=== PATIENT | male | born 1980 | race Caucasian/White ===

== ENCOUNTER 2016-11-22 23:59 | Inpatient (IN) | payer MEDICARE, MEDICAID ==
--- NOTE | 2016-11-23 00:35 | ED ---
Willard Charlton Benjamin, scribed for Adolph Coombs MD on 11/23/16 at 0021 . Psychiatric Complaint - HPI Summary HPI Summary: 36yo male reporting SI. Pt moved up from [place] and has been off his meds for couple of weeks. Pt states drinking alcohol earlier today. - History Of Current Complaint Chief Complaint: EDMentalHealth Time Seen by Provider: 11/23/16 00:15 Hx Obtained From: Patient Onset/Duration: Sudden Onset, Lasting Hours, Still Present Timing: Constant Severity Initially: Moderate Severity Currently: Moderate Character: Depressed Aggravating Factor(s): Nothing Alleviating Factor(s): Nothing Associated Signs And Symptoms: Positive: Negative - Allergies/Home Medications Allergies/Adverse Reactions: Allergies Allergy/AdvReac Type Severity Reaction Status Date / Time Valproic Acid [From Depakote] Allergy Vomiting Verified 11/23/16 00:03 PMH/Surg Hx/FS Hx/Imm Hx Cardiovascular History: Reports: Hx Hypertension Infectious Disease History: No Infectious Disease History: Denies: Traveled Outside the US in Last 30 Days - Family History Known Family History: Positive: Cardiac Disease, Hypertension, Diabetes, Other - CA - Social History Occupation: Unemployed Alcohol Use: Daily Smoking Status (MU): Current Every Day Smoker Review of Systems Constitutional: Negative Eyes: Negative ENT: Negative Cardiovascular: Negative Respiratory: Negative Gastrointestinal: Negative Genitourinary: Negative Musculoskeletal: Negative Skin: Negative Neurological: Negative Positive: Depressed, Other - SI All Other Systems Reviewed And Are Negative: Yes Physical Exam Triage Information Reviewed: Yes Vital Signs On Initial Exam: Initial Vitals Temp Pulse Resp BP Pulse Ox 98.3 F 102 18 132/92 97 11/23/16 00:03 11/23/16 00:03 11/23/16 00:03 11/23/16 00:03 11/23/16 00:03 Vital Signs Reviewed: Yes Appearance: Positive: No Pain Distress Skin: Positive: Warm Head/Face: Positive: Normal Head/Face Inspection Eyes: Positive: FREDDY ENT: Positive: Hearing grossly normal Neck: Positive: Supple Respiratory/Lung Sounds: Positive: Breath Sounds Present Cardiovascular: Positive: RRR Abdomen Description: Positive: Nontender, Soft Musculoskeletal: Positive: Strength/ROM Intact Neurological: Positive: Alert, Oriented to Person Place, Time Psychiatric: Positive: Anxious Diagnostics - Vital Signs Vital Signs Temp Pulse Resp BP Pulse Ox 11/23/16 00:03 98.3 F 102 18 132/92 97 - Laboratory Result Diagrams: 11/23/16 00:36 11/23/16 00:36 Lab Statement: Any lab studies that have been ordered have been reviewed, and results considered in the medical decision making process. Course/Dx - Differential Dx/Clinical Impression Provider Diagnosis: Suicidal ideations - Physician Notifications Instructed by Provider To: Admit As Inpatient Discharge - Discharge Plan Condition: Fair Disposition: ADMITTED TO [facility] Referrals: No Primary Care Phys,NOPCP [Primary Care Provider] - The documentation as recorded by the Willard han Benjamin accurately reflects the service I personally performed and the decisions made by me, Adolph Coombs MD.
[2016-11-23 00:52] LABS: Hematocrit 50 % (42-52); Hemoglobin 17.2 g/dl (14.0-18.0); Mean Corpuscular HGB Conc 34 g/dl (31-36); Mean Corpuscular Hemoglobin 31 pg (27-31); Mean Corpuscular Volume 90 fL (80-94); Mean Platelet Volume 8 um3 (7.4-10.4); Red Blood Count 5.62 10^6/ul (4.0-5.4); Red Cell Distribution Width 13 % (10.5-15); Urine Bilirubin Negative (Negative); Urine Glucose Negative (Negative); Urine Nitrite Negative (Negative); White Blood Count 8.1 10^3/ul (3.5-10.8)
[2016-11-23] MEDS ORDERED: LORazepam TAB(*) 1 MG PO ONE ×2 (01:08→01:09)
[2016-11-23 01:09] LABS: ALT 25 U/L (7-52); AST 23 U/L (13-39); Acetaminophen < 15 mcg/mL; Albumin 5.1 g/dL (3.2-5.2); Alcohol 175 mg/dL (<10); Alkaline Phosphatase 109 U/L (34-104); Anion Gap 11 mmol/L (2-11); BUN/Creatinine Ratio 9.9 (8-20); Blood Urea Nitrogen 9 mg/dL (6-24); CO2 Carbon Dioxide 23 mmol/L (22-32); Calcium 9.4 mg/dL (8.6-10.3); Chloride 104 mmol/L (101-111); EGFR African American 120.6 (>60); EGFR Non-African American 93.7 (>60); Globulin 2.8 g/dL (2-4); Glucose 83 mg/dL (70-100); Salicylate < 2.50 mg/dL (<30); Sodium 138 mmol/L (133-145); Total Protein 7.9 g/dL (6.4-8.9)
[2016-11-23 01:13] LABS: Benzodiazepine Urine Screen None Detected (None Detect)
[2016-11-23 01:20] LABS: TSH (Thyroid Stimulating Horm) 0.78 mcIU/mL (0.34-5.60)
[2016-11-23 09:22] LABS: Creatine Kinase 241 U/L (10-223)
[2016-11-23] MEDS ORDERED: Al Hydrox/Mg Hydrox/Simet LIQ* 30 ML UDC PO PRN (12:31)
[2016-11-23] MEDS ORDERED: Acetaminophen TAB* 325 MG PO PRN (12:31)
[2016-11-23] MEDS ORDERED: Nicotine GUM* 2 MG PO PRN (12:31)
[2016-11-23] MEDS ORDERED: Haloperidol TAB* 5 MG PO PRN (12:34)
[2016-11-23] MEDS ORDERED: Mouth Piece, Nicotine* 1 EACH CARTRIDGE ONE (13:21)
[2016-11-23] MEDS: Nicotine Inhaler* 10 MG AMP INH PRN ×2 (13:22→20:54)
[2016-11-23] MEDS: Gabapentin CAP(*) 300 MG PO SCH ×2 (14:31→20:55)
[2016-11-23] MEDS: Cyclobenzaprine TAB* 10 MG PO PRN ×2 (14:32→20:56)
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
[2016-11-24 08:01] VITALS: BP 121/73
[2016-11-24] MEDS: Gabapentin CAP(*) 300 MG PO SCH (08:21)
[2016-11-24] MEDS: Cyclobenzaprine TAB* 10 MG PO PRN (08:23)
[2016-11-24] MEDS: Nicotine Inhaler* 10 MG AMP INH PRN ×2 (08:23→10:46)
[2016-11-24] MEDS ORDERED: BuPROPion XL* 150 MG TAB.XL PO SCH (09:00)
[2016-11-24] MEDS ORDERED: Vitamin THERAPEUTIC TAB PO SCH (09:00)
--- NOTE | 2016-11-24 11:57 | PN ---
[facility]HU: Group Therapy Note - Service Type Service Type: 72060 Group Psychotherapy - Cognitive Behavioral Therapy (CBT): Patient presents with high volume of speech that impresses as being coherent within the context of self-report, but is tangential and off topic in group context. Concerns regarding disorganization of thought are apparent.
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
== END 2016-11-24 13:20 | disposition home or self-care (01) | DRG 897 ==
LOC: ED 23:59 → BSU 11-23 09:37
PROVIDERS: ADMIT Psychiatry & Neurology Psychiatry; ATTEND Psychiatry & Neurology Psychiatry
DX: F10.159 Alcohol abuse with alcohol-induced psychotic disorder, unspecified (principal); R45.851 Suicidal ideations; F12.10 Cannabis abuse, uncomplicated; Y90.6 Blood alcohol level of 120-199 mg/100 ml; M54.9 Dorsalgia, unspecified; R45.850 Homicidal ideations; F22 Delusional disorders; Z81.1 Family history of alcohol abuse and dependence
CPT/HCPCS: 36415; 70450; 80053; 80307; 80320; 80329; 81003; 82550; 84443; 85025; A9270-GY; G0480

== ENCOUNTER 2016-12-08 09:21 | Inpatient (IN) | payer MEDICARE ==
[2016-12-08 10:32] LABS: Hematocrit 50 % (42-52); Hemoglobin 17.1 g/dl (14.0-18.0); Mean Corpuscular HGB Conc 34 g/dl (31-36); Mean Corpuscular Hemoglobin 31 pg (27-31); Mean Corpuscular Volume 92 fL (80-94); Mean Platelet Volume 8 um3 (7.4-10.4); Red Blood Count 5.49 10^6/ul (4.0-5.4); Red Cell Distribution Width 13 % (10.5-15); White Blood Count 7.9 10^3/ul (3.5-10.8)
[2016-12-08 10:51] LABS: ALT 15 U/L (7-52); AST 18 U/L (13-39); Albumin 4.6 g/dL (3.2-5.2); Alkaline Phosphatase 92 U/L (34-104); Anion Gap 6 mmol/L (2-11); BUN/Creatinine Ratio 15.3 (8-20); Blood Urea Nitrogen 13 mg/dL (6-24); CO2 Carbon Dioxide 26 mmol/L (22-32); Calcium 9.3 mg/dL (8.6-10.3); Chloride 104 mmol/L (101-111); EGFR African American 130.4 (>60); EGFR Non-African American 101.4 (>60); Globulin 2.8 g/dL (2-4); Glucose 91 mg/dL (70-100); Potassium 3.6 mmol/L (3.5-5.0); Sodium 136 mmol/L (133-145); Total Protein 7.4 g/dL (6.4-8.9)
[2016-12-08 10:59] LABS: Acetaminophen < 15 mcg/mL; Alcohol < 10 mg/dL (<10); Salicylate < 2.50 mg/dL (<30)
[2016-12-08 11:09] LABS: TSH (Thyroid Stimulating Horm) 0.95 mcIU/mL (0.34-5.60)
[2016-12-08 11:41] LABS: Urine Bacteria Absent (Absent); Urine Bilirubin Negative (Negative); Urine Glucose Negative (Negative); Urine Nitrite Negative (Negative); Urine Sperm Present (Absent)
[2016-12-08 11:53] LABS: Benzodiazepine Urine Screen None Detected (None Detect)
[2016-12-08] MEDS ORDERED: LORazepam TAB(*) 1 MG PO ONE (12:04)
[2016-12-08] MEDS ORDERED: Al Hydrox/Mg Hydrox/Simet LIQ* 30 ML UDC PO PRN (14:13)
[2016-12-08] MEDS ORDERED: Mouth Piece, Nicotine* 1 EACH CARTRIDGE ONE (17:27)
[2016-12-08] MEDS: Cyclobenzaprine TAB* 10 MG PO PRN (17:27)
[2016-12-08] MEDS: OLANzapine TAB*ODT* 10 MG TAB PO PRN (17:28)
[2016-12-08] MEDS: Thiamine TAB* 100 MG TAB PO SCH (17:28)
[2016-12-08] MEDS: Nicotine Inhaler* 10 MG AMP INH PRN (17:29)
[2016-12-08] MEDS ORDERED: LORazepam IM* PER WAM PARAMETERS IM SCH (18:00)
[2016-12-08] MEDS: OLANzapine TAB* 5 MG PO SCH (21:07)
[2016-12-08] MEDS: Gabapentin CAP(*) 300 MG PO SCH (21:09)
[2016-12-09] MEDS: Nicotine Inhaler* 10 MG AMP INH PRN ×3 (06:54→14:44)
[2016-12-09] MEDS: Cyclobenzaprine TAB* 10 MG PO PRN ×2 (08:40→20:08)
[2016-12-09] MEDS: BuPROPion XL* 150 MG TAB.XL PO SCH (08:40)
[2016-12-09] MEDS: Gabapentin CAP(*) 300 MG PO SCH ×3 (08:40→20:09)
[2016-12-09] MEDS: Vitamin THERAPEUTIC TAB PO SCH (08:40)
[2016-12-09] MEDS: Thiamine TAB* 100 MG TAB PO SCH (08:40)
[2016-12-09] MEDS: Folic Acid TAB* 1 MG DAILY PO SCH (08:41)
[2016-12-09] MEDS: LORazepam TAB(*) WAM SCALE 0-6 MG PO SCH ×3 (09:16→20:08)
--- NOTE | 2016-12-09 10:58 | ED ---
Héctor Charlton Matthew, scribed for Amos Head MD on 12/08/16 at 1009 . Altered Mental Status - HPI Summary HPI Summary: A 36 y/o male presents to the ED with altered mental status since 3 weeks ago. The patient has been drinking constantly since [address] [facility]. The patient last drank this morning and stated he took a "sip" of beer. He's also been c/o of hearing voices that is described as mumbling and seeing hallucinations. He feels like he's in danger, depressed, and that he's lost his mind. He's also having suicidal ideation without a plan. - History Of Current Complaint Chief Complaint: EDMentalHealth Stated Complaint: ETOH Hx Obtained From: Patient Onset/Duration: Still Present Timing: Constant Severity Initially: Moderate Severity Currently: Moderate Aggravating Factor(s): Other - ETOH Has Suicidal: Thoughts - Allergies/Home Medications Allergies/Adverse Reactions: Allergies Allergy/AdvReac Type Severity Reaction Status Date / Time Valproic Acid [From Depakote] Allergy Vomiting Verified 12/08/16 09:23 PMH/Surg Hx/FS Hx/Imm Hx Cardiovascular History: Reports: Hx Hypertension Musculoskeletal History: Reports: Hx Fibromyalgia Sensory History: Reports: Hx Contacts or Glasses Opthamlomology History: Reports: Hx Contacts or Glasses Psychiatric History: Reports: Hx Anxiety, Hx Inpatient Treatment, Hx Bipolar Disorder, Hx Suicide Attempt, Hx of Violent Episodes Against Others, Hx Substance Abuse - Surgical History Surgery Procedure, Year, and Place: tonsilectomy Infectious Disease History: No Infectious Disease History: Denies: Traveled Outside the [place] in Last 30 Days - Family History Known Family History: Positive: Cardiac Disease, Hypertension, Diabetes, Other - [place] - Social History Alcohol Use: Daily Substance Use Type: Reports: Cocaine, Marijuana, Prescribed, Other Substance Use Comment - Amount & Last Used: cannabinoid postive Smoking Status (MU): Current Every Day Smoker Type: Cigarettes Amount Used/How Often: less than six a day Have You Smoked in the Last Year: Yes Review of Systems Constitutional: Other - tremulous Eyes: Negative ENT: Negative Cardiovascular: Negative Respiratory: Negative Gastrointestinal: Negative Genitourinary: Negative Musculoskeletal: Negative Skin: Negative Neurological: Negative Psychological: Other - SI, hearing voices; Hallucinations All Other Systems Reviewed And Are Negative: Yes Physical Exam Triage Information Reviewed: Yes Vital Signs On Initial Exam: Initial Vitals Temp Pulse Resp BP Pulse Ox 97.8 F 108 18 141/97 100 12/08/16 09:23 12/08/16 09:23 12/08/16 09:23 12/08/16 09:23 12/08/16 09:23 Vital Signs Reviewed: Yes Appearance: Positive: Well-Appearing, No Pain Distress Skin: Positive: Warm, Dry Head/Face: Positive: Normal Head/Face Inspection Eyes: Positive: Normal ENT: Positive: Normal ENT inspection Neck: Positive: Supple, Nontender Respiratory/Lung Sounds: Positive: Clear to Auscultation, Breath Sounds Present Cardiovascular: Positive: Pulses are Symmetrical in both Upper and Lower Extremities, Tachycardia Abdomen Description: Positive: Nontender, Soft Bowel Sounds: Positive: Present Musculoskeletal: Positive: Normal Neurological: Positive: Other - mildly tremulous Diagnostics - Vital Signs Vital Signs Temp Pulse Resp BP Pulse Ox 12/08/16 09:23 97.8 F 108 18 141/97 100 - Laboratory Lab Results: Lab Results 12/08/16 12/08/16 12/08/16 Range/Units 09:55 09:55 11:15 WBC 7.9 (3.5-10.8) 10^3/ul RBC 5.49 H (4.0-5.4) 10^6/ul Hgb 17.1 (14.0-18.0) g/dl Hct 50 (42-52) % MCV 92 (80-94) fL MCH 31 (27-31) pg MCHC 34 (31-36) g/dl RDW 13 (10.5-15) % Plt Count 239 (150-450) 10^3/ul MPV 8 (7.4-10.4) um3 Neut % (Auto) 72.0 (38-83) % Lymph % (Auto) 21.8 L (25-47) % [place] % (Auto) 4.8 (1-9) % Eos % (Auto) 1.0 (0-6) % Baso % (Auto) 0.4 (0-2) % Absolute Neuts (auto) 5.7 (1.5-7.7) 10^3/ul Absolute Lymphs (auto) 1.7 (1.0-4.8) 10^3/ul Absolute Monos (auto) 0.4 (0-0.8) 10^3/ul Absolute Eos (auto) 0.1 (0-0.6) 10^3/ul Absolute Basos (auto) 0 (0-0.2) 10^3/ul Absolute Nucleated RBC 0.01 10^3/ul Nucleated RBC % 0.1 Sodium 136 (133-145) mmol/L Potassium 3.6 (3.5-5.0) mmol/L Chloride 104 (101-111) mmol/L Carbon Dioxide 26 (22-32) mmol/L Anion Gap 6 (2-11) mmol/L BUN 13 (6-24) mg/dL Creatinine 0.85 (0.67-1.17) mg/dL Est GFR ( Amer) 130.4 (>60) Est GFR (Non-Af Amer) 101.4 (>60) BUN/Creatinine Ratio 15.3 (8-20) Glucose 91 (70-100) mg/dL Calcium 9.3 (8.6-10.3) mg/dL Total Bilirubin 0.40 (0.2-1.0) mg/dL AST 18 (13-39) U/L ALT 15 (7-52) U/L Alkaline Phosphatase 92 (34-104) U/L Total Protein 7.4 (6.4-8.9) g/dL Albumin 4.6 (3.2-5.2) g/dL Globulin 2.8 (2-4) g/dL Albumin/Globulin Ratio 1.6 (1-3) TSH 0.95 (0.34-5.60) mcIU/mL Urine Color Yellow Urine Appearance Cloudy Urine pH 6.0 (5-9) Ur Specific [place] 1.021 (1.010-1.030) Urine Protein 1+(30 mg/dl) H (Negative) Urine Ketones Negative (Negative) Urine Blood Negative (Negative) Urine Nitrate Negative (Negative) Urine Bilirubin Negative (Negative) Urine Urobilinogen Negative (Negative) Ur Leukocyte Esterase Negative (Negative) Urine WBC (Auto) Absent (Absent) Urine RBC (Auto) Absent (Absent) Ur Squamous Epith Cells Present H (Absent) Urine Bacteria Absent (Absent) Urine Sperm Present H (Absent) Urine Glucose Negative (Negative) Salicylates < 2.50 (<30) mg/dL Urine Opiates Screen (None Detect) Acetaminophen < 15 mcg/mL Ur Barbiturates Screen (None Detect) Ur Phencyclidine Scrn (None Detect) Ur Amphetamines Screen (None Detect) U Benzodiazepines Scrn (None Detect) Urine Cocaine Screen (None Detect) U Cannabinoids Screen (None Detect) Serum Alcohol < 10 (<10) mg/dL 12/08/16 Range/Units 11:15 WBC (3.5-10.8) 10^3/ul RBC (4.0-5.4) 10^6/ul Hgb (14.0-18.0) g/dl Hct (42-52) % MCV (80-94) fL MCH (27-31) pg MCHC (31-36) g/dl RDW (10.5-15) % Plt Count (150-450) 10^3/ul MPV (7.4-10.4) um3 Neut % (Auto) (38-83) % Lymph % (Auto) (25-47) % [place] % (Auto) (1-9) % Eos % (Auto) (0-6) % Baso % (Auto) (0-2) % Absolute Neuts (auto) (1.5-7.7) 10^3/ul Absolute Lymphs (auto) (1.0-4.8) 10^3/ul Absolute Monos (auto) (0-0.8) 10^3/ul Absolute Eos (auto) (0-0.6) 10^3/ul Absolute Basos (auto) (0-0.2) 10^3/ul Absolute Nucleated RBC 10^3/ul Nucleated RBC % Sodium (133-145) mmol/L Potassium (3.5-5.0) mmol/L Chloride (101-111) mmol/L Carbon Dioxide (22-32) mmol/L Anion Gap (2-11) mmol/L BUN (6-24) mg/dL Creatinine (0.67-1.17) mg/dL Est GFR ( Amer) (>60) Est GFR (Non-Af Amer) (>60) BUN/Creatinine Ratio (8-20) Glucose (70-100) mg/dL Calcium (8.6-10.3) mg/dL Total Bilirubin (0.2-1.0) mg/dL AST (13-39) U/L ALT (7-52) U/L Alkaline Phosphatase (34-104) U/L Total Protein (6.4-8.9) g/dL Albumin (3.2-5.2) g/dL Globulin (2-4) g/dL Albumin/Globulin Ratio (1-3) TSH (0.34-5.60) mcIU/mL Urine Color Urine Appearance Urine pH (5-9) Ur Specific [place] (1.010-1.030) Urine Protein (Negative) Urine Ketones (Negative) Urine Blood (Negative) Urine Nitrate (Negative) Urine Bilirubin (Negative) Urine Urobilinogen (Negative) Ur Leukocyte Esterase (Negative) Urine WBC (Auto) (Absent) Urine RBC (Auto) (Absent) Ur Squamous Epith Cells (Absent) Urine Bacteria (Absent) Urine Sperm (Absent) Urine Glucose (Negative) Salicylates (<30) mg/dL Urine Opiates Screen None detected (None Detect) Acetaminophen mcg/mL Ur Barbiturates Screen None detected (None Detect) Ur Phencyclidine Scrn None detected (None Detect) Ur Amphetamines Screen None detected (None Detect) U Benzodiazepines Scrn None detected (None Detect) Urine Cocaine Screen None detected (None Detect) U Cannabinoids Screen None detected (None Detect) Serum Alcohol (<10) mg/dL Result Diagrams: 12/08/16 09:55 12/08/16 09:55 Lab Statement: Any lab studies that have been ordered have been reviewed, and results considered in the medical decision making process. Altered Mental Statu Course/Dx - Diagnoses Discharge Diagnoses: Depression Discharge - Discharge Plan Condition: Stable Disposition: ADMITTED TO [facility] documentation as recorded by the Héctor han Matthew accurately reflects the service I personally performed and the decisions made by , Amos Head MD.
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
[2016-12-09] MEDS ORDERED: Nicotine PATCH 21 MG/24 HR* PATCH TRANSDERM SCH (15:00)
--- NOTE | 2016-12-09 18:25 | PN ---
Progress Note - Progress Note Note: Ranjit prefers to continue olanzapine as initiated on admission, rather than to start Risperdal.
[2016-12-09] MEDS: OLANzapine TAB* 5 MG PO SCH (20:09)
[2016-12-09] MEDS: Nicotine Patch Removal NOTE FOLLOW UP SCH (21:06)
[2016-12-09] MEDS: Nicotine PATCH 21 MG/24 HR* PATCH TRANSDERM SCH (21:07)
[2016-12-10] MEDS: LORazepam TAB(*) WAM SCALE 0-6 MG PO SCH ×4 (05:54→20:21)
[2016-12-10] MEDS: Nicotine Inhaler* 10 MG AMP INH PRN ×5 (06:46→20:17)
[2016-12-10] MEDS: Nicotine PATCH 21 MG/24 HR* PATCH TRANSDERM SCH (09:44)
[2016-12-10] MEDS: Gabapentin CAP(*) 300 MG PO SCH ×3 (09:44→20:17)
[2016-12-10] MEDS: Thiamine TAB* 100 MG TAB PO SCH (09:44)
[2016-12-10] MEDS: BuPROPion XL* 150 MG TAB.XL PO SCH (09:44)
[2016-12-10] MEDS: Vitamin THERAPEUTIC TAB PO SCH (09:44)
[2016-12-10] MEDS: Folic Acid TAB* 1 MG DAILY PO SCH (09:44)
[2016-12-10] MEDS ORDERED: Mouth Piece, Nicotine* 1 EACH CARTRIDGE ONE (16:09)
[2016-12-10] MEDS: Cyclobenzaprine TAB* 10 MG PO PRN (20:17)
[2016-12-10] MEDS: OLANzapine TAB* 5 MG PO SCH (20:17)
[2016-12-11] MEDS: Nicotine Patch Removal NOTE FOLLOW UP SCH ×2 (00:12→20:55)
[2016-12-11] MEDS: Nicotine PATCH 21 MG/24 HR* PATCH TRANSDERM SCH ×2 (04:45→08:05)
[2016-12-11] MEDS: Nicotine Inhaler* 10 MG AMP INH PRN ×4 (04:45→18:05)
[2016-12-11] MEDS: LORazepam TAB(*) WAM SCALE 0-6 MG PO SCH ×4 (05:29→15:52)
[2016-12-11] MEDS: OLANzapine TAB*ODT* 10 MG TAB PO PRN (07:44)
[2016-12-11] MEDS: BuPROPion XL* 150 MG TAB.XL PO SCH (08:05)
[2016-12-11] MEDS: Vitamin THERAPEUTIC TAB PO SCH (08:06)
[2016-12-11] MEDS: Folic Acid TAB* 1 MG DAILY PO SCH (08:06)
[2016-12-11] MEDS: Thiamine TAB* 100 MG TAB PO SCH (08:06)
[2016-12-11] MEDS: Gabapentin CAP(*) 300 MG PO SCH ×2 (08:07→14:10)
--- NOTE | 2016-12-11 15:19 | PN ---
Subjective - Subjective Service Type: 01896 Hosp care 15 min low complexity Subjective: The patient continues to complain of severe anxiety and his BP scores have continued to be high despite multiple administrations of lorazepam per the [facility] protocol. He reports that he must sign up for some sort of alcohol monitoring program as well as a domestic violence class in the community as mandated by his probation. He complains about the housing that he has in [place], indicating that it is filled with substance abusers and is a trigger for him to drink alcohol. He is somewhat resistant to the suggestion of drug rehab placement. The patient states that he has a history of treatment with lisinopril for HTN. He requests clonazepam for anxiety. Objective - Appearance Appearance: Well Developed/Nourished Dysmorphic Features: No Hygiene: Normal Grooming: Fairly Well Kept - Behavior Psychomotor Activities: Normal Exhibits Abnormal Movement: No - Attitude and Relatedness Attitude and Relatedness: Appropriate Eye Contact: Poor - Speech Quality: Unpressured Latencies: Long Quantity: Terse - Mood Patient's Decription of Mood: "Anxious" - Affect Observed Affect: Depressed Affect Consistent with: Dysphoria - Thought Process Patient's Thought Process: Coherent Thought Content: Yes Passive Wish, Yes Paranoid Ideation, No Suicidal Planning, No Homicidal Ideation - Sensorium Experiencing Hallucinations: No, Sensorium is Clear Type of Hallucinations: Visual: No, Auditory: No, Command: No - Level of Consciousness Level of Consciousness: Alert Orientation: Yes Intact, Yes Orientated to Time, Yes Orientated to Place, Yes Orientated to Person - Impulse Control Impulse Control: Poor - Insight and Judgement Insight and Judgement: Impaired - Group Participation Particating in Group Activities: Yes - Medication Management Medication Management Adherence: Yes Assessment - Assessment Merits Inpatient Hospitalization: For Immediate Safety, For Stabilization Inpatient DSM-IV Dx: 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 single, white, male with a history of polysubstance abuse, alcoholism and psychosis, as well as affective problems, who was brought by ambulance secondary to suicidal thinking, alcohol abuse and delusional beliefs that he has a chip implanted in his head. Plan - Plan Treatment Plan: Name: YOVANA SHELTON Birthdate: 1980 [id number] We will increase olanzapine from 5 to 10mg PO qhs and increase gabapentin from 300 to 400mg PO TID. We will add lisinopril 20mg PO qday for HTN and continue the [facility] protocol for alcohol detox. Will encourage rehab following psychiatric stabilization. Continued Medication Management: Continue Outpt Medication Medications: Current Medications Acetaminophen (Tylenol Tab*) 650 mg PO Q4H PRN PRN Reason: for pain; or Temp >101 F Al Hydrox/Mg Hydrox/Simethicone (Maalox Plus*) 30 ml PO Q4H PRN PRN Reason: INDIGESTION Bupropion HCl (Wellbutrin Xl *) 150 mg PO QAM [facility] PRN Reason: Protocol Last Admin: 12/11/16 08:05 Dose: 150 mg Cyclobenzaprine HCl (Flexeril Tab*) 10 mg PO BID PRN PRN Reason: PAIN Last Admin: 12/10/16 20:17 Dose: 10 mg Folic Acid (Folvite Tab*) 1 mg PO DAILY [facility] Last Admin: 12/11/16 08:06 Dose: 1 mg Gabapentin (Neurontin Cap(*)) 400 mg PO TID [facility] Lisinopril (Prinivil Tab*) 20 mg PO DAILY [facility] Lorazepam (Ativan Inj*) 0 - 6 mg IM .PER [facility] [employer] WILLIAM PRN Reason: Protocol Lorazepam (Ativan Tab(*)) 0 - 6 mg PO .PER [facility] PRN Reason: Protocol Last Admin: 12/11/16 11:17 Dose: 2 mg Multivitamins (Theragran Tab*) 1 tab PO DAILY [facility] Last Admin: 12/11/16 08:06 Dose: 1 tab Nicotine (Nicotine Inhaler*) 10 mg INH Q2H PRN PRN Reason: CRAVING Last Admin: 12/11/16 11:09 Dose: 10 mg Nicotine (Nicotine Patch 21 Mg/24 Hr*) 1 patch TRANSDERM DAILY [facility] Last Admin: 12/11/16 08:05 Dose: Not Given Nicotine Polacrilex (Nicotine Gum*) 2 mg PO Q2H PRN PRN Reason: CRAVING Olanzapine (Zyprexa *Odt*) 10 mg PO Q8H PRN PRN Reason: AGITATION/ANXIETY/INSOMNIA Last Admin: 12/11/16 07:44 Dose: 10 mg Olanzapine (Zyprexa Tab*) 10 mg PO BEDTIME [facility] Pharmacy Profile Note (Nicotine Patch Removal Note*) 1 note FOLLOW UP 2100 [facility] Last Admin: 12/11/16 00:12 Dose: 1 note Thiamine HCl (Vitamin B-1 Tab*) 100 mg PO DAILY [facility] Last Admin: 12/11/16 08:06 Dose: 100 mg - Discharge Plan Discharge Plan: Inpatient Hospitalization
[2016-12-11] MEDS: Lisinopril TAB* 10 MG PO SCH (18:05)
[2016-12-11] MEDS: Gabapentin CAP(*) 400 MG PO SCH (20:55)
[2016-12-11] MEDS: OLANzapine TAB* 5 MG PO SCH (20:55)
[2016-12-12] MEDS ORDERED: Mouth Piece, Nicotine* 1 EACH CARTRIDGE ONE (06:17)
[2016-12-12] MEDS: Nicotine Inhaler* 10 MG AMP INH PRN ×2 (06:19→12:55)
[2016-12-12] MEDS: OLANzapine TAB*ODT* 10 MG TAB PO PRN ×2 (06:20→15:02)
[2016-12-12] MEDS: Cyclobenzaprine TAB* 10 MG PO PRN ×2 (06:20→15:00)
[2016-12-12] MEDS: Nicotine PATCH 21 MG/24 HR* PATCH TRANSDERM SCH (10:59)
[2016-12-12] MEDS: Lisinopril TAB* 10 MG PO SCH (11:00)
[2016-12-12] MEDS: Vitamin THERAPEUTIC TAB PO SCH (11:00)
[2016-12-12] MEDS: Gabapentin CAP(*) 400 MG PO SCH ×3 (11:00→21:36)
[2016-12-12] MEDS: Thiamine TAB* 100 MG TAB PO SCH (11:01)
[2016-12-12] MEDS: Folic Acid TAB* 1 MG DAILY PO SCH (11:02)
[2016-12-12] MEDS: BuPROPion XL* 150 MG TAB.XL PO SCH (11:02)
[2016-12-12] MEDS: LORazepam TAB(*) WAM SCALE 0-6 MG PO SCH (11:50)
--- NOTE | 2016-12-12 14:10 | PN ---
Subjective - Subjective Service Type: [id number] Hosp care 15 min low complexity Subjective: The patient continues to endorse [facility] of [facility] and colors on the [place]. "I know I'm not the only one. Even people with like PhD's have talked about seeing this stuff." He is broached on the subject of inpatient rehab and appears ambivalent about this, stating he would like to be placed back on clonazepam. "Just call Dr. Duncan at [facility] in [place], [place]. He had me on clonazepam and I was straight." He is odd at times but participating in milieu treatment per staff. He denies SI today but still has paranoid thoughts that someone implanted a chip in his brain. Objective - Appearance Appearance: Well Developed/Nourished Dysmorphic Features: No Hygiene: Normal Grooming: Well Kept - Behavior Psychomotor Activities: Normal Exhibits Abnormal Movement: No - Attitude and Relatedness Attitude and Relatedness: Guarded Eye Contact: Fair - Speech Quality: Unpressured Latencies: Normal Quantity: Terse - Mood Patient's Decription of Mood: "Anxious" - Affect Observed Affect: Tense Affect Consistent with: Dysphoria - Thought Process Patient's Thought Process: Circumstantial Thought Content: Yes Paranoid Ideation, No Passive Wish, No Suicidal Planning, No Homicidal Ideation - Sensorium Experiencing Hallucinations: Yes Type of Hallucinations: Visual: Yes, Auditory: No, Command: No - Level of Consciousness Level of Consciousness: Alert Orientation: Yes Intact, Yes Orientated to Time, Yes Orientated to Place, Yes Orientated to Person - Impulse Control Impulse Control: Poor - Insight and Judgement Insight and Judgement: Impaired - Group Participation Particating in Group Activities: Yes - Medication Management Medication Management Adherence: Yes Assessment - Assessment Merits Inpatient Hospitalization: For Immediate Safety, For Stabilization Inpatient DSM-IV Dx: 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 single, white, male with a history of polysubstance abuse, alcoholism and psychosis, as well as affective problems, who was brought by ambulance secondary to suicidal thinking, alcohol abuse and delusional beliefs that he has a chip implanted in his head. Plan - Plan Treatment Plan: Name: YOVANA SHELTON Birthdate: 1980 [id number] The patient is on olanzapine 10mg PO qhs and gabapentin 400mg PO TID. We added lisinopril 20mg PO qday for HTN and continue the [facility] protocol for alcohol detox. Will encourage rehab following psychiatric stabilization. Continued Medication Management: Start Medication Medications: Current Medications Acetaminophen (Tylenol Tab*) 650 mg PO Q4H PRN PRN Reason: for pain; or Temp >101 F Al Hydrox/Mg Hydrox/Simethicone (Maalox Plus*) 30 ml PO Q4H PRN PRN Reason: INDIGESTION Bupropion HCl (Wellbutrin Xl *) 150 mg PO QAM [facility] PRN Reason: Protocol Last Admin: 12/12/16 11:02 Dose: 150 mg Cyclobenzaprine HCl (Flexeril Tab*) 10 mg PO BID PRN PRN Reason: PAIN Last Admin: 12/12/16 06:20 Dose: 10 mg Folic Acid (Folvite Tab*) 1 mg PO DAILY [facility] Last Admin: 12/12/16 11:02 Dose: 1 mg Gabapentin (Neurontin Cap(*)) 400 mg PO TID [facility] Last Admin: 12/12/16 11:00 Dose: 400 mg Lisinopril (Prinivil Tab*) 20 mg PO DAILY [facility] Last Admin: 12/12/16 11:00 Dose: 20 mg Lorazepam (Ativan Inj*) 0 - 6 mg IM .PER [facility] PRN Reason: Protocol Lorazepam (Ativan Tab(*)) 0 - 6 mg PO .PER [facility] PRN Reason: Protocol Last Admin: 12/12/16 11:50 Dose: 2 mg Multivitamins (Theragran Tab*) 1 tab PO DAILY [facility] Last Admin: 12/12/16 11:00 Dose: 1 tab Nicotine (Nicotine Inhaler*) 10 mg INH Q2H PRN PRN Reason: CRAVING Last Admin: 12/12/16 12:55 Dose: 10 mg Nicotine (Nicotine Patch 21 Mg/24 Hr*) 1 patch TRANSDERM DAILY [facility] Last Admin: 12/12/16 10:59 Dose: 1 patch Nicotine Polacrilex (Nicotine Gum*) 2 mg PO Q2H PRN PRN Reason: CRAVING Olanzapine (Zyprexa *Odt*) 10 mg PO Q8H PRN PRN Reason: AGITATION/ANXIETY/INSOMNIA Last Admin: 12/12/16 06:20 Dose: 10 mg Olanzapine (Zyprexa Tab*) 10 mg PO BEDTIME [facility] Last Admin: 12/11/16 20:55 Dose: 10 mg Pharmacy Profile Note (Nicotine Patch Removal Note*) 1 note FOLLOW UP 2100 [facility] Last Admin: 12/11/16 20:55 Dose: Not Given Thiamine HCl (Vitamin B-1 Tab*) 100 mg PO DAILY [facility] Last Admin: 12/12/16 11:01 Dose: 100 mg - Discharge Plan Discharge Plan: Inpatient Hospitalization
[2016-12-12] MEDS: Acetaminophen TAB* 325 MG PO PRN (16:13)
[2016-12-12] MEDS: OLANzapine TAB* 5 MG PO SCH (21:36)
[2016-12-12] MEDS: Nicotine Patch Removal NOTE FOLLOW UP SCH (23:51)
[2016-12-13] MEDS: Nicotine Inhaler* 10 MG AMP INH PRN ×3 (06:09→16:07)
[2016-12-13] MEDS: Nicotine PATCH 21 MG/24 HR* PATCH TRANSDERM SCH ×2 (06:09→14:19)
[2016-12-13] MEDS: Cyclobenzaprine TAB* 10 MG PO PRN ×2 (06:11→12:29)
[2016-12-13] MEDS: OLANzapine TAB*ODT* 10 MG TAB PO PRN ×2 (06:11→13:18)
[2016-12-13] MEDS: Nicotine GUM* 2 MG PO PRN ×2 (08:45→12:30)
[2016-12-13] MEDS: Thiamine TAB* 100 MG TAB PO SCH (08:46)
[2016-12-13] MEDS: BuPROPion XL* 150 MG TAB.XL PO SCH (08:46)
[2016-12-13] MEDS: Gabapentin CAP(*) 400 MG PO SCH ×2 (08:46→13:17)
[2016-12-13] MEDS: Lisinopril TAB* 10 MG PO SCH (08:47)
[2016-12-13] MEDS: Vitamin THERAPEUTIC TAB PO SCH (08:50)
[2016-12-13] MEDS: Folic Acid TAB* 1 MG DAILY PO SCH (08:50)
[2016-12-13] MEDS ORDERED: Mouth Piece, Nicotine* 1 EACH CARTRIDGE ONE (12:29)
--- NOTE | 2016-12-13 14:33 | PN ---
Subjective - Subjective Service Type: [id number] Hosp care 15 min low complexity Subjective: The patient states that he is having severe depression today but denies SI. "I' ve reached out for help before and look where I'm back to now?" He has had limited participation in groups and has an explanation for this. "When I go into those places I can feel everybody's emotions. I've always had that ability." He continues to request clonazepam for anxiety and is educated of the risks of mixing benzo's with alcohol. He continues to waffle on the topic of drug/ETOH rehab. Objective - Appearance Appearance: Well Developed/Nourished Dysmorphic Features: No Hygiene: Normal Grooming: Fairly Well Kept - Behavior Psychomotor Activities: Normal Exhibits Abnormal Movement: No - Attitude and Relatedness Attitude and Relatedness: Cooperative Eye Contact: Good - Speech Quality: Unpressured Latencies: Long Quantity: Appropriate - Mood Patient's Decription of Mood: "Sad" - Affect Observed Affect: Depressed Affect Consistent with: Dysphoria - Thought Process Patient's Thought Process: Coherent Thought Content: Yes Paranoid Ideation, No Passive Wish, No Suicidal Planning, No Homicidal Ideation - Sensorium Experiencing Hallucinations: Yes Type of Hallucinations: Visual: Yes, Auditory: No, Command: No - Level of Consciousness Level of Consciousness: Alert Orientation: Yes Intact, Yes Orientated to Time, Yes Orientated to Place, Yes Orientated to Person - Impulse Control Impulse Control: Poor - Insight and Judgement Insight and Judgement: Impaired - Group Participation Particating in Group Activities: No - Medication Management Medication Management Adherence: Yes Assessment - Assessment Merits Inpatient Hospitalization: For Immediate Safety, For Stabilization Inpatient DSM-IV Dx: 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 single, white, male with a history of polysubstance abuse, alcoholism and psychosis, as well as affective problems, who was brought by ambulance secondary to suicidal thinking, alcohol abuse and delusional beliefs that he has a chip implanted in his head. Plan - Plan Treatment Plan: Name: YOVANA SHELTON Birthdate: 1980 [id number] The patient is on olanzapine 10mg PO qhs, bupropion XL 150mg PO QAM and gabapentin 400mg PO TID. We added lisinopril 20mg PO qday for HTN. We will increase bupropion XL to 300mg PO QAM and increase gabapentin to 600mg PO TID. Will encourage rehab following psychiatric stabilization. Continued Medication Management: Continue Outpt Medication Medications: Current Medications Acetaminophen (Tylenol Tab*) 650 mg PO Q4H PRN PRN Reason: for pain; or Temp >101 F Last Admin: 12/12/16 16:13 Dose: 650 mg Al Hydrox/Mg Hydrox/Simethicone (Maalox Plus*) 30 ml PO Q4H PRN PRN Reason: INDIGESTION Bupropion HCl (Wellbutrin Xl *) 300 mg PO QAM [facility] PRN Reason: Protocol Cyclobenzaprine HCl (Flexeril Tab*) 10 mg PO BID PRN PRN Reason: PAIN Last Admin: 12/13/16 12:29 Dose: 10 mg Folic Acid (Folvite Tab*) 1 mg PO DAILY [facility] Last Admin: 12/13/16 08:50 Dose: 1 mg Gabapentin (Neurontin Cap(*)) 600 mg PO TID [facility] Lisinopril (Prinivil Tab*) 20 mg PO DAILY [facility] Last Admin: 12/13/16 08:47 Dose: 20 mg Multivitamins (Theragran Tab*) 1 tab PO DAILY [facility] Last Admin: 12/13/16 08:50 Dose: 1 tab Nicotine (Nicotine Inhaler*) 10 mg INH Q2H PRN PRN Reason: CRAVING Last Admin: 12/13/16 12:30 Dose: 10 mg Nicotine (Nicotine Patch 21 Mg/24 Hr*) 1 patch TRANSDERM DAILY [facility] Last Admin: 12/13/16 14:19 Dose: Not Given Nicotine Polacrilex (Nicotine Gum*) 2 mg PO Q2H PRN PRN Reason: CRAVING Last Admin: 12/13/16 12:30 Dose: 2 mg Olanzapine (Zyprexa *Odt*) 10 mg PO Q8H PRN PRN Reason: AGITATION/ANXIETY/INSOMNIA Last Admin: 12/13/16 13:18 Dose: 10 mg Olanzapine (Zyprexa Tab*) 10 mg PO BEDTIME [facility] Last Admin: 12/12/16 21:36 Dose: 10 mg Pharmacy Profile Note (Nicotine Patch Removal Note*) 1 note FOLLOW UP 2100 [facility] Last Admin: 12/12/16 23:51 Dose: Not Given Thiamine HCl (Vitamin B-1 Tab*) 100 mg PO DAILY [facility] Last Admin: 12/13/16 08:46 Dose: 100 mg - Discharge Plan Discharge Plan: Inpatient Hospitalization
[2016-12-13] MEDS: Acetaminophen TAB* 325 MG PO PRN (16:51)
[2016-12-13] MEDS: OLANzapine TAB* 5 MG PO SCH (21:18)
[2016-12-13] MEDS: Gabapentin CAP(*) 300 MG PO SCH (21:19)
[2016-12-13] MEDS: Nicotine Patch Removal NOTE FOLLOW UP SCH (21:22)
[2016-12-14] MEDS: Nicotine PATCH 21 MG/24 HR* PATCH TRANSDERM SCH (08:24)
[2016-12-14] MEDS: Nicotine Inhaler* 10 MG AMP INH PRN ×4 (08:24→21:37)
[2016-12-14] MEDS: Gabapentin CAP(*) 300 MG PO SCH ×3 (08:25→20:45)
[2016-12-14] MEDS: Thiamine TAB* 100 MG TAB PO SCH (08:25)
[2016-12-14] MEDS: Lisinopril TAB* 10 MG PO SCH (08:26)
[2016-12-14] MEDS: BuPROPion XL* 150 MG TAB.XL PO SCH (08:27)
[2016-12-14] MEDS: Vitamin THERAPEUTIC TAB PO SCH (08:27)
[2016-12-14] MEDS: Folic Acid TAB* 1 MG DAILY PO SCH (08:28)
[2016-12-14] MEDS: OLANzapine TAB*ODT* 10 MG TAB PO PRN (12:37)
[2016-12-14] MEDS: Cyclobenzaprine TAB* 10 MG PO PRN (13:49)
--- NOTE | 2016-12-14 14:09 | PN ---
Subjective - Subjective Service Type: [id number] Hosp care 15 min low complexity Subjective: The patient is in distress at this time, and has just received prn olanzapine for acute anxiety related to psychosis. He complains of auditory hallucinations of a threatening and derogatory nature, telling him they will hurt him and providing an unwelcome commentary on his actions and thoughts. He identified multiple voices, mostly male, which he hears both inside and outside his head, and sometimes attributes to others on the unit before realizing they are hallucinatory. He requests an increase in his olanzapine and appears uncomfortable talking about this subject. He denies SI but admits to a powerful compulsion to go drink alcohol to make the voices go away. Objective - Appearance Appearance: Well Developed/Nourished Dysmorphic Features: No Hygiene: Normal Grooming: Fairly Well Kept - Behavior Psychomotor Activities: Normal Exhibits Abnormal Movement: No - Attitude and Relatedness Attitude and Relatedness: Cooperative Eye Contact: Fair - Speech Quality: Unpressured Latencies: Normal Quantity: Appropriate - Mood Patient's Decription of Mood: "Anxious" - Affect Observed Affect: Tense Affect Consistent with: Dysphoria - Thought Process Patient's Thought Process: Coherent Thought Content: Yes Paranoid Ideation, No Passive Wish, No Suicidal Planning, No Homicidal Ideation - Sensorium Experiencing Hallucinations: Yes Type of Hallucinations: Visual: Yes, Auditory: Yes, Command: No - Level of Consciousness Level of Consciousness: Alert Orientation: Yes Intact, Yes Orientated to Time, Yes Orientated to Place, Yes Orientated to Person - Impulse Control Impulse Control: Tenuous - Insight and Judgement Insight and Judgement: Fair - Group Participation Particating in Group Activities: No - Medication Management Medication Management Adherence: Yes Assessment - Assessment Merits Inpatient Hospitalization: For Immediate Safety, For Stabilization Inpatient DSM-IV Dx: 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 single, white, male with a history of polysubstance abuse, alcoholism and psychosis, as well as affective problems, who was brought by ambulance secondary to suicidal thinking, alcohol abuse and delusional beliefs that he has a chip implanted in his head. Plan - Plan Treatment Plan: Name: YOVANA SHELTON Birthdate: 1980 [id number] The patient is on olanzapine 10mg PO qhs, bupropion XL 300mg PO QAM and gabapentin 600mg PO TID. We added lisinopril 20mg PO qday for HTN. We will increase olanzapine to 15mg PO qhs and delay rehab placement for after the time of sustained psychiatric stabilization. Continued Medication Management: Different Medication Medications: Current Medications Acetaminophen (Tylenol Tab*) 650 mg PO Q4H PRN PRN Reason: for pain; or Temp >101 F Last Admin: 12/13/16 16:51 Dose: 650 mg Al Hydrox/Mg Hydrox/Simethicone (Maalox Plus*) 30 ml PO Q4H PRN PRN Reason: INDIGESTION Bupropion HCl (Wellbutrin Xl *) 300 mg PO QAM [facility] PRN Reason: Protocol Last Admin: 12/14/16 08:27 Dose: 300 mg Cyclobenzaprine HCl (Flexeril Tab*) 10 mg PO BID PRN PRN Reason: PAIN Last Admin: 12/14/16 13:49 Dose: 10 mg Folic Acid (Folvite Tab*) 1 mg PO DAILY [facility] Last Admin: 12/14/16 08:28 Dose: 1 mg Gabapentin (Neurontin Cap(*)) 600 mg PO TID [facility] Last Admin: 12/14/16 13:48 Dose: 600 mg Lisinopril (Prinivil Tab*) 20 mg PO DAILY [facility] Last Admin: 12/14/16 08:26 Dose: 20 mg Multivitamins (Theragran Tab*) 1 tab PO DAILY [facility] Last Admin: 12/14/16 08:27 Dose: 1 tab Nicotine (Nicotine Inhaler*) 10 mg INH Q2H PRN PRN Reason: CRAVING Last Admin: 12/14/16 12:36 Dose: 10 mg Nicotine (Nicotine Patch 21 Mg/24 Hr*) 1 patch TRANSDERM DAILY [facility] Last Admin: 12/14/16 08:24 Dose: 1 patch Nicotine Polacrilex (Nicotine Gum*) 2 mg PO Q2H PRN PRN Reason: CRAVING Last Admin: 12/13/16 12:30 Dose: 2 mg Olanzapine (Zyprexa *Odt*) 10 mg PO Q8H PRN PRN Reason: AGITATION/ANXIETY/INSOMNIA Last Admin: 12/14/16 12:37 Dose: 10 mg Olanzapine (Zyprexa Tab*) 15 mg PO BEDTIME [facility] Pharmacy Profile Note (Nicotine Patch Removal Note*) 1 note FOLLOW UP 2100 [facility] Last Admin: 12/13/16 21:22 Dose: 1 note Thiamine HCl (Vitamin B-1 Tab*) 100 mg PO DAILY [facility] Last Admin: 12/14/16 08:25 Dose: 100 mg - Discharge Plan Discharge Plan: Inpatient Hospitalization
[2016-12-14] MEDS: Nicotine GUM* 2 MG PO PRN ×2 (15:22→21:37)
[2016-12-14] MEDS: OLANzapine TAB* 5 MG PO SCH (20:47)
[2016-12-14] MEDS: Nicotine Patch Removal NOTE FOLLOW UP SCH (21:38)
[2016-12-15] MEDS: Nicotine Inhaler* 10 MG AMP INH PRN ×2 (08:16→15:53)
[2016-12-15] MEDS: Nicotine GUM* 2 MG PO PRN ×2 (08:16→15:53)
[2016-12-15] MEDS: Nicotine PATCH 21 MG/24 HR* PATCH TRANSDERM SCH (08:16)
[2016-12-15] MEDS: Vitamin THERAPEUTIC TAB PO SCH (08:17)
[2016-12-15] MEDS: Folic Acid TAB* 1 MG DAILY PO SCH (08:17)
[2016-12-15] MEDS: Lisinopril TAB* 10 MG PO SCH (08:17)
[2016-12-15] MEDS: Gabapentin CAP(*) 300 MG PO SCH ×3 (08:17→21:08)
[2016-12-15] MEDS: Thiamine TAB* 100 MG TAB PO SCH (08:18)
[2016-12-15] MEDS: BuPROPion XL* 150 MG TAB.XL PO SCH (08:18)
[2016-12-15] MEDS: Cyclobenzaprine TAB* 10 MG PO PRN ×2 (09:59→21:07)
[2016-12-15] MEDS: OLANzapine TAB*ODT* 10 MG TAB PO PRN (09:59)
[2016-12-15] MEDS ORDERED: Diazepam TAB(*) 10 MG PO ONE (10:48)
--- NOTE | 2016-12-15 11:02 | PN ---
Subjective - Subjective Service Type: [id number] Hosp care 15 min low complexity Subjective: The patient is found in his room, clutching his knees while sitting up in bed and appearing in marked psychological distress. He states that he just received a prn of olanzapine for "a panic attack." The patient feels that ever since his increase in bupropion he has been extremely anxious and seriously craving alcohol. He asks, yet again, if I would consider adding clonazepam to his regimen. "I've been prescribed that in the past and done well." I reiterate the risks of benzo usage in those with significant substance abuse histories and we negotiate a plan in which he will receive a one-time dose of diazepam, while also discontinuing bupropion in favor of a trial of citalopram, which he reports having favorable results from in the past. He denies SI but is still endorsing AH. Objective - Appearance Appearance: Well Developed/Nourished Dysmorphic Features: No Hygiene: Normal Grooming: Well Kept - Behavior Psychomotor Activities: Normal Exhibits Abnormal Movement: No - Attitude and Relatedness Attitude and Relatedness: Needy Eye Contact: Poor - Speech Quality: Unpressured Latencies: Normal Quantity: Terse - Mood Patient's Decription of Mood: "Anxious" - Affect Observed Affect: Constricted Affect Consistent with: Dysphoria - Thought Process Patient's Thought Process: Coherent Thought Content: Yes Paranoid Ideation, No Passive Wish, No Suicidal Planning, No Homicidal Ideation - Sensorium Experiencing Hallucinations: Yes Type of Hallucinations: Visual: Yes, Auditory: Yes, Command: No - Level of Consciousness Level of Consciousness: Alert Orientation: Yes Intact, Yes Orientated to Time, Yes Orientated to Place, Yes Orientated to Person - Impulse Control Impulse Control: Tenuous - Insight and Judgement Insight and Judgement: Fair - Group Participation Particating in Group Activities: No - Medication Management Medication Management Adherence: Yes Assessment - Assessment Merits Inpatient Hospitalization: For Immediate Safety, For Stabilization Inpatient DSM-IV Dx: 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 single, white, male with a history of polysubstance abuse, alcoholism and psychosis, as well as affective problems, who was brought by ambulance secondary to suicidal thinking, alcohol abuse and delusional beliefs that he has a chip implanted in his head. Plan - Plan Treatment Plan: Name: YOVANA SHELTON Birthdate: 1980 [id number] The patient is on olanzapine 15mg PO qhs, bupropion XL 300mg PO QAM and gabapentin 600mg PO TID. We added lisinopril 20mg PO qday for HTN. We will discontinue bupropion, as it appears this is over-activating him, and replace it with a trial of citalopram 20mg PO qday. We will delay alcohol rehab placement for after the time of sustained psychiatric stabilization. Continued Medication Management: Different Medication Medications: Current Medications Acetaminophen (Tylenol Tab*) 650 mg PO Q4H PRN PRN Reason: for pain; or Temp >101 F Last Admin: 12/13/16 16:51 Dose: 650 mg Al Hydrox/Mg Hydrox/Simethicone (Maalox Plus*) 30 ml PO Q4H PRN PRN Reason: INDIGESTION Citalopram Hydrobromide (Celexa Tab*) 20 mg PO DAILY [facility] Cyclobenzaprine HCl (Flexeril Tab*) 10 mg PO BID PRN PRN Reason: PAIN Last Admin: 12/15/16 09:59 Dose: 10 mg Folic Acid (Folvite Tab*) 1 mg PO DAILY [facility] Last Admin: 12/15/16 08:17 Dose: 1 mg Gabapentin (Neurontin Cap(*)) 600 mg PO TID [facility] Last Admin: 12/15/16 08:17 Dose: 600 mg Lisinopril (Prinivil Tab*) 20 mg PO DAILY [facility] Last Admin: 12/15/16 08:17 Dose: 20 mg Multivitamins (Theragran Tab*) 1 tab PO DAILY [facility] Last Admin: 12/15/16 08:17 Dose: 1 tab Nicotine (Nicotine Inhaler*) 10 mg INH Q2H PRN PRN Reason: CRAVING Last Admin: 12/15/16 08:16 Dose: 10 mg Nicotine (Nicotine Patch 21 Mg/24 Hr*) 1 patch TRANSDERM DAILY [facility] Last Admin: 12/15/16 08:16 Dose: 1 patch Nicotine Polacrilex (Nicotine Gum*) 2 mg PO Q2H PRN PRN Reason: CRAVING Last Admin: 12/15/16 08:16 Dose: 2 mg Olanzapine (Zyprexa *Odt*) 10 mg PO Q8H PRN PRN Reason: AGITATION/ANXIETY/INSOMNIA Last Admin: 12/15/16 09:59 Dose: 10 mg Olanzapine (Zyprexa Tab*) 15 mg PO BEDTIME [facility] Last Admin: 12/14/16 20:47 Dose: 15 mg Pharmacy Profile Note (Nicotine Patch Removal Note*) 1 note FOLLOW UP 2100 [facility] Last Admin: 12/14/16 21:38 Dose: 1 note Thiamine HCl (Vitamin B-1 Tab*) 100 mg PO DAILY [facility] Last Admin: 12/15/16 08:18 Dose: 100 mg - Discharge Plan Discharge Plan: Inpatient Hospitalization
[2016-12-15] MEDS: Citalopram TAB* 20 MG PO SCH (11:27)
[2016-12-15] MEDS: Acetaminophen TAB* 325 MG PO PRN (21:07)
[2016-12-15] MEDS: OLANzapine TAB* 5 MG PO SCH (21:08)
[2016-12-15] MEDS: Nicotine Patch Removal NOTE FOLLOW UP SCH (21:09)
[2016-12-16] MEDS: Nicotine Inhaler* 10 MG AMP INH PRN ×4 (08:43→19:56)
[2016-12-16] MEDS: Nicotine PATCH 21 MG/24 HR* PATCH TRANSDERM SCH (08:43)
[2016-12-16] MEDS: Citalopram TAB* 20 MG PO SCH (08:44)
[2016-12-16] MEDS: Gabapentin CAP(*) 300 MG PO SCH ×3 (08:45→19:55)
[2016-12-16] MEDS: Vitamin THERAPEUTIC TAB PO SCH (08:45)
[2016-12-16] MEDS: Thiamine TAB* 100 MG TAB PO SCH (08:45)
[2016-12-16] MEDS: Folic Acid TAB* 1 MG DAILY PO SCH (08:46)
[2016-12-16] MEDS: Lisinopril TAB* 10 MG PO SCH (09:28)
[2016-12-16] MEDS: Nicotine GUM* 2 MG PO PRN ×2 (11:39→17:51)
[2016-12-16] MEDS: Cyclobenzaprine TAB* 10 MG PO PRN ×2 (13:44→19:56)
[2016-12-16] MEDS: OLANzapine TAB*ODT* 10 MG TAB PO PRN (13:44)
[2016-12-16] MEDS: Acetaminophen TAB* 325 MG PO PRN (17:51)
[2016-12-16] MEDS: OLANzapine TAB* 5 MG PO SCH (19:54)
[2016-12-16] MEDS: Nicotine Patch Removal NOTE FOLLOW UP SCH (21:03)
[2016-12-17] MEDS: Nicotine PATCH 21 MG/24 HR* PATCH TRANSDERM SCH (08:29)
[2016-12-17] MEDS: Thiamine TAB* 100 MG TAB PO SCH (08:30)
[2016-12-17] MEDS: Citalopram TAB* 20 MG PO SCH (08:30)
[2016-12-17] MEDS: Gabapentin CAP(*) 300 MG PO SCH ×3 (08:31→20:31)
[2016-12-17] MEDS: Lisinopril TAB* 10 MG PO SCH (08:31)
[2016-12-17] MEDS: Vitamin THERAPEUTIC TAB PO SCH (08:32)
[2016-12-17] MEDS: Folic Acid TAB* 1 MG DAILY PO SCH (08:33)
[2016-12-17] MEDS: Nicotine Inhaler* 10 MG AMP INH PRN ×2 (08:34→11:16)
[2016-12-17] MEDS: OLANzapine TAB* 5 MG PO SCH (20:31)
[2016-12-17] MEDS: Cyclobenzaprine TAB* 10 MG PO PRN (20:32)
[2016-12-17] MEDS: Nicotine Patch Removal NOTE FOLLOW UP SCH (20:32)
[2016-12-18] MEDS: Nicotine PATCH 21 MG/24 HR* PATCH TRANSDERM SCH (09:47)
[2016-12-18] MEDS: Thiamine TAB* 100 MG TAB PO SCH (09:48)
[2016-12-18] MEDS: Gabapentin CAP(*) 300 MG PO SCH ×3 (09:48→20:30)
[2016-12-18] MEDS: Citalopram TAB* 20 MG PO SCH (09:48)
[2016-12-18] MEDS: Lisinopril TAB* 10 MG PO SCH (09:49)
[2016-12-18] MEDS: Vitamin THERAPEUTIC TAB PO SCH (09:50)
[2016-12-18] MEDS: Folic Acid TAB* 1 MG DAILY PO SCH (09:51)
[2016-12-18] MEDS: Cyclobenzaprine TAB* 10 MG PO PRN ×2 (09:51→20:33)
--- NOTE | 2016-12-18 13:33 | PN ---
Subjective - Subjective Service Type: [id number] Hosp care 15 min low complexity Subjective: Ranjit is reporting that he feels more regulated but continues to have anxiety. He shows me that his hands are tremulous and inquires about being started on scheduled diazepam. "Man, that dose of valium you gave me Sunday made me feel relaxed. I went to groups. 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 The patient is willing to consider drug rehab. He appears less psychotic than last week and denies SI, AH or VH. Objective - Appearance Appearance: Well Developed/Nourished Dysmorphic Features: No Hygiene: Normal Grooming: Fairly Well Kept - Behavior Psychomotor Activities: Abnormal-Increased Exhibits Abnormal Movement: No - Attitude and Relatedness Attitude and Relatedness: Cooperative Eye Contact: Fair - Speech Quality: Unpressured Latencies: Normal Quantity: Appropriate - Mood Patient's Decription of Mood: "Anxious" - Affect Observed Affect: Tense Affect Consistent with: Dysphoria - Thought Process Patient's Thought Process: Coherent Thought Content: No Passive Wish, No Suicidal Planning, No Homicidal Ideation, No Paranoid Ideation - Sensorium Experiencing Hallucinations: No, Sensorium is Clear Type of Hallucinations: Visual: No, Auditory: No, Command: No - Level of Consciousness Level of Consciousness: Alert Orientation: Yes Intact, Yes Orientated to Time, Yes Orientated to Place, Yes Orientated to Person - Impulse Control Impulse Control: Tenuous - Insight and Judgement Insight and Judgement: Fair - Group Participation Particating in Group Activities: No - Medication Management Medication Management Adherence: Yes Assessment - Assessment Merits Inpatient Hospitalization: Consolidate Improvements, Pending Safe DC Plan Inpatient DSM-IV Dx: 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 single, white, male with a history of polysubstance abuse, alcoholism and psychosis, as well as affective problems, who was brought by ambulance secondary to suicidal thinking, alcohol abuse and delusional beliefs that he has a chip implanted in his head. Plan - Plan Treatment Plan: Name: RANJIT SHELTON Birthdate: 1980 [id number] The patient is on olanzapine 15mg PO qhs, citalopram 20mg PO qday and gabapentin 600mg PO TID. We added lisinopril 20mg PO qday for HTN. We will add a trial of clonidine 0.1mg PO BID for his anxiety and tremulousness. He would be appropriate for alcohol rehab placement at this time. Continued Medication Management: Different Medication Medications: Current Medications Acetaminophen (Tylenol Tab*) 650 mg PO Q4H PRN PRN Reason: for pain; or Temp >101 F Last Admin: 12/16/16 17:51 Dose: 650 mg Al Hydrox/Mg Hydrox/Simethicone (Maalox Plus*) 30 ml PO Q4H PRN PRN Reason: INDIGESTION Citalopram Hydrobromide (Celexa Tab*) 20 mg PO DAILY [facility] Last Admin: 12/18/16 09:48 Dose: 20 mg Clonidine HCl (Catapres Tab*) 0.1 mg PO BID [facility] Cyclobenzaprine HCl (Flexeril Tab*) 10 mg PO BID PRN PRN Reason: PAIN Last Admin: 12/18/16 09:51 Dose: 10 mg Folic Acid (Folvite Tab*) 1 mg PO DAILY [facility] Last Admin: 12/18/16 09:51 Dose: 1 mg Gabapentin (Neurontin Cap(*)) 600 mg PO TID [facility] Last Admin: 12/18/16 09:48 Dose: 600 mg Lisinopril (Prinivil Tab*) 20 mg PO DAILY [facility] Last Admin: 12/18/16 09:49 Dose: 20 mg Multivitamins (Theragran Tab*) 1 tab PO DAILY [facility] Last Admin: 12/18/16 09:50 Dose: 1 tab Nicotine (Nicotine Inhaler*) 10 mg INH Q2H PRN PRN Reason: CRAVING Last Admin: 12/17/16 11:16 Dose: 10 mg Nicotine (Nicotine Patch 21 Mg/24 Hr*) 1 patch TRANSDERM DAILY [facility] Last Admin: 12/18/16 09:47 Dose: 1 patch Nicotine Polacrilex (Nicotine Gum*) 2 mg PO Q2H PRN PRN Reason: CRAVING Last Admin: 12/16/16 17:51 Dose: 2 mg Olanzapine (Zyprexa *Odt*) 10 mg PO Q8H PRN PRN Reason: AGITATION/ANXIETY/INSOMNIA Last Admin: 12/16/16 13:44 Dose: 10 mg Olanzapine (Zyprexa Tab*) 15 mg PO BEDTIME [facility] Last Admin: 12/17/16 20:31 Dose: 15 mg Pharmacy Profile Note (Nicotine Patch Removal Note*) 1 note FOLLOW UP 2100 [facility] Last Admin: 12/17/16 20:32 Dose: 1 note Thiamine HCl (Vitamin B-1 Tab*) 100 mg PO DAILY [facility] Last Admin: 12/18/16 09:48 Dose: 100 mg - Discharge Plan Discharge Plan: Drug/Alcohol Rehab
[2016-12-18] MEDS: Nicotine Inhaler* 10 MG AMP INH PRN (14:02)
[2016-12-18] MEDS: cloNIDine TAB* 0.1 MG PO SCH ×2 (14:03→22:18)
--- NOTE | 2016-12-18 14:07 | PN ---
MHU: Group Therapy Note - Service Type Service Type: [id number] Group Psychotherapy - Cognitive Behavioral Group Therapy ( CBT):Patient was attentive and participatory in CBT programming this morning, and remained in good behavioral control. Patient expressed positive insights regarding relevant treatment interventions and goals.
[2016-12-18] MEDS: OLANzapine TAB* 5 MG PO SCH (22:17)
[2016-12-18] MEDS: Nicotine Patch Removal NOTE FOLLOW UP SCH (22:18)
[2016-12-19] MEDS: Thiamine TAB* 100 MG TAB PO SCH (09:59)
[2016-12-19] MEDS: cloNIDine TAB* 0.1 MG PO SCH ×2 (10:00→21:28)
[2016-12-19] MEDS: Lisinopril TAB* 10 MG PO SCH (10:00)
[2016-12-19] MEDS: Gabapentin CAP(*) 300 MG PO SCH ×3 (10:00→21:28)
[2016-12-19] MEDS: Folic Acid TAB* 1 MG DAILY PO SCH (10:00)
[2016-12-19] MEDS: Vitamin THERAPEUTIC TAB PO SCH (10:00)
[2016-12-19] MEDS: Citalopram TAB* 20 MG PO SCH (10:00)
[2016-12-19] MEDS: Nicotine PATCH 21 MG/24 HR* PATCH TRANSDERM SCH (10:02)
[2016-12-19] MEDS: Nicotine Inhaler* 10 MG AMP INH PRN ×3 (10:02→22:17)
[2016-12-19] MEDS: Cyclobenzaprine TAB* 10 MG PO PRN ×2 (10:02→22:04)
--- NOTE | 2016-12-19 11:19 | PN ---
MHU: Group Therapy Note - Service Type Service Type: [id number] Group Psychotherapy - Cognitive Behavioral Group Therapy ( CBT):Patient was attentive and participatory in CBT programming this morning, and remained in good behavioral control. Patient expressed positive insights regarding relevant treatment interventions and goals.
--- NOTE | 2016-12-19 16:18 | PN ---
Subjective - Subjective Service Type: 65147 Hosp care 15 min low complexity Subjective: The patient reports that his anxiety is now much better since starting clonidine therapy. He denies SI, HI, AH or VH and is no longer endorsing bizarre delusions. He is future-oriented, stating that he has to get enrolled in an alcohol-monitoring program in the community as a stipulation of his probation, and also must attend a domestic violence class at [facility]. He is resistant to multiple suggestions that he consider inpatient drug rehab. His plan is to stay temporarily with a sober friend in [place] and then return to his [facility] apartment in [place], [place]. We discuss the risks of relapse in such an environment but he remains steadfast in his refusal of rehab placement, stating that he wants to join a gym in the community and get a job. He is tolerating his medications well and denies side effects. Objective - Appearance Appearance: Well Developed/Nourished Dysmorphic Features: No Hygiene: Normal Grooming: Fairly Well Kept - Behavior Psychomotor Activities: Normal Exhibits Abnormal Movement: No - Attitude and Relatedness Attitude and Relatedness: Cooperative Eye Contact: Good - Speech Quality: Unpressured Latencies: Normal Quantity: Appropriate - Mood Patient's Decription of Mood: "Good" - Affect Observed Affect: Good Affect Consistent with: Euthymia - Thought Process Patient's Thought Process: Coherent Thought Content: No Passive Wish, No Suicidal Planning, No Homicidal Ideation, No Paranoid Ideation - Sensorium Experiencing Hallucinations: No, Sensorium is Clear Type of Hallucinations: Visual: No, Auditory: No, Command: No - Level of Consciousness Level of Consciousness: Alert Orientation: Yes Intact, Yes Orientated to Time, Yes Orientated to Place, Yes Orientated to Person - Impulse Control Impulse Control: Tenuous - Insight and Judgement Insight and Judgement: Fair - Group Participation Particating in Group Activities: Yes - Medication Management Medication Management Adherence: Yes Assessment - Assessment Merits Inpatient Hospitalization: Consolidate Improvements, Pending Safe DC Plan Inpatient DSM-IV Dx: 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 single, white, male with a history of polysubstance abuse, alcoholism and psychosis, as well as affective problems, who was brought by ambulance secondary to suicidal thinking, alcohol abuse and delusional beliefs that he has a chip implanted in his head. Plan - Plan Treatment Plan: Name: YOVANA SHELTON Birthdate: 1980 [id number] The patient is on olanzapine 15mg PO qhs, citalopram 20mg PO qday, clonidine 0.1mg PO BID and gabapentin 600mg PO TID. We will d/c lisinopril, as his BP readings are trending low. He would be appropriate for alcohol rehab placement at this time but is refusing it. Will likely d/c tomorrow to outpatient f/u. Continued Medication Management: Different Medication Medications: Current Medications Acetaminophen (Tylenol Tab*) 650 mg PO Q4H PRN PRN Reason: for pain; or Temp >101 F Last Admin: 12/16/16 17:51 Dose: 650 mg Al Hydrox/Mg Hydrox/Simethicone (Maalox Plus*) 30 ml PO Q4H PRN PRN Reason: INDIGESTION Citalopram Hydrobromide (Celexa Tab*) 20 mg PO DAILY PENDING SALE TO [facility] Last Admin: 12/19/16 10:00 Dose: 20 mg Clonidine HCl (Catapres Tab*) 0.1 mg PO BID PENDING SALE TO [facility] Last Admin: 12/19/16 10:00 Dose: 0.1 mg Cyclobenzaprine HCl (Flexeril Tab*) 10 mg PO BID PRN PRN Reason: PAIN Last Admin: 12/19/16 10:02 Dose: 10 mg Folic Acid (Folvite Tab*) 1 mg PO DAILY PENDING SALE TO [facility] Last Admin: 12/19/16 10:00 Dose: 1 mg Gabapentin (Neurontin Cap(*)) 600 mg PO TID PENDING SALE TO [facility] Last Admin: 12/19/16 13:30 Dose: 600 mg Lisinopril (Prinivil Tab*) 20 mg PO DAILY PENDING SALE TO [facility] Last Admin: 12/19/16 10:00 Dose: 20 mg Multivitamins (Theragran Tab*) 1 tab PO DAILY PENDING SALE TO [facility] Last Admin: 12/19/16 10:00 Dose: 1 tab Nicotine (Nicotine Inhaler*) 10 mg INH Q2H PRN PRN Reason: CRAVING Last Admin: 12/19/16 10:02 Dose: 10 mg Nicotine (Nicotine Patch 21 Mg/24 Hr*) 1 patch TRANSDERM DAILY PENDING SALE TO [facility] Last Admin: 12/19/16 10:02 Dose: 1 patch Nicotine Polacrilex (Nicotine Gum*) 2 mg PO Q2H PRN PRN Reason: CRAVING Last Admin: 12/16/16 17:51 Dose: 2 mg Olanzapine (Zyprexa *Odt*) 10 mg PO Q8H PRN PRN Reason: AGITATION/ANXIETY/INSOMNIA Last Admin: 12/16/16 13:44 Dose: 10 mg Olanzapine (Zyprexa Tab*) 15 mg PO BEDTIME PENDING SALE TO [facility] Last Admin: 12/18/16 22:17 Dose: 15 mg Pharmacy Profile Note (Nicotine Patch Removal Note*) 1 note FOLLOW UP 2100 PENDING SALE TO [facility] Last Admin: 12/18/16 22:18 Dose: Not Given Thiamine HCl (Vitamin B-1 Tab*) 100 mg PO DAILY PENDING SALE TO [facility] Last Admin: 12/19/16 09:59 Dose: 100 mg - Discharge Plan Discharge Plan: Outpatient Follow Up Outpatient Program: [facility]
[2016-12-19] MEDS: Nicotine GUM* 2 MG PO PRN ×2 (18:33→22:17)
[2016-12-19] MEDS: Acetaminophen TAB* 325 MG PO PRN (18:33)
[2016-12-19] MEDS: Nicotine Patch Removal NOTE FOLLOW UP SCH (21:30)
[2016-12-19] MEDS: OLANzapine TAB* 5 MG PO SCH (21:31)
[2016-12-20] MEDS: Cyclobenzaprine TAB* 10 MG PO PRN (08:47)
[2016-12-20] MEDS: Nicotine GUM* 2 MG PO PRN (08:48)
[2016-12-20] MEDS: Nicotine PATCH 21 MG/24 HR* PATCH TRANSDERM SCH (08:48)
[2016-12-20] MEDS: Nicotine Inhaler* 10 MG AMP INH PRN (08:48)
[2016-12-20] MEDS: Gabapentin CAP(*) 300 MG PO SCH (08:49)
[2016-12-20] MEDS: Folic Acid TAB* 1 MG DAILY PO SCH (08:49)
[2016-12-20] MEDS: cloNIDine TAB* 0.1 MG PO SCH (08:49)
[2016-12-20] MEDS: Vitamin THERAPEUTIC TAB PO SCH (08:49)
[2016-12-20] MEDS: Thiamine TAB* 100 MG TAB PO SCH (08:49)
[2016-12-20] MEDS: Citalopram TAB* 20 MG PO SCH (08:49)
[2016-12-20 08:55] VITALS: BP 116/79
--- NOTE | 2016-12-20 11:58 | PN ---
MHU: Group Therapy Note - Service Type Service Type: [id number] Group Psychotherapy - Cognitive Behavioral Group Therapy ( CBT):Patient was attentive and participatory in CBT programming this morning, and remained in good behavioral control. Patient expressed positive insights regarding relevant treatment interventions and goals.
--- NOTE | 2016-12-20 12:33 | DS ---
DISCHARGE SUMMARY: DATE OF ADMISSION: 12/08/16 DATE OF DISCHARGE: 12/20/16 DISCHARGE DIAGNOSES: As follows: [place] I: Alcohol-induced mood disorder, rule out schizoaffective disorder, alcohol use disorder. Axi s II: Deferred. [place] III: Chronic back pain, hypertension, history of tonsillectomy. [place] IV: Sev ere primary support and legal stressors. [place] V: At the time of admission was 30 and at the time of discharge is 60. CONDITION AT THE TIME OF DISCHARGE: Improved. The patient is no longer endorsing psychotic delusio ns. He is neither hearing voices nor seeing things of a hallucinatory nature. His mood is euthymic . His affect is bright. He denies suicidal or homicidal ideations. The patient is agreeable with following up with outpatient treatment at [facility]. It is notable; however, th at he is declining the offer and the encouragement to attend inpatient substance abuse rehab. In fa ct, he is also declining outpatient drug rehab at this time. This is concerning given the central ro le of alcohol in his admitting pathology. Despite this, however, the patient is future oriented jermaine cating that he would like to volunteer at the local [facility]-in center through the mental health associa tion. He also states that he wants to get a gym membership and will stay temporarily with a sober f riend of his in [place], [place]. MENTAL STATUS EXAM: At the time of discharge, the patient is a young white male with thinning elana sh hair and freckles. He is clean, well groomed, wearing a black T-shirt. He smiles and makes good eye contact and it is fairly easy to establish a rapport with him. Speech has a normal rate, tone, and volume. Mood is euthymic with a bright affect. Thought process is linear and goal directed. T hought content is significant for his desire to leave the hospital. He denies suicidal or homicidal ideations. He denies auditory or visual hallucinations. Insight and judgment is somewhat limited d ue to the fact that he is declining the offer of either inpatient or outpatient substance abuse moshe very services. Cognitively, he is awake and alert with what would appear to be an average intellect. DISCHARGE INSTRUCTIONS: To the patient are as follows: A. Medications. He is on: 1. Flexeril 10 mg b.i.d. as a p.r.n. for back pain. 2. He takes olanzapine 10 mg p.o. q.h.s. 3. Celexa 20 mg p.o. daily. 4. Gabapentin 600 mg p.o. t.i.d. 5. Clonidine 0.1 mg p.o. b.i.d. B. Diet is regular. C. Activities: As tolerated. The patient is strongly encouraged to abstain from tobacco products; however, he is declining the continuation of nicotine replacement therapy in the community indicati ng his preference at this time to continue smoking. D. Followup care: The patient will be seen at [facility] within 1 week of disch arge. HOSPITAL COURSE: Part A: Reason for admission: The patient is a 36-year-old single white male with a history of polysubstance abuse, psychotic and affective problems, who was recently discharged fro m our unit on 11/24/16, who now returns to the ER complaining of psychotic symptoms and inability to care for himself. My understanding is that following his most recent discharge early in November, he resumed drinking alcohol fairly quickly, did not attend AA meetings. He reported drinking about a h cong a case of beer per day. He also continued to endorse a delusional belief that he had a chip imp lanted in his head that allowed other people to control his thoughts. He had several delusional bel iefs about being able to read other people's minds. Stressors at the time of admission include a re cent breakup with his girlfriend in [place], being on probation due to domestic violence charges in [place] and a chaotic housing situation in [place] with multiple housemaids who are actively abusing substances. He did deny suicidal or homicidal ideations at the time of admission. Part B: Psychiatric treatment rendered: The patient was admitted to the [facility] where he was placed on q.30-minute checks for his own safety. We resumed his past medications in cluding gabapentin, Wellbutrin, and Flexeril. Due to his psychotic symptoms, we started him on a tr ial of low dose olanzapine at the dose of 5 mg p.o. q.h.s. Because he continued to endorse psychoti c thinking, the olanzapine was gradually titrated to 15 mg nightly, although he did complain of some mild oversedation, so this is being reduced to 10 mg at the time of discharge. The patient did wel l on this, but continued to experience anxiety and depression. For his depression, we increased his Wellbutrin XL from 150 mg to 300 mg daily. This increase corresponded with a marked increased in a nxiety and so, Wellbutrin was discontinued in favor of a trial of Celexa at the dose of 20 mg daily, which he tolerated quite well. His mood did improve and he did not endorse suicidal thoughts throu ghout his hospitalization. For his anxiety and back pain, we gradually titrated his gabapentin from 300 mg 3 times daily to 600 mg 3 times daily. We noted that his blood pressure was elevated and th erefore, a trial of clonidine was started at the dose of 0.1 mg twice daily. This had an additional benefit in terms of helping with his anxiety. Throughout the hospitalization, he showed steady imp rovement. He began attending groups and being more social with peers. One issue that came up was h is heavy use of alcohol in the community. We tried on several occasions to get him to commit to roxy ng transferred to an inpatient drug rehab; however, he not only declined this but also declined subs tance abuse treatment in the community, stating that he has been to rehab multiple times and that st aying sober was more a matter of using the skills that he already had rather than going to further r ehab. I have to say that given the pervasiveness of his alcohol abuse that his refusal of substance abuse treatment does affect his prognosis negatively. I would be more encouraged about his future prospects were he to agree to at least some form of drug rehabilitation, either inpatient or outpati ent. Despite this, he is future oriented. He is talking about getting a gym membership, spending t erlinda with sober friends. His apartment in [place] remains a problem and he states that he will work t owards getting a job, so that he can afford to get an apartment here in [place]. At this time, we se e no further justification for continued inpatient treatment. The patient is agreeable with [facility] followup and that appointment has been established by our social work depart ent. [id number]/[facility] #: [id number]
== END 2016-12-20 12:45 | disposition home or self-care (01) | DRG 897 ==
LOC: ED 09:21 → BSU 14:24
PROVIDERS: ADMIT Psychiatry & Neurology Psychiatry; ATTEND Psychiatry & Neurology Psychiatry
PROC: HZ2ZZZZ Detoxification Services for Substance Abuse Treatment (ICD-10-PCS; principal; 2016-12-08)
DX: F10.14 Alcohol abuse with alcohol-induced mood disorder (principal); I10 Essential (primary) hypertension; Y90.0 Blood alcohol level of less than 20 mg/100 ml; M54.9 Dorsalgia, unspecified; F17.210 Nicotine dependence, cigarettes, uncomplicated; Z81.8 Family history of other mental and behavioral disorders; R44.1 Visual hallucinations
CPT/HCPCS: 36415; 80053; 80061; 80307; 80320; 80329; 81003; 81015; 83036; 84443; 85025; 90853; 99222; 99231; 99238; A9270-GY; G0480

== ENCOUNTER 2016-12-20 18:55 | Inpatient (IN) | payer MEDICARE ==
[2016-12-20] MEDS ORDERED: LORazepam TAB(*) 1 MG PO ONE (19:06)
[2016-12-20 19:31] LABS: Hematocrit 47 % (42-52); Mean Corpuscular HGB Conc 34 g/dl (31-36); Mean Corpuscular Hemoglobin 31 pg (27-31); Mean Corpuscular Volume 92 fL (80-94); Mean Platelet Volume 8 um3 (7.4-10.4); Red Blood Count 5.09 10^6/ul (4.0-5.4); Red Cell Distribution Width 13 % (10.5-15); White Blood Count 10.2 10^3/ul (3.5-10.8)
[2016-12-20 19:34] LABS: Urine Bilirubin Negative (Negative); Urine Glucose Negative (Negative); Urine Nitrite Negative (Negative)
[2016-12-20 19:45] LABS: ALT 33 U/L (7-52); AST 21 U/L (13-39); Albumin 4.5 g/dL (3.2-5.2); Alkaline Phosphatase 75 U/L (34-104); Anion Gap 9 mmol/L (2-11); BUN/Creatinine Ratio 14.4 (8-20); Blood Urea Nitrogen 15 mg/dL (6-24); CO2 Carbon Dioxide 23 mmol/L (22-32); Calcium 9.1 mg/dL (8.6-10.3); Chloride 106 mmol/L (101-111); EGFR African American 103.3 (>60); EGFR Non-African American 80.4 (>60); Globulin 2.5 g/dL (2-4); Glucose 117 mg/dL (70-100); Sodium 138 mmol/L (133-145)
[2016-12-20 19:54] LABS: Benzodiazepine Urine Screen None Detected (None Detect)
[2016-12-20] MEDS ORDERED: OLANzapine TAB* 5 MG PO ONE (20:18)
[2016-12-20] MEDS ORDERED: OLANzapine TAB*ODT* 5 MG PO ONE (20:23)
[2016-12-20] MEDS: Nicotine Inhaler* 10 MG AMP INH PRN (21:00)
[2016-12-20 21:01] LABS: Acetaminophen < 15 mcg/mL; Alcohol 157 mg/dL (<10); Salicylate < 2.50 mg/dL (<30)
[2016-12-20 21:05] LABS: TSH (Thyroid Stimulating Horm) 0.82 mcIU/mL (0.34-5.60)
--- NOTE | 2016-12-21 02:33 | ED ---
Yinka Charlton Alok, scribed for Robert Desai MD on 12/20/16 at 1912 . Psychiatric Complaint - HPI Summary HPI Summary: 36 y/o male MARLYN presents to the ED with c/o anxiety. He states self-harm ideation and explains that he has taken Ativan in the past to relieve these symptoms. Pt states he has been drinking EtOH today. No other PMHx at this time. - History Of Current Complaint Chief Complaint: EDMentalHealth Hx Obtained From: Patient Onset/Duration: Gradual Onset, Lasting Days, Still Present Timing: Constant Severity Initially: Moderate Severity Currently: Moderate Character: Anxious Aggravating Factor(s): Nothing Alleviating Factor(s): Medication - Ativan Associated Signs And Symptoms: Positive: Negative Has Suicidal: Reports: Thoughts - "Self-harm" - Allergies/Home Medications Allergies/Adverse Reactions: Allergies Allergy/AdvReac Type Severity Reaction Status Date / Time Valproic Acid [From Depakote] Allergy Vomiting Verified 12/08/16 09:23 PMH/Surg Hx/FS Hx/Imm Hx Cardiovascular History: Reports: Hx Hypertension Musculoskeletal History: Reports: Hx Back Problems - Lower back, Hx Fibromyalgia Sensory History: Reports: Hx Contacts or Glasses Opthamlomology History: Reports: Hx Contacts or Glasses Psychiatric History: Reports: Hx Anxiety, Hx Depression, Hx Panic Disorder, Hx Post Traumatic Stress Disorder, Hx Inpatient Treatment, Hx Community Mental Health Tx - Rehab, Hx Schizophrenia, Hx Bipolar Disorder, Hx Suicide Attempt, Hx of Violent Episodes Against Others, Hx Substance Abuse Denies: Hx Eating Disorder - Surgical History Surgery Procedure, Year, and Place: tonsilectomy - Family History Known Family History: Positive: Cardiac Disease, Hypertension, Diabetes, Other - [place] - Social History Occupation: Unemployed Alcohol Use: Daily Substance Use Type: Reports: Cocaine, Marijuana, Prescribed, Other Substance Use Comment - Amount & Last Used: cannabinoid postive Smoking Status (MU): Current Every Day Smoker Type: Cigarettes Amount Used/How Often: less than six a day Length of Time of Smoking/Using Tobacco: 20 Years Have You Smoked in the Last Year: Yes Review of Systems Negative: Fever Positive: Anxious All Other Systems Reviewed And Are Negative: Yes Physical Exam Triage Information Reviewed: Yes Vital Signs On Initial Exam: Initial Vital Signs Temp 98.9 F 12/20/16 19:22 Pulse 117 12/20/16 19:22 Resp 18 12/20/16 19:22 BP 146/85 12/20/16 19:22 Pulse Ox 95 12/20/16 19:22 Vital Signs Reviewed: Yes Appearance: Positive: Well-Appearing, No Pain Distress Skin: Positive: Warm, Skin Color Reflects Adequate Perfusion, Dry Head/Face: Positive: Normal Head/Face Inspection Eyes: Positive: EOMI, FREDDY ENT: Positive: Normal ENT inspection Neck: Positive: Supple, Nontender Respiratory/Lung Sounds: Positive: Clear to Auscultation, Breath Sounds Present Cardiovascular: Positive: RRR Abdomen Description: Positive: Nontender, Soft Bowel Sounds: Positive: Present Musculoskeletal: Positive: Normal, Strength/ROM Intact Neurological: Positive: Normal, Sensory/Motor Intact, Alert, Oriented to Person Place, Time Psychiatric: Positive: Affect/Mood Appropriate Diagnostics - Vital Signs Vital Signs Temp Pulse Resp BP Pulse Ox 12/20/16 19:38 22 12/20/16 19:24 98.9 F 117 18 146/85 95 12/20/16 19:22 98.9 F 117 18 146/85 95 - Laboratory Lab Results: Lab Results 12/20/16 12/20/16 12/20/16 Range/Units 19:15 19:15 19:15 WBC 10.2 (3.5-10.8) 10^3/ul RBC 5.09 (4.0-5.4) 10^6/ul Hgb 16.0 (14.0-18.0) g/dl Hct 47 (42-52) % MCV 92 (80-94) fL MCH 31 (27-31) pg MCHC 34 (31-36) g/dl RDW 13 (10.5-15) % Plt Count 233 (150-450) 10^3/ul MPV 8 (7.4-10.4) um3 Neut % (Auto) 69.6 (38-83) % Lymph % (Auto) 25.7 (25-47) % [place] % (Auto) 3.4 (1-9) % Eos % (Auto) 0.8 (0-6) % Baso % (Auto) 0.5 (0-2) % Absolute Neuts (auto) 7.1 (1.5-7.7) 10^3/ul Absolute Lymphs (auto) 2.6 (1.0-4.8) 10^3/ul Absolute Monos (auto) 0.3 (0-0.8) 10^3/ul Absolute Eos (auto) 0.1 (0-0.6) 10^3/ul Absolute Basos (auto) 0 (0-0.2) 10^3/ul Absolute Nucleated RBC 0.01 10^3/ul Nucleated RBC % 0.1 Sodium 138 (133-145) mmol/L Potassium 4.0 (3.5-5.0) mmol/L Chloride 106 (101-111) mmol/L Carbon Dioxide 23 (22-32) mmol/L Anion Gap 9 (2-11) mmol/L BUN 15 (6-24) mg/dL Creatinine 1.04 (0.67-1.17) mg/dL Est GFR ( Amer) 103.3 (>60) Est GFR (Non-Af Amer) 80.4 (>60) BUN/Creatinine Ratio 14.4 (8-20) Glucose 117 H (70-100) mg/dL Calcium 9.1 (8.6-10.3) mg/dL Total Bilirubin 0.20 (0.2-1.0) mg/dL AST 21 (13-39) U/L ALT 33 (7-52) U/L Alkaline Phosphatase 75 (34-104) U/L Total Protein 7.0 (6.4-8.9) g/dL Albumin 4.5 (3.2-5.2) g/dL Globulin 2.5 (2-4) g/dL Albumin/Globulin Ratio 1.8 (1-3) TSH 0.82 (0.34-5.60) mcIU/mL Urine Color Straw Urine Appearance Clear Urine pH 5.0 (5-9) Ur Specific [place] 1.006 L (1.010-1.030) Urine Protein Negative (Negative) Urine Ketones Negative (Negative) Urine Blood Negative (Negative) Urine Nitrate Negative (Negative) Urine Bilirubin Negative (Negative) Urine Urobilinogen Negative (Negative) Ur Leukocyte Esterase Negative (Negative) Urine Glucose Negative (Negative) Salicylates < 2.50 (<30) mg/dL Urine Opiates Screen (None Detect) Acetaminophen < 15 mcg/mL Ur Barbiturates Screen (None Detect) Ur Phencyclidine Scrn (None Detect) Ur Amphetamines Screen (None Detect) U Benzodiazepines Scrn (None Detect) Urine Cocaine Screen (None Detect) U Cannabinoids Screen (None Detect) Serum Alcohol 157 H (<10) mg/dL 12/20/16 Range/Units 19:15 WBC (3.5-10.8) 10^3/ul RBC (4.0-5.4) 10^6/ul Hgb (14.0-18.0) g/dl Hct (42-52) % MCV (80-94) fL MCH (27-31) pg MCHC (31-36) g/dl RDW (10.5-15) % Plt Count (150-450) 10^3/ul MPV (7.4-10.4) um3 Neut % (Auto) (38-83) % Lymph % (Auto) (25-47) % [place] % (Auto) (1-9) % Eos % (Auto) (0-6) % Baso % (Auto) (0-2) % Absolute Neuts (auto) (1.5-7.7) 10^3/ul Absolute Lymphs (auto) (1.0-4.8) 10^3/ul Absolute Monos (auto) (0-0.8) 10^3/ul Absolute Eos (auto) (0-0.6) 10^3/ul Absolute Basos (auto) (0-0.2) 10^3/ul Absolute Nucleated RBC 10^3/ul Nucleated RBC % Sodium (133-145) mmol/L Potassium (3.5-5.0) mmol/L Chloride (101-111) mmol/L Carbon Dioxide (22-32) mmol/L Anion Gap (2-11) mmol/L BUN (6-24) mg/dL Creatinine (0.67-1.17) mg/dL Est GFR ( Amer) (>60) Est GFR (Non-Af Amer) (>60) BUN/Creatinine Ratio (8-20) Glucose (70-100) mg/dL Calcium (8.6-10.3) mg/dL Total Bilirubin (0.2-1.0) mg/dL AST (13-39) U/L ALT (7-52) U/L Alkaline Phosphatase (34-104) U/L Total Protein (6.4-8.9) g/dL Albumin (3.2-5.2) g/dL Globulin (2-4) g/dL Albumin/Globulin Ratio (1-3) TSH (0.34-5.60) mcIU/mL Urine Color Urine Appearance Urine pH (5-9) Ur Specific [place] (1.010-1.030) Urine Protein (Negative) Urine Ketones (Negative) Urine Blood (Negative) Urine Nitrate (Negative) Urine Bilirubin (Negative) Urine Urobilinogen (Negative) Ur Leukocyte Esterase (Negative) Urine Glucose (Negative) Salicylates (<30) mg/dL Urine Opiates Screen None detected (None Detect) Acetaminophen mcg/mL Ur Barbiturates Screen None detected (None Detect) Ur Phencyclidine Scrn None detected (None Detect) Ur Amphetamines Screen None detected (None Detect) U Benzodiazepines Scrn None detected (None Detect) Urine Cocaine Screen None detected (None Detect) U Cannabinoids Screen None detected (None Detect) Serum Alcohol (<10) mg/dL Result Diagrams: 12/20/16 19:15 12/20/16 19:15 Lab Statement: Any lab studies that have been ordered have been reviewed, and results considered in the medical decision making process. Course/Dx - Course Assessment/Plan: ADMIT TO U STABLE - Differential Dx/Clinical Impression Provider Diagnosis: Mental health problem Discharge - Discharge Plan Condition: Stable Disposition: ADMITTED TO [facility] Referrals: No Primary Care Phys,NOPCP [Primary Care Provider] - The documentation as recorded by the Yinka han Alok accurately reflects the service I personally performed and the decisions made by , Robert Desai MD.
[2016-12-21] MEDS ORDERED: Mouth Piece, Nicotine* 1 EACH CARTRIDGE INH SCH (02:40)
[2016-12-21] MEDS ORDERED: Acetaminophen TAB* 325 MG PO PRN (02:40)
[2016-12-21] MEDS ORDERED: Al Hydrox/Mg Hydrox/Simet LIQ* 30 ML UDC PO PRN (02:40)
[2016-12-21] MEDS ORDERED: Gabapentin CAP(*) 300 MG PO SCH (09:00)
[2016-12-21] MEDS: Citalopram TAB* 20 MG PO SCH (10:26)
[2016-12-21] MEDS: cloNIDine TAB* 0.1 MG PO SCH ×2 (10:26→21:35)
[2016-12-21] MEDS: Vitamin THERAPEUTIC TAB PO SCH (10:26)
[2016-12-21] MEDS: Nicotine GUM* 2 MG PO PRN ×2 (10:28→13:08)
[2016-12-21] MEDS: Nicotine Inhaler* 10 MG AMP INH PRN ×2 (10:28→13:08)
[2016-12-21] MEDS: Cyclobenzaprine TAB* 10 MG PO PRN (12:10)
--- NOTE | 2016-12-21 12:21 | HP ---
PSYCHIATRIC HISTORY AND PHYSICAL: DATE OF ADMISSION: 12/21/16 JUSTIFICATION FOR ADMISSION: The patient is in need of 24-hour supervision and treatment secondary to suicidal ideations. CHIEF COMPLAINT: "I now know that I really need to go to rehab." HISTORY OF PRESENT ILLNESS: The patient is a 36-year-old single white male with a history of alcoho l abuse as well as psychotic and affective problems who was just discharged from my service yesterda y to outpatient treatment who returned approximately 6 hours after his discharge with a blood alcoho l level of 157, stating that he was suicidal and needed to come back into the hospital. The patient had had a 10-day hospital course in which we had stabilized him on antidepressant and antipsychotic medications and we had strongly encouraged him to consider inpatient drug rehab; however, he had be en steadily resistant towards this. He now reports that when he left the hospital, he went straight home to his apartment in [place], [place], and got approximately four 24-ounce cans of beer and con sumed them one right after the other. He started feeling bad about himself, suicidal, stating that his life is a "sh-- show" and that he cannot be trusted to do the right thing. At that point, he re alized that we were right in recommending rehab, that his substance abuse issues are not under contr ol and he decided at that time to return to the hospital. For a complete history on this patient, p ilia refer to the psychiatric H and P dictated by Dr. Kervin Magdaleno on 12/09/16. MENTAL STATUS EXAM: The patient is a young white male with thinning reddish hair. He has got pale s kin freckles. He is wearing spectacles. He is clean and casually groomed in a black T-shirt and sw eat pants. He is calm, cooperative, easy to establish a rapport with. Mood is anxious with an anxi ous affect. Thought process is linear and goal directed. Thought content is significant for his de sire to get into rehab. At this time, he is denying suicidal or homicidal ideations. He denies aud itory or visual hallucinations. He has no evidence of paranoid or delusional thinking. Insight and judgment appears to be fair given his willingness at this point to go to rehab. Cognitively, he is awake and alert with what would appear to be an average intellect. DIAGNOSES: [place] I: Alcohol-induced mood disorder, rule out schizoaffective disorder; polysubstance abuse by history; alcohol use disorder. [place] II: Deferred. [place] III: Chronic back pain, hypertensi on. [place] IV: Severe primary support and housing stressors. [place] V: At this time is 44. IMPRESSION: The patient is a 36-year-old single white male with a history of alcohol-induced mood d isorder as well as psychotic issues and chronic alcoholism, who returns to the hospital on the very same day of his discharge, complaining of new onset of suicidal thinking in the context of quick rel apse on alcohol. It is clear at this point that he needs inpatient rehab. We have already referred him to the [facility] in [place], [place], and they have accepted him for transfer tomorrow, which the patient is agreeable with. PLAN: The patient is admitted to the adult behavioral health unit and placed on the [facility] protocol as well as q.30 minute checks for his own safety. We have resumed all of his medications including cl onidine 0.1 mg b.i.d., gabapentin 600 mg p.o. t.i.d., citalopram 20 mg p.o. daily, Flexeril 10 mg p. o. b.i.d. as a p.r.n. for pain and Zyprexa 10 mg p.o. q.h.s. He is already accepted for transfer to the [facility] on the grounds of [facility] in [place], [place], and he is pendin g transfer to that facility at 10 o'clock in the morning tomorrow. [id number]/[facility] #: [id number]
[2016-12-21] MEDS: Gabapentin CAP(*) 300 MG PO SCH ×2 (15:48→21:35)
[2016-12-21] MEDS ORDERED: OLANzapine TAB* 5 MG PO SCH (21:00)
[2016-12-21] MEDS: OLANzapine TAB* 5 MG PO SCH (21:36)
[2016-12-22] MEDS: Vitamin THERAPEUTIC TAB PO SCH (08:38)
[2016-12-22] MEDS: cloNIDine TAB* 0.1 MG PO SCH ×2 (08:38→21:14)
[2016-12-22] MEDS: Citalopram TAB* 20 MG PO SCH (08:39)
[2016-12-22] MEDS: Gabapentin CAP(*) 300 MG PO SCH (08:39)
[2016-12-22] MEDS: Cyclobenzaprine TAB* 10 MG PO PRN ×2 (08:39→21:13)
[2016-12-22] MEDS: Nicotine Inhaler* 10 MG AMP INH PRN ×5 (08:40→21:12)
[2016-12-22] MEDS: Nicotine GUM* 2 MG PO PRN ×5 (08:40→21:15)
--- NOTE | 2016-12-22 12:28 | PN ---
Subjective - Subjective Service Type: [id number] Hosp care 25 min moderate complexity Subjective: Ranjit was set to be transferred this morning to the [facility] inpatient rehab, yet changed his mind. When met this AM in the consult room he is fidgety and will not make eye contact with me. "Yeah, I've got some friends. They're sober. They're coming to pick me up. It was a mistake coming back here. You' re not going to see me again. I promise. Truth be told I"m probably going back to [place]." Ranjit is informed that I don't believe this represents a safe discharge plan and that my intention is to convert him to involuntary status. I invite his friends to come in for a family meeting early next week and perhaps we can discuss d/c planning then. He is disappointed and states "Then I want to be medicated properly. I didn't drink on the Klonopin!" He is informed that his substance abuse issues make benzo's out of the question, although I agree to increase his gabapentin to 800mg PO TID. The patient is upset but does not act out. Objective - Appearance Appearance: Well Developed/Nourished Dysmorphic Features: No Hygiene: Normal Grooming: Fairly Well Kept - Behavior Psychomotor Activities: Abnormal-Increased Exhibits Abnormal Movement: No - Attitude and Relatedness Attitude and Relatedness: Superficially Cooperative Eye Contact: Poor - Speech Quality: Unpressured Latencies: Normal Quantity: Appropriate - Mood Patient's Decription of Mood: "Fine" - Affect Observed Affect: Tense Affect Consistent with: Dysphoria - Thought Process Patient's Thought Process: Goal Directed Thought Content: No Passive Wish, No Suicidal Planning, No Homicidal Ideation, No Paranoid Ideation - Sensorium Experiencing Hallucinations: No, Sensorium is Clear Type of Hallucinations: Visual: No, Auditory: No, Command: No - Level of Consciousness Level of Consciousness: Alert Orientation: Yes Intact, Yes Orientated to Time, Yes Orientated to Place, Yes Orientated to Person - Impulse Control Impulse Control: Poor - Insight and Judgement Insight and Judgement: Impaired - Group Participation Particating in Group Activities: Yes - Medication Management Medication Management Adherence: Yes Assessment - Assessment Merits Inpatient Hospitalization: For Immediate Safety, For Stabilization 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 single, white male with a history of alcohol and other substance misuse disorders, psychotic and affective problems, readmitted to the hospital on the same day as his discharge due to immediate relapse on alcohol and return of suicidal thoughts to cut his throat. The patient initially agreed to inpatient rehab transfer but has changed his mind and is insisting on discharge. He is pending legal conversion to [facility] status. Plan - Plan Treatment Plan: Name: RANJIT SHELTON Birthdate: 1980 [id number] The patient is seeking discharge and is at significant risk to relapse on alcohol and become a danger to himself. We will convert his legal status to involuntary via a 2PC. The patient is on a regimen of olanzapine, clonidine, citalopram and gabapentin. As per patient's wishes, we will increase gabapentin to 800mg PO TID. Will reassess after the weekend to see if he would reconsider rehab placement. If he is going to leave with sober friends we would have to meet them in person prior to discharge. The patient's prognosis is not looking good secondary to poor insight into substance abuse issues. Continued Medication Management: Continue Outpt Medication Medications: Current Medications Acetaminophen (Tylenol Tab*) 650 mg PO Q4H PRN PRN Reason: PAIN or TEMP > 101 F Al Hydrox/Mg Hydrox/Simethicone (Maalox Plus*) 30 ml PO Q4H PRN PRN Reason: INDIGESTION Citalopram Hydrobromide (Celexa Tab*) 20 mg PO DAILY [facility] Last Admin: 12/22/16 08:39 Dose: 20 mg Clonidine HCl (Catapres Tab*) 0.1 mg PO BID [facility] Last Admin: 12/22/16 08:38 Dose: 0.1 mg Cyclobenzaprine HCl (Flexeril Tab*) 10 mg PO BID PRN PRN Reason: PAIN Last Admin: 12/22/16 08:39 Dose: 10 mg Device (Nicotine Mouth Piece*) 1 each INH .CARTRIDGE [facility] Multivitamins (Theragran Tab*) 1 tab PO DAILY [facility] Last Admin: 12/22/16 08:38 Dose: 1 tab Nicotine (Nicotine Inhaler*) 10 mg INH Q2H PRN PRN Reason: CRAVING Last Admin: 12/22/16 08:40 Dose: 10 mg Nicotine (Nicotine Inhaler*) 10 mg INH Q2H PRN PRN Reason: CRAVING Nicotine Polacrilex (Nicotine Gum*) 2 mg PO Q2H PRN PRN Reason: CRAVING Last Admin: 12/22/16 08:40 Dose: 2 mg Olanzapine (Zyprexa Tab*) 10 mg PO BEDTIME [facility] Last Admin: 12/21/16 21:36 Dose: 10 mg - Discharge Plan Discharge Plan: Inpatient Hospitalization
[2016-12-22] MEDS: Gabapentin CAP(*) 400 MG PO SCH ×2 (14:09→21:14)
[2016-12-22] MEDS: OLANzapine TAB* 5 MG PO SCH (21:15)
[2016-12-23] MEDS: Gabapentin CAP(*) 400 MG PO SCH ×3 (08:35→21:14)
[2016-12-23] MEDS: Citalopram TAB* 20 MG PO SCH (08:37)
[2016-12-23] MEDS: cloNIDine TAB* 0.1 MG PO SCH ×2 (08:37→21:14)
[2016-12-23] MEDS: Cyclobenzaprine TAB* 10 MG PO PRN ×2 (08:37→21:14)
[2016-12-23] MEDS: Vitamin THERAPEUTIC TAB PO SCH (08:37)
[2016-12-23] MEDS: Nicotine Inhaler* 10 MG AMP INH PRN ×4 (08:37→21:13)
[2016-12-23] MEDS: Nicotine GUM* 2 MG PO PRN ×4 (08:38→21:17)
[2016-12-23] MEDS: OLANzapine TAB* 5 MG PO SCH (21:14)
[2016-12-24] MEDS: cloNIDine TAB* 0.1 MG PO SCH ×2 (09:01→21:57)
[2016-12-24] MEDS: Citalopram TAB* 20 MG PO SCH (09:01)
[2016-12-24] MEDS: Nicotine Inhaler* 10 MG AMP INH PRN ×4 (09:01→19:54)
[2016-12-24] MEDS: Gabapentin CAP(*) 400 MG PO SCH ×3 (09:01→21:56)
[2016-12-24] MEDS: Nicotine GUM* 2 MG PO PRN ×3 (09:01→19:54)
[2016-12-24] MEDS: Vitamin THERAPEUTIC TAB PO SCH (09:01)
--- NOTE | 2016-12-24 12:12 | PN ---
Subjective - Subjective Service Type: [id number] Hosp care 15 min low complexity Subjective: I had the opportunity to meet with Ranjit today for follow-up visit. Ranjit is reporting difficulty with anxiety which he reports as a 7 out of 10 in which 10 represents the most anxious he has ever felt. He is reporting good sleep, and appetite, and further reports that his energy is increasing. He is requesting 30minute checks which would enable him to use the comfort room, as he stated that he wanted to play guitar. Nursing staff reports that he is doing well, no concerns noted. Objective - Appearance Dysmorphic Features: No Hygiene: Normal Grooming: Well Kept - Behavior Psychomotor Activities: Normal Exhibits Abnormal Movement: No - Attitude and Relatedness Attitude and Relatedness: Cooperative Eye Contact: Fair - Speech Quality: Unpressured Latencies: Normal Quantity: Appropriate - Mood Patient's Decription of Mood: "Okay" - Affect Observed Affect: Constricted - Thought Process Patient's Thought Process: Coherent Thought Content: No Passive Wish, No Suicidal Planning, No Homicidal Ideation, No Paranoid Ideation - Sensorium Experiencing Hallucinations: No, Sensorium is Clear Type of Hallucinations: Visual: No, Auditory: No, Command: No - Level of Consciousness Orientation: No Intact, No Orientated to Time, No Orientated to Place, No Orientated to Person - Impulse Control Impulse Control: Intact - Insight and Judgement Insight and Judgement: Fair Assessment - Assessment 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 Plan - Plan Treatment Plan: Name: RANJIT SHELTON Birthdate: 1980 [id number] Medications: Current Medications Acetaminophen (Tylenol Tab*) 650 mg PO Q4H PRN PRN Reason: PAIN or TEMP > 101 F Al Hydrox/Mg Hydrox/Simethicone (Maalox Plus*) 30 ml PO Q4H PRN PRN Reason: INDIGESTION Citalopram Hydrobromide (Celexa Tab*) 20 mg PO DAILY [facility] Last Admin: 12/24/16 09:01 Dose: 20 mg Clonidine HCl (Catapres Tab*) 0.1 mg PO BID [facility] Last Admin: 12/24/16 09:01 Dose: 0.1 mg Cyclobenzaprine HCl (Flexeril Tab*) 10 mg PO BID PRN PRN Reason: PAIN Last Admin: 12/23/16 21:14 Dose: 10 mg Device (Nicotine Mouth Piece*) 1 each INH .CARTRIDGE [facility] Gabapentin (Neurontin Cap(*)) 800 mg PO TID [facility] Last Admin: 12/24/16 09:01 Dose: 800 mg Multivitamins (Theragran Tab*) 1 tab PO DAILY [facility] Last Admin: 12/24/16 09:01 Dose: 1 tab Nicotine (Nicotine Inhaler*) 10 mg INH Q2H PRN PRN Reason: CRAVING Last Admin: 12/24/16 11:06 Dose: 10 mg Nicotine (Nicotine Inhaler*) 10 mg INH Q2H PRN PRN Reason: CRAVING Nicotine Polacrilex (Nicotine Gum*) 2 mg PO Q2H PRN PRN Reason: CRAVING Last Admin: 12/24/16 09:01 Dose: 2 mg Olanzapine (Zyprexa Tab*) 10 mg PO BEDTIME [facility] Last Admin: 12/23/16 21:14 Dose: 10 mg
[2016-12-24] MEDS: OLANzapine TAB* 5 MG PO SCH (21:57)
[2016-12-24] MEDS: Cyclobenzaprine TAB* 10 MG PO PRN (21:59)
[2016-12-25] MEDS: Nicotine Inhaler* 10 MG AMP INH PRN ×4 (08:51→20:06)
[2016-12-25] MEDS: Vitamin THERAPEUTIC TAB PO SCH (08:52)
[2016-12-25] MEDS: Citalopram TAB* 20 MG PO SCH (08:52)
[2016-12-25] MEDS: cloNIDine TAB* 0.1 MG PO SCH ×2 (08:52→20:03)
[2016-12-25] MEDS: Gabapentin CAP(*) 400 MG PO SCH ×3 (08:52→20:03)
[2016-12-25] MEDS: Nicotine GUM* 2 MG PO PRN ×4 (08:54→20:06)
[2016-12-25] MEDS: Cyclobenzaprine TAB* 10 MG PO PRN ×2 (08:54→20:06)
--- NOTE | 2016-12-25 11:48 | PN ---
Subjective - Subjective Service Type: [id number] Hosp care 15 min low complexity Subjective: Ranjit insisted we are causing him to lose his housing by retaining him here. He maid a threat to break the doors due to his anxiety, and asked for Valium, dismissing limits set around controlled medicines, and citing prior benzo. administration here. He was clearly bargaining in an aggressive med. seeking pattern, suggesting he would cooperate and not be disruptive if medicated as he desires. I explored options including antihistamines and thorazine and he was broadly dismissive. Objective - Appearance Appearance: Healthy Appearing Hygiene: Normal Grooming: Well Kept - Behavior Psychomotor Activities: Normal - Attitude and Relatedness Attitude and Relatedness: Manipulative Eye Contact: Good - Speech Quality: Unpressured Latencies: Normal Quantity: Appropriate - Mood Patient's Decription of Mood: "Angry" - Affect Observed Affect: Labile Affect Consistent with: Dysphoria - Thought Process Patient's Thought Process: Coherent Thought Content: No Passive Wish, No Suicidal Planning, No Homicidal Ideation, No Paranoid Ideation - Sensorium Experiencing Hallucinations: No, Sensorium is Clear - Level of Consciousness Level of Consciousness: Alert - Impulse Control Impulse Control: Tenuous - Insight and Judgement Insight and Judgement: Poor Assessment - Assessment Merits Inpatient Hospitalization: For Immediate Safety, For Stabilization, To Initiate Treatment, For Ongoing Evaluation, For Discharge Planning, Pending Safe DC Plan 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 He was readmitted within a day of his last psychiatric discharge, having relapses on alcohol and expressed resumed suicidal ideation. Is poorly engaged clinically, dismissing concerns. Is in basic behavioral control, safe on checks, denying ongoing suicidal thoughts. Appears to be in a maladaptive medication seeking stance. Will allow a dose of Valium but this should not become a standing routine. Medmgt. involves citalopram, clonidine, Zyprexa. Plan - Plan Treatment Plan: Name: RANJIT SHELTON Birthdate: 1980 [id number] Continued Medication Management: Continue Outpt Medication Medications: Current Medications Acetaminophen (Tylenol Tab*) 650 mg PO Q4H PRN PRN Reason: PAIN or TEMP > 101 F Al Hydrox/Mg Hydrox/Simethicone (Maalox Plus*) 30 ml PO Q4H PRN PRN Reason: INDIGESTION Citalopram Hydrobromide (Celexa Tab*) 20 mg PO DAILY [facility] Last Admin: 12/25/16 08:52 Dose: 20 mg Clonidine HCl (Catapres Tab*) 0.1 mg PO BID [facility] Last Admin: 12/25/16 08:52 Dose: 0.1 mg Cyclobenzaprine HCl (Flexeril Tab*) 10 mg PO BID PRN PRN Reason: PAIN Last Admin: 12/25/16 08:54 Dose: 10 mg Device (Nicotine Mouth Piece*) 1 each INH .CARTRIDGE [facility] Gabapentin (Neurontin Cap(*)) 800 mg PO TID [facility] Last Admin: 12/25/16 08:52 Dose: 800 mg Multivitamins (Theragran Tab*) 1 tab PO DAILY [facility] Last Admin: 12/25/16 08:52 Dose: 1 tab Nicotine (Nicotine Inhaler*) 10 mg INH Q2H PRN PRN Reason: CRAVING Last Admin: 12/25/16 08:51 Dose: 10 mg Nicotine (Nicotine Inhaler*) 10 mg INH Q2H PRN PRN Reason: CRAVING Nicotine Polacrilex (Nicotine Gum*) 2 mg PO Q2H PRN PRN Reason: CRAVING Last Admin: 12/25/16 08:54 Dose: 2 mg Olanzapine (Zyprexa Tab*) 10 mg PO BEDTIME [facility] Last Admin: 12/24/16 21:57 Dose: 10 mg - Discharge Plan Discharge Plan: Drug/Alcohol Rehab
[2016-12-25] MEDS ORDERED: Diazepam TAB(*) 5 MG PO ONE (11:53)
[2016-12-25] MEDS ORDERED: Diazepam TAB(*) 5 MG ONE (11:58)
--- NOTE | 2016-12-25 13:24 | PN ---
MHU: Group Therapy Note - Service Type Service Type: [id number] Group Psychotherapy - Cognitive Behavioral Group Therapy ( CBT):Patient was attentive and participatory in CBT programming this morning, and remained in good behavioral control. Patient expressed positive insights regarding relevant treatment interventions and goals.
[2016-12-25] MEDS: OLANzapine TAB* 5 MG PO SCH (20:04)
[2016-12-26 07:51] VITALS: BP 104/69
[2016-12-26] MEDS: cloNIDine TAB* 0.1 MG PO SCH (08:11)
[2016-12-26] MEDS: Vitamin THERAPEUTIC TAB PO SCH (08:11)
[2016-12-26] MEDS: Gabapentin CAP(*) 400 MG PO SCH ×2 (08:12→13:48)
[2016-12-26] MEDS: Citalopram TAB* 20 MG PO SCH (08:12)
[2016-12-26] MEDS: Nicotine Inhaler* 10 MG AMP INH PRN ×3 (08:12→13:49)
[2016-12-26] MEDS: Nicotine GUM* 2 MG PO PRN ×3 (08:13→13:49)
--- NOTE | 2016-12-26 11:48 | PN ---
MHU: Group Therapy Note - Service Type Service Type: [id number] Group Psychotherapy - Cognitive Behavioral Group Therapy ( CBT):Patient was attentive and participatory in CBT programming this morning, and remained in good behavioral control. Patient expressed positive insights regarding relevant treatment interventions and goals.
--- NOTE | 2016-12-27 11:51 | DS ---
DISCHARGE SUMMARY: DATE OF ADMISSION: 12/21/16 DATE OF DISCHARGE: 12/26/16 DISCHARGE DIAGNOSES: [place] I: Alcohol-induced mood disorder; rule out schizoaffective disorder; ave ysubstance abuse by history; alcohol use disorder. [place] II: Deferred. [place] III: Chronic back pain, hypertension. [place] IV: Severe primary support and housing stressors. [place] V: At the time of admis sammi was 44 and at the time of discharge is 59. CONDITION AT THE TIME OF DISCHARGE: Stable. The patient is calm, cooperative. He displays no evid ence of psychosis. He has an euthymic mood with a full affect. He has been cooperative with milieu treatment. The patient strongly denies suicidal or homicidal ideations. One cause for concern, esdras francois, is that he continues to refuse transfer to an inpatient substance abuse rehab. He is future oriented, however, stating that he just got his monthly check from Disability and his plan is to get a gym membership at a local health club and to spend time with sober friends. He is willing to fol low up with both primary care as well as outpatient substance abuse services in the community. MENTAL STATUS EXAM AT THE TIME OF DISCHARGE: The patient is a young white male with thinning reddis h hair. He has pale skin and freckles. He is wearing spectacles. He is clean and well groomed wit h a checkered flannel shirt and jeans. He is calm, cooperative, easy to establish a rapport with. M ood is euthymic with a full affect. Thought process is linear and goal directed. Thought content i s significant for his desire to get out of the hospital and to follow through with rehab on an outpa tient basis. He denies suicidal or homicidal ideations. He denies auditory or visual hallucination s. Insight and judgment are somewhat limited given his refusal for inpatient rehab. He has no evid ence of psychotic thought process. Cognitively, he is awake and alert with what would appear to be an average intellect. DISCHARGE INSTRUCTIONS: A. Medications: The patient is on: 1. Citalopram 20 mg p.o. daily. 2. Gabapentin 800 mg p.o. t.i.d. 3. Clonidine 0.1 mg p.o. b.i.d. 4. He is taking olanzapine 10 mg p.o. q.h.s. 5. Flexeril 10 mg p.o. b.i.d. as a p.r.n. for pain. 6. He is also being discharged on a nicotine patch 21 mg transdermally daily. B. Diet is regular. C. Activities: As tolerated. The patient is strongly encouraged to abstain from tobacco products and he is in agreement with this. He has been offered and has accepted nicotine replacement therapy on an ongoing basis in the community. D. Followup care: The patient will be following up tomorrow with Dr. Hernandez, that appointment i s for tomorrow, December 27, at 12:30 p.m. In addition, he has an intake at [facility], ich will be tomorrow at 2:30 p.m. that is also December 27. HOSPITAL COURSE: Part-A. Reason for admission: The patient is a 36-year-old single white male wit h a history of alcohol abuse as well as psychotic and affective problems, who is just discharged fro [facility] service on 12/20/16, who returned approximately 6 hours after discharge with blood alcohol leve l of 157 stating that he was suicidal and needed to come back into the hospital. Prior to that, the patient had just finished a 10-day inpatient psychiatric treatment course in which we had stabilize d him on antidepressant and antipsychotic medications and we had strongly encouraged him to consider inpatient drug rehab. However, he had been steadfastly resistant towards this. He now reports josie t when he left the hospital, he went straight home to his apartment in [place], [place], and bought four 24-ounce cans of beer and consumed them one right after the other. He started feeling bad abou t himself, suicidal, stating that his life is a "shitshow" and that he cannot be trusted to do the r ight thing. At that point, he states that he realized that we are right in recommending rehab and t hat his substance abuse issues were not under control and he decided to self-refer himself back to [facility]. Part-B. Psychiatric treatment rendered: The patient was admitted back to the hospital on the 20 of December and he was slated to go to rehab the following day at [facility], which is a program in [place], [place]. Unfortunately, he after initially agreeing to this, changed his mind and decided not t o go to rehab. From there, we switched his status from voluntary to involuntary in order to keep hi m over the weekends to allow him a chance to rethink this. We did make one significant med change a nd that his gabapentin was increased from 600 to 800 mg 3 times daily. Unfortunately, the patient t ook a long weekend to think about his options but continued to deny his need for inpatient substance abuse treatment indicating that he would be willing to go to outpatient substance abuse followup at the [facility] here in [place]. We could not dissuade him from this course of action and ultimate ly we felt obligated to discharge him. It should be noted that he showed no evidence of either thou ghts or behaviors of harm towards himself during his hospitalization. He was calm and cooperative t hroughout and at this time feels that he is in a better position to be successful following this dis charge. He is denying any thoughts of hurting himself or others and states that he has several frie nds in the area that he wants to get a gym membership with and spend time and be away from drugs and alcohol. His prescriptions have all been called into the [facility] here in [place] and we are calling a taxi to come pick him up from the hospital. [id number]/[facility] #: [id number]
== END 2016-12-26 18:15 | disposition home or self-care (01) | DRG 897 ==
LOC: ED 18:55 → BSU 12-21 04:45
PROVIDERS: ADMIT Psychiatry & Neurology Psychiatry; ATTEND Psychiatry & Neurology Psychiatry
DX: F10.14 Alcohol abuse with alcohol-induced mood disorder (principal); I10 Essential (primary) hypertension; Y90.6 Blood alcohol level of 120-199 mg/100 ml; M54.89 Other dorsalgia; Z87.898 Personal history of other specified conditions
CPT/HCPCS: 36415; 80053; 80307; 80320; 80329; 81003; 84443; 85025; 90853; 99222; 99231; 99232; 99238; A9270-GY; G0480

== ENCOUNTER 2017-01-19 23:29 | Inpatient (IN) | payer MEDICARE ==
--- NOTE | 2017-01-20 02:27 | ED ---
Psychiatric Complaint - HPI Summary HPI Summary: Patient is brought in by the police after stating he is suicidal. He has severe ETOH on board and is uncooperative with my inquiry. I will wait for him to become more sober. He appears stable in no acute distress. - History Of Current Complaint Chief Complaint: EDMentalHealth Time Seen by Provider: 01/20/17 00:42 Hx Obtained From: Medical Records Hx From Patient Unobtainable Due To: Altered Mental Status - ETOH Onset/Duration: Gradual Onset Timing: Constant Severity Initially: Severe Severity Currently: Severe Aggravating Factor(s): Nothing Alleviating Factor(s): Nothing Associated Signs And Symptoms: Positive: Negative Related History: Positive For: Prior Psychiatric Issues Has Suicidal: Reports: Thoughts - Allergies/Home Medications Allergies/Adverse Reactions: Allergies Allergy/AdvReac Type Severity Reaction Status Date / Time Valproic Acid [From Depakote] Allergy Vomiting Verified 01/20/17 00:22 PMH/Surg Hx/FS Hx/Imm Hx Cardiovascular History: Reports: Hx Hypertension Musculoskeletal History: Reports: Hx Back Problems - Lower back, Hx Fibromyalgia Sensory History: Reports: Hx Contacts or Glasses - Glasses Denies: Hx Hearing Aid Opthamlomology History: Reports: Hx Contacts or Glasses - Glasses Psychiatric History: Reports: Hx Anxiety, Hx Depression, Hx Panic Disorder, Hx Post Traumatic Stress Disorder, Hx Inpatient Treatment, Hx Community Mental Health Tx - Rehab, Hx Schizophrenia, Hx Bipolar Disorder, Hx Suicide Attempt, Hx of Violent Episodes Against Others, Hx Substance Abuse Denies: Hx Eating Disorder - Surgical History Surgery Procedure, Year, and Place: tonsilectomy. tubes in ears Infectious Disease History: Unable to Obtain/Confirm Infectious Disease History: Denies: Traveled Outside the [place] in Last 30 Days - Family History Known Family History: Positive: Cardiac Disease, Hypertension, Diabetes, Other - [place] - Social History Occupation: Unemployed Lives: Alone Alcohol Use: Daily Alcohol Amount: 4 tallboy beers/day Substance Use Type: Reports: None Substance Use Comment - Amount & Last Used: Pt denies recreational drug use Smoking Status (MU): Current Every Day Smoker Type: Cigarettes Amount Used/How Often: less than six a day Length of Time of Smoking/Using Tobacco: 20 Years Have You Smoked in the Last Year: Yes Review of Systems Positive: Depressed All Other Systems Reviewed And Are Negative: Yes Physical Exam - Summary Physical Exam Summary: Patient was severely intoxicated when I entered the room therefore physical exam was limited due to lack of cooperation. Triage Information Reviewed: Yes Vital Signs On Initial Exam: Initial Vitals Temp Pulse Resp BP Pulse Ox 98.9 F 116 18 129/89 97 01/19/17 23:57 01/19/17 23:57 01/19/17 23:57 01/19/17 23:57 01/19/17 23:57 Vital Signs Reviewed: Yes Appearance: Positive: Well-Appearing, No Pain Distress Skin: Positive: Warm, Skin Color Reflects Adequate Perfusion, Dry, Soft Head/Face: Positive: Normal Head/Face Inspection Eyes: Positive: EOMI, FREDDY ENT: Positive: Hearing grossly normal Respiratory/Lung Sounds: Positive: Breath Sounds Present Cardiovascular: Positive: RRR Musculoskeletal: Negative: Edema Left, Edema Right Neurological: Positive: Sensory/Motor Intact Psychiatric: Positive: Patient Uncooperative for Exam AVPU Assessment: Verbal (Reponds To) - ETOH Diagnostics - Vital Signs Vital Signs Temp Pulse Resp BP Pulse Ox 01/20/17 00:15 98.9 F 116 18 129/89 97 01/19/17 23:57 98.9 F 116 18 129/89 97 - Laboratory Result Diagrams: 01/20/17 02:22 01/20/17 11:03 Lab Statement: Any lab studies that have been ordered have been reviewed, and results considered in the medical decision making process. Course/Dx - Differential Dx/Clinical Impression Differential Diagnosis/HQI/PQRI: Positive: Acute Psychosis, Alcohol Intoxication , Bipolar Disorder, Depression, Drug Overdose/Intentional, Schizophrenia, Suicidal Ideation Provider Diagnosis: Persistent mood [affective] disorder, unspecified, Alcohol abuse Discharge - Discharge Plan Condition: Good Disposition: ADMITTED TO [facility]
[2017-01-20 02:48] LABS: ALT 29 U/L (7-52); Albumin 4.3 g/dL (3.2-5.2); Alkaline Phosphatase 82 U/L (34-104); BUN/Creatinine Ratio 14.4 (8-20); Blood Urea Nitrogen 13 mg/dL (6-24); CO2 Carbon Dioxide 24 mmol/L (22-32); Calcium 8.6 mg/dL (8.6-10.3); Chloride 105 mmol/L (101-111); EGFR African American 122.1 (>60); Globulin 2.5 g/dL (2-4); Glucose 101 mg/dL (70-100); Hematocrit 47 % (42-52); Hemoglobin 15.8 g/dl (14.0-18.0); Mean Corpuscular HGB Conc 34 g/dl (31-36); Mean Corpuscular Hemoglobin 31 pg (27-31); Mean Corpuscular Volume 91 fL (80-94); Mean Platelet Volume 8 um3 (7.4-10.4); Red Blood Count 5.14 10^6/ul (4.0-5.4); Red Cell Distribution Width 13 % (10.5-15); Sodium 139 mmol/L (133-145); Total Protein 6.8 g/dL (6.4-8.9); White Blood Count 8.7 10^3/ul (3.5-10.8)
[2017-01-20 03:12] LABS: Acetaminophen < 15 mcg/mL; Alcohol 183 mg/dL (<10); Salicylate < 2.50 mg/dL (<30)
[2017-01-20 03:22] LABS: TSH (Thyroid Stimulating Horm) 0.78 mcIU/mL (0.34-5.60)
[2017-01-20] MEDS ORDERED: Mouth Piece, Nicotine* 1 EACH CARTRIDGE ONE (07:37)
[2017-01-20] MEDS: Nicotine Inhaler* 10 MG AMP INH PRN ×2 (07:37→16:48)
[2017-01-20] MEDS: cloNIDine TAB* 0.1 MG PO SCH ×2 (07:37→21:38)
[2017-01-20] MEDS: Gabapentin CAP(*) 400 MG PO SCH ×3 (07:37→21:37)
[2017-01-20] MEDS ORDERED: Diazepam TAB(*) 10 MG PO ONE (09:04)
[2017-01-20] MEDS ORDERED: Acetaminophen TAB* 325 MG PO PRN (13:48)
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
[2017-01-20] MEDS: OLANzapine TAB* 10 MG PO SCH (21:37)
[2017-01-21] MEDS: cloNIDine TAB* 0.1 MG PO SCH ×2 (08:43→21:15)
[2017-01-21] MEDS: Thiamine TAB* 100 MG TAB PO SCH (08:43)
[2017-01-21] MEDS: Folic Acid TAB* 1 MG PO SCH (08:43)
[2017-01-21] MEDS: Nicotine Inhaler* 10 MG AMP INH PRN ×3 (08:43→16:17)
[2017-01-21] MEDS: Multivitamins/Minerals TAB PO SCH (08:44)
[2017-01-21] MEDS: Gabapentin CAP(*) 400 MG PO SCH ×3 (08:44→21:15)
[2017-01-21] MEDS: LORazepam TAB(*) 1 MG PO SCH ×2 (10:12→17:27)
[2017-01-21] MEDS: Nicotine PATCH 21 MG/24 HR* PATCH TRANSDERM SCH (11:07)
[2017-01-21] MEDS: Citalopram TAB* 20 MG PO SCH (11:07)
[2017-01-21] MEDS ORDERED: Nicotine Patch Removal NOTE PATCH OFF SCH (21:00)
[2017-01-21] MEDS: OLANzapine TAB* 10 MG PO SCH (21:15)
[2017-01-22 07:44] VITALS: BP 104/69
[2017-01-22] MEDS: Nicotine PATCH 21 MG/24 HR* PATCH TRANSDERM SCH (08:28)
[2017-01-22] MEDS: Gabapentin CAP(*) 400 MG PO SCH ×2 (08:30→13:55)
[2017-01-22] MEDS: Nicotine Inhaler* 10 MG AMP INH PRN ×3 (08:30→13:55)
[2017-01-22] MEDS: cloNIDine TAB* 0.1 MG PO SCH (08:30)
[2017-01-22] MEDS: Citalopram TAB* 20 MG PO SCH (08:30)
[2017-01-22] MEDS: Folic Acid TAB* 1 MG PO SCH (08:30)
[2017-01-22] MEDS: Multivitamins/Minerals TAB PO SCH (08:31)
[2017-01-22] MEDS: Thiamine TAB* 100 MG TAB PO SCH (08:31)
--- NOTE | 2017-01-22 11:41 | PN ---
MHU: Group Therapy Note - Service Type Service Type: [id number] Group Psychotherapy - Cognitive Behavioral Group Therapy ( CBT):Patient was attentive and participatory in CBT programming this morning, and remained in good behavioral control. Patient expressed positive insights regarding relevant treatment interventions and goals.
[2017-01-22] MEDS: LORazepam TAB(*) 1 MG PO SCH ×2 (11:45→15:30)
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
== END 2017-01-22 17:22 | disposition home or self-care (01) | DRG 897 ==
LOC: ED 23:29 → BSU 01-20 05:03
PROVIDERS: ADMIT Psychiatry & Neurology Psychiatry; ATTEND Psychiatry & Neurology Psychiatry
DX: F10.14 Alcohol abuse with alcohol-induced mood disorder (principal); F10.239 Alcohol dependence with withdrawal, unspecified; R45.851 Suicidal ideations; Y90.6 Blood alcohol level of 120-199 mg/100 ml; M54.9 Dorsalgia, unspecified; F10.229 Alcohol dependence with intoxication, unspecified
CPT/HCPCS: 36415; 80053; 80320; 80329; 84443; 85025; 90853; 99222; 99238; A9270-GY; G0480

== ENCOUNTER 2017-01-29 12:45 | Inpatient (IN) | payer MEDICARE, MEDICAID ==
[2017-01-29 13:11] LABS: Urine Bilirubin Negative (Negative); Urine Glucose Negative (Negative); Urine Nitrite Negative (Negative)
[2017-01-29 13:24] LABS: Benzodiazepine Urine Screen None Detected (None Detect)
[2017-01-29 13:27] LABS: Hematocrit 48 % (42-52); Hemoglobin 16.2 g/dl (14.0-18.0); Mean Corpuscular HGB Conc 34 g/dl (31-36); Mean Corpuscular Hemoglobin 30 pg (27-31); Mean Corpuscular Volume 91 fL (80-94); Mean Platelet Volume 8 um3 (7.4-10.4); Red Blood Count 5.33 10^6/ul (4.0-5.4); Red Cell Distribution Width 13 % (10.5-15); White Blood Count 8.5 10^3/ul (3.5-10.8)
[2017-01-29 13:49] LABS: ALT 21 U/L (7-52); AST 20 U/L (13-39); Albumin 4.5 g/dL (3.2-5.2); Alkaline Phosphatase 84 U/L (34-104); Anion Gap 7 mmol/L (2-11); BUN/Creatinine Ratio 9.1 (8-20); Blood Urea Nitrogen 9 mg/dL (6-24); CO2 Carbon Dioxide 27 mmol/L (22-32); Calcium 9.3 mg/dL (8.6-10.3); Chloride 103 mmol/L (101-111); EGFR African American 109.4 (>60); EGFR Non-African American 85.1 (>60); Globulin 2.9 g/dL (2-4); Glucose 99 mg/dL (70-100); Potassium 3.5 mmol/L (3.5-5.0); Sodium 137 mmol/L (133-145); Total Protein 7.4 g/dL (6.4-8.9)
[2017-01-29 14:00] LABS: Acetaminophen < 15 mcg/mL; Alcohol 45 mg/dL (<10); Salicylate < 2.50 mg/dL (<30)
--- NOTE | 2017-01-29 14:00 | ED ---
Psychiatric Complaint - HPI Summary HPI Summary: Patient presents after recent discharge from this facility with complaints of SI and HI towards his father. He has been drinking alcohol and using cocaine, with last use today. He feels that he has been hallucinating and that the medications he was discharge with are not working, even though he has been compliant. - History Of Current Complaint Chief Complaint: EDMentalHealth Time Seen by Provider: 01/29/17 12:52 Hx Obtained From: Patient Onset/Duration: Gradual Onset Timing: Constant Severity Initially: Severe Severity Currently: Severe Character: Depressed, Anxious Aggravating Factor(s): Alcohol Use, Drug Use Alleviating Factor(s): Nothing Associated Signs And Symptoms: Positive: Hostile, Hallucinating Related History: Positive For: Prior Psychiatric Issues Has Suicidal: Reports: Thoughts Has Homicidal: Reports: Thoughts - Allergies/Home Medications Allergies/Adverse Reactions: Allergies Allergy/AdvReac Type Severity Reaction Status Date / Time Valproic Acid [From Depakote] Allergy Vomiting Verified 01/20/17 00:22 PMH/Surg Hx/FS Hx/Imm Hx Cardiovascular History: Reports: Hx Hypertension Musculoskeletal History: Reports: Hx Back Problems - Lower back, Hx Fibromyalgia Sensory History: Reports: Hx Contacts or Glasses - Glasses Denies: Hx Hearing Aid Opthamlomology History: Reports: Hx Contacts or Glasses - Glasses Psychiatric History: Reports: Hx Anxiety, Hx Depression, Hx Panic Disorder, Hx Post Traumatic Stress Disorder, Hx Inpatient Treatment, Hx Community Mental Health Tx - Rehab, Hx Schizophrenia, Hx Bipolar Disorder, Hx Suicide Attempt, Hx of Violent Episodes Against Others, Hx Substance Abuse Denies: Hx Eating Disorder - Surgical History Surgery Procedure, Year, and Place: tonsilectomy. tubes in ears Infectious Disease History: No Infectious Disease History: Denies: Traveled Outside the [place] in Last 30 Days - Family History Known Family History: Positive: Cardiac Disease, Hypertension, Diabetes, Other - [place] - Social History Occupation: Unemployed Lives: With Family Alcohol Use: Daily Alcohol Amount: 4 tallboy beers/day Substance Use Type: Reports: Cocaine Substance Use Comment - Amount & Last Used: Pt denies recreational drug use Smoking Status (MU): Current Every Day Smoker Type: Cigarettes Amount Used/How Often: less than six a day Length of Time of Smoking/Using Tobacco: 20 Years Have You Smoked in the Last Year: Yes Cessation Counseling: Patient Advised to Stop Review of Systems Positive: Anxious, Depressed All Other Systems Reviewed And Are Negative: Yes Physical Exam Triage Information Reviewed: Yes Vital Signs On Initial Exam: Initial Vitals Temp Pulse Resp BP Pulse Ox 98.0 F 112 20 153/89 100 01/29/17 12:48 01/29/17 12:48 01/29/17 12:48 01/29/17 12:48 01/29/17 12:48 Vital Signs Reviewed: Yes Appearance: Positive: Well-Appearing, No Pain Distress, Well-Nourished Skin: Positive: Warm, Skin Color Reflects Adequate Perfusion, Dry, Soft Head/Face: Positive: Normal Head/Face Inspection Eyes: Positive: EOMI, FREDDY, Conjunctiva Clear ENT: Positive: Hearing grossly normal Respiratory/Lung Sounds: Positive: Clear to Auscultation, Breath Sounds Present Cardiovascular: Positive: Tachycardia Abdomen Description: Positive: Nontender, Soft Bowel Sounds: Positive: Present Musculoskeletal: Negative: Edema Left, Edema Right Neurological: Positive: Sensory/Motor Intact, Alert, Oriented to Person Place, Time, NV Bundle Intact Distally, Normal Gait Psychiatric: Positive: Anxious AVPU Assessment: Alert Diagnostics - Vital Signs Vital Signs Temp Pulse Resp BP Pulse Ox 01/29/17 12:49 97.9 F 116 20 153/89 99 01/29/17 12:48 98.0 F 112 20 153/89 100 - Laboratory Lab Results: Lab Results 01/29/17 01/29/17 01/29/17 Range/Units 13:00 13:00 13:16 WBC 8.5 (3.5-10.8) 10^3/ul RBC 5.33 (4.0-5.4) 10^6/ul Hgb 16.2 (14.0-18.0) g/dl Hct 48 (42-52) % MCV 91 (80-94) fL MCH 30 (27-31) pg MCHC 34 (31-36) g/dl RDW 13 (10.5-15) % Plt Count 274 (150-450) 10^3/ul MPV 8 (7.4-10.4) um3 Neut % (Auto) 76.2 (38-83) % Lymph % (Auto) 18.4 L (25-47) % [place] % (Auto) 3.7 (1-9) % Eos % (Auto) 1.1 (0-6) % Baso % (Auto) 0.6 (0-2) % Absolute Neuts (auto) 6.5 (1.5-7.7) 10^3/ul Absolute Lymphs (auto) 1.6 (1.0-4.8) 10^3/ul Absolute Monos (auto) 0.3 (0-0.8) 10^3/ul Absolute Eos (auto) 0.1 (0-0.6) 10^3/ul Absolute Basos (auto) 0 (0-0.2) 10^3/ul Absolute Nucleated RBC 0.02 10^3/ul Nucleated RBC % 0.3 Sodium (133-145) mmol/L Potassium (3.5-5.0) mmol/L Chloride (101-111) mmol/L Carbon Dioxide (22-32) mmol/L Anion Gap (2-11) mmol/L BUN (6-24) mg/dL Creatinine (0.67-1.17) mg/dL Est GFR ( Amer) (>60) Est GFR (Non-Af Amer) (>60) BUN/Creatinine Ratio (8-20) Glucose (70-100) mg/dL Calcium (8.6-10.3) mg/dL Total Bilirubin (0.2-1.0) mg/dL AST (13-39) U/L ALT (7-52) U/L Alkaline Phosphatase (34-104) U/L Total Protein (6.4-8.9) g/dL Albumin (3.2-5.2) g/dL Globulin (2-4) g/dL Albumin/Globulin Ratio (1-3) TSH Urine Color Yellow Urine Appearance Cloudy Urine pH 7.0 (5-9) Ur Specific [place] 1.011 (1.010-1.030) Urine Protein Negative (Negative) Urine Ketones Negative (Negative) Urine Blood Negative (Negative) Urine Nitrate Negative (Negative) Urine Bilirubin Negative (Negative) Urine Urobilinogen Negative (Negative) Ur Leukocyte Esterase Negative (Negative) Urine Glucose Negative (Negative) Salicylates Urine Opiates Screen None detected (None Detect) Acetaminophen Ur Barbiturates Screen None detected (None Detect) Ur Phencyclidine Scrn None detected (None Detect) Ur Amphetamines Screen None detected (None Detect) U Benzodiazepines Scrn None detected (None Detect) Urine Cocaine Screen Presumptive positive H (None Detect) U Cannabinoids Screen None detected (None Detect) Serum Alcohol 01/29/17 Range/Units 13:16 WBC (3.5-10.8) 10^3/ul RBC (4.0-5.4) 10^6/ul Hgb (14.0-18.0) g/dl Hct (42-52) % MCV (80-94) fL MCH (27-31) pg MCHC (31-36) g/dl RDW (10.5-15) % Plt Count (150-450) 10^3/ul MPV (7.4-10.4) um3 Neut % (Auto) (38-83) % Lymph % (Auto) (25-47) % [place] % (Auto) (1-9) % Eos % (Auto) (0-6) % Baso % (Auto) (0-2) % Absolute Neuts (auto) (1.5-7.7) 10^3/ul Absolute Lymphs (auto) (1.0-4.8) 10^3/ul Absolute Monos (auto) (0-0.8) 10^3/ul Absolute Eos (auto) (0-0.6) 10^3/ul Absolute Basos (auto) (0-0.2) 10^3/ul Absolute Nucleated RBC 10^3/ul Nucleated RBC % Sodium 137 (133-145) mmol/L Potassium 3.5 (3.5-5.0) mmol/L Chloride 103 (101-111) mmol/L Carbon Dioxide 27 (22-32) mmol/L Anion Gap 7 (2-11) mmol/L BUN 9 (6-24) mg/dL Creatinine 0.99 (0.67-1.17) mg/dL Est GFR ( Amer) 109.4 (>60) Est GFR (Non-Af Amer) 85.1 (>60) BUN/Creatinine Ratio 9.1 (8-20) Glucose 99 (70-100) mg/dL Calcium 9.3 (8.6-10.3) mg/dL Total Bilirubin 0.30 (0.2-1.0) mg/dL AST 20 (13-39) U/L ALT 21 (7-52) U/L Alkaline Phosphatase 84 (34-104) U/L Total Protein 7.4 (6.4-8.9) g/dL Albumin 4.5 (3.2-5.2) g/dL Globulin 2.9 (2-4) g/dL Albumin/Globulin Ratio 1.6 (1-3) TSH Pending Urine Color Urine Appearance Urine pH (5-9) Ur Specific [place] (1.010-1.030) Urine Protein (Negative) Urine Ketones (Negative) Urine Blood (Negative) Urine Nitrate (Negative) Urine Bilirubin (Negative) Urine Urobilinogen (Negative) Ur Leukocyte Esterase (Negative) Urine Glucose (Negative) Salicylates Pending Urine Opiates Screen (None Detect) Acetaminophen Pending Ur Barbiturates Screen (None Detect) Ur Phencyclidine Scrn (None Detect) Ur Amphetamines Screen (None Detect) U Benzodiazepines Scrn (None Detect) Urine Cocaine Screen (None Detect) U Cannabinoids Screen (None Detect) Serum Alcohol Pending Result Diagrams: 01/29/17 13:16 01/29/17 13:16 Lab Statement: Any lab studies that have been ordered have been reviewed, and results considered in the medical decision making process. Course/Dx - Differential Dx/Clinical Impression Differential Diagnosis/HQI/PQRI: Positive: Acute Psychosis, Alcohol Intoxication , Anxiety, Bipolar Disorder, Depression, Homicidal Ideation, Schizophrenia, Suicidal Ideation Provider Diagnosis: Suicidal ideation, Depression, Substance abuse - Physician Notifications Patient Is Medically Stable For: Psych Evaluation Discharge - Discharge Plan Condition: Stable Disposition: ADMITTED TO [facility]
[2017-01-29] MEDS ORDERED: LORazepam TAB(*) 1 MG PO ONE (14:04)
[2017-01-29 14:16] LABS: TSH (Thyroid Stimulating Horm) 0.99 mcIU/mL (0.34-5.60)
--- NOTE | 2017-01-29 17:13 | ED ---
charlene Charlton Timothy, scribed for Adán Jeffery MD on 01/29/17 at 1609 . Progress - Progress Note Progress Note: Ranjit Mitchell is a 36 yo male presenting to [facility] with SI, substance abuse, and depression - Consult/PCP Time Called: 14:15 Course/Dx - Course Course Of Treatment: Ranjit Mitchell is a 36 yo male presenting to [facility] with depression, SI, and substance abuse. He is currently stable. After conversation with his U tree planter, he will be admitted to the behavioral unit as a 939 against his will. - Diagnoses Provider Diagnoses: Suicidal ideation, Depression, Substance abuse - Provider Notifications Discussed Care Of Patient With: 1605 - U - recommends 939 admission. Instructed by Provider To: Admit As Inpatient The documentation as recorded by the kieraibecharlene Timothy accurately reflects the service I personally performed and the decisions made by me, Adán Jeffery MD.
[2017-01-29] MEDS ORDERED: Acetaminophen TAB* 325 MG PO PRN (17:24)
[2017-01-29] MEDS ORDERED: Al Hydrox/Mg Hydrox/Simet LIQ* 30 ML UDC PO PRN (17:24)
[2017-01-29] MEDS ORDERED: Thiamine IV* 100 MG IM X 1 ON ADMISSION IM ONE (19:00)
[2017-01-29] MEDS ORDERED: LORazepam IM* PER WAM PARAMETERS IM SCH (19:00)
[2017-01-29] MEDS ORDERED: Mouth Piece, Nicotine* 1 EACH CARTRIDGE ONE (19:11)
[2017-01-29] MEDS ORDERED: Nicotine Inhaler* 10 MG AMP ONE (19:11)
[2017-01-29] MEDS ORDERED: Nicotine GUM* 2 MG ONE (19:11)
[2017-01-29] MEDS ORDERED: Mouth Piece, Nicotine* 1 EACH CARTRIDGE INH ONE (21:00)
[2017-01-29] MEDS: cloNIDine TAB* 0.1 MG PO SCH (21:06)
[2017-01-29] MEDS: Gabapentin CAP(*) 400 MG PO SCH (21:06)
[2017-01-29] MEDS: Nicotine Patch Removal NOTE PATCH OFF SCH (21:06)
[2017-01-29] MEDS: OLANzapine TAB* 10 MG PO SCH (21:06)
[2017-01-30] MEDS: Gabapentin CAP(*) 400 MG PO SCH ×3 (10:18→20:44)
[2017-01-30] MEDS: Vitamin THERAPEUTIC TAB PO SCH (10:18)
[2017-01-30] MEDS: Thiamine TAB* 100 MG TAB DAILY (@ T+1) PO SCH (10:18)
[2017-01-30] MEDS: cloNIDine TAB* 0.1 MG PO SCH ×2 (10:18→20:44)
[2017-01-30] MEDS: Citalopram TAB* 20 MG PO SCH (10:18)
[2017-01-30] MEDS: Folic Acid TAB* 1 MG DAILY PO SCH (10:18)
[2017-01-30] MEDS: Nicotine PATCH 21 MG/24 HR* PATCH TRANSDERM PRN (12:23)
[2017-01-30] MEDS: Nicotine Inhaler* 10 MG AMP INH PRN ×3 (12:24→20:43)
[2017-01-30] MEDS: LORazepam TAB(*) WAM SCALE 0-6 MG PO SCH ×3 (14:10→21:44)
[2017-01-30] MEDS: Nicotine GUM* 2 MG PRN ×2 (14:13→20:43)
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
[2017-01-30] MEDS: OLANzapine TAB* 10 MG PO SCH (20:44)
[2017-01-30] MEDS: Nicotine Patch Removal NOTE PATCH OFF SCH (21:59)
[2017-01-31] MEDS: Nicotine Inhaler* 10 MG AMP INH PRN ×7 (05:39→22:40)
[2017-01-31] MEDS: Nicotine GUM* 2 MG PRN ×6 (05:39→22:40)
[2017-01-31] MEDS: cloNIDine TAB* 0.1 MG PO SCH ×2 (08:27→20:39)
[2017-01-31] MEDS: Vitamin THERAPEUTIC TAB PO SCH (08:27)
[2017-01-31] MEDS: Thiamine TAB* 100 MG TAB DAILY (@ T+1) PO SCH (08:27)
[2017-01-31] MEDS: Citalopram TAB* 20 MG PO SCH (08:28)
[2017-01-31] MEDS: Nicotine PATCH 21 MG/24 HR* PATCH TRANSDERM PRN (08:29)
[2017-01-31] MEDS: Folic Acid TAB* 1 MG DAILY PO SCH (08:29)
[2017-01-31] MEDS: Gabapentin CAP(*) 400 MG PO SCH ×3 (08:29→20:38)
[2017-01-31] MEDS ORDERED: Diazepam TAB(*) 10 MG PO ONE (11:07)
--- NOTE | 2017-01-31 11:16 | PN ---
Subjective - Subjective Service Type: 48499 Hosp care 15 min low complexity Subjective: Patient shows multiple sequelae of cocaine withdrawal, including irritability, hyperphagia, hypersomnolence and anxiety. He endorses SI today and strong urges to leave the hospital and go out and drink. He remains, however, committed to pursuing inpatient rehab at this time and wants to start attending groups here on the unit. Objective - Appearance Appearance: Well Developed/Nourished Dysmorphic Features: No Hygiene: Normal Grooming: Fairly Well Kept - Behavior Psychomotor Activities: Abnormal-Decreased Exhibits Abnormal Movement: No - Attitude and Relatedness Attitude and Relatedness: Cooperative Eye Contact: Fair - Speech Quality: Unpressured Latencies: Normal Quantity: Terse - Mood Patient's Decription of Mood: "Anxious" - Affect Observed Affect: Tense Affect Consistent with: Dysphoria - Thought Process Patient's Thought Process: Coherent Thought Content: Yes Passive Wish, No Suicidal Planning, No Homicidal Ideation, No Paranoid Ideation - Sensorium Experiencing Hallucinations: No, Sensorium is Clear Type of Hallucinations: Visual: No, Auditory: No, Command: No - Level of Consciousness Level of Consciousness: Lethargic Orientation: Yes Intact, Yes Orientated to Time, Yes Orientated to Place, Yes Orientated to Person - Impulse Control Impulse Control: Poor - Insight and Judgement Insight and Judgement: Impaired - Group Participation Particating in Group Activities: No - Medication Management Medication Management Adherence: Yes Assessment - Assessment Merits Inpatient Hospitalization: For Immediate Safety, For Stabilization 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 single white male with a history of polysubstance dependence, psychotic and affective problems readmitted voluntarily, seeking detoxification from cocaine and alcohol and endorsing both SI and HI. Plan - Plan Treatment Plan: Name: YOVANA SHELTON Birthdate: 1980 [id number] The patient has been placed on the WA protocol for withdrawal and he is also resumed on olanzapine, citalopram, clonidine and gabapentin. The plan remains for him to be placed in a substance abuse rehab facility after safe detoxification. Will give him a one-time dose of diazepam 10mg now for withdrawal. Continued Medication Management: Continue Outpt Medication Medications: Current Medications Acetaminophen (Tylenol Tab*) 650 mg PO Q4H PRN PRN Reason: PAIN or TEMP > 101 F Al Hydrox/Mg Hydrox/Simethicone (Maalox Plus*) 30 ml PO Q4H PRN PRN Reason: INDIGESTION Citalopram Hydrobromide (Celexa Tab*) 20 mg PO DAILY [facility] Last Admin: 01/31/17 08:28 Dose: 20 mg Clonidine HCl (Catapres Tab*) 0.1 mg PO BID [facility] Last Admin: 01/31/17 08:27 Dose: 0.1 mg Folic Acid (Folvite Tab*) 1 mg PO DAILY [facility] Last Admin: 01/31/17 08:29 Dose: 1 mg Gabapentin (Neurontin Cap(*)) 800 mg PO TID [facility] Last Admin: 01/31/17 08:29 Dose: 800 mg Lorazepam (Ativan Inj*) 0 - 6 mg IM .PER WAM PARAMETERS [facility] PRN Reason: Protocol Lorazepam (Ativan Tab(*)) 0 - 6 mg PO .PER WAM PARAMETERS [facility] PRN Reason: Protocol Last Admin: 01/30/17 21:44 Dose: 2 mg Multivitamins (Theragran Tab*) 1 tab PO DAILY [facility] Last Admin: 01/31/17 08:27 Dose: 1 tab Nicotine (Nicotine Patch 21 Mg/24 Hr*) 1 patch TRANSDERM DAILY PRN PRN Reason: CRAVINGS Last Admin: 01/31/17 08:29 Dose: 1 patch Nicotine (Nicotine Inhaler*) 10 mg INH Q2H PRN PRN Reason: CRAVINGS Last Admin: 01/31/17 11:02 Dose: 10 mg Nicotine Polacrilex (Nicotine Gum*) 2 mg .SEE ORDER Q2H PRN PRN Reason: CRAVINGS Last Admin: 01/31/17 11:02 Dose: 2 mg Olanzapine (Zyprexa Tab*) 10 mg PO BEDTIME [facility] Last Admin: 01/30/17 20:44 Dose: 10 mg Pharmacy Profile Note (Nicotine Patch Removal Note*) 1 note PATCH OFF 2100 [facility] Last Admin: 01/30/17 21:59 Dose: Not Given Thiamine HCl (Vitamin B-1 Tab*) 100 mg PO DAILY [facility] Last Admin: 01/31/17 08:27 Dose: 100 mg - Discharge Plan Discharge Plan: Inpatient Hospitalization
[2017-01-31] MEDS: OLANzapine TAB* 10 MG PO SCH (20:39)
[2017-01-31] MEDS: Nicotine Patch Removal NOTE PATCH OFF SCH (22:18)
[2017-01-31] MEDS: LORazepam TAB(*) WAM SCALE 0-6 MG PO SCH (22:58)
[2017-02-01] MEDS: cloNIDine TAB* 0.1 MG PO SCH ×2 (09:45→20:30)
[2017-02-01] MEDS: Vitamin THERAPEUTIC TAB PO SCH (09:45)
[2017-02-01] MEDS: Citalopram TAB* 20 MG PO SCH (09:45)
[2017-02-01] MEDS: Gabapentin CAP(*) 400 MG PO SCH ×3 (09:46→20:30)
[2017-02-01] MEDS: Thiamine TAB* 100 MG TAB DAILY (@ T+1) PO SCH (09:46)
[2017-02-01] MEDS: Folic Acid TAB* 1 MG DAILY PO SCH (09:46)
--- NOTE | 2017-02-01 11:03 | PN ---
Subjective - Subjective Service Type: 14215 Hosp care 15 min low complexity Subjective: The patient remains withdrawn and irritable, complains of still feeling withdrawal symptoms from alcohol and cocaine. Staff indicates that he is artificially trying to elevate his WAM scores to receive lorazepam. The patient denies SI or HI. Objective - Appearance Appearance: Well Developed/Nourished Dysmorphic Features: No Hygiene: Dirty Grooming: Disheveled - Behavior Psychomotor Activities: Abnormal-Decreased Exhibits Abnormal Movement: No - Attitude and Relatedness Attitude and Relatedness: Withdrawn Eye Contact: Poor - Speech Quality: Unpressured Latencies: Normal Quantity: Terse - Mood Patient's Decription of Mood: "Terrible" - Affect Observed Affect: Tense Affect Consistent with: Dysphoria - Thought Process Patient's Thought Process: Coherent Thought Content: No Passive Wish, No Suicidal Planning, No Homicidal Ideation, No Paranoid Ideation - Sensorium Experiencing Hallucinations: No, Sensorium is Clear Type of Hallucinations: Visual: No, Auditory: No, Command: No - Level of Consciousness Level of Consciousness: Lethargic Orientation: Yes Intact, Yes Orientated to Time, Yes Orientated to Place, Yes Orientated to Person - Impulse Control Impulse Control: Tenuous - Insight and Judgement Insight and Judgement: Fair - Group Participation Particating in Group Activities: No - Medication Management Medication Management Adherence: Yes Assessment - Assessment Merits Inpatient Hospitalization: For Immediate Safety, For Stabilization 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 single white male with a history of polysubstance dependence, psychotic and affective problems readmitted voluntarily, seeking detoxification from cocaine and alcohol and endorsing both SI and HI. Plan - Plan Treatment Plan: Name: YOVANA SHELTON Birthdate: 1980 [id number] The patient has been placed on the WAM protocol for withdrawal and he is also resumed on olanzapine, citalopram, clonidine and gabapentin. The plan remains for him to be placed in a substance abuse rehab facility after safe detoxification. Will d/c WAM and start diazepam 10mg PO BID for withdrawal. Continued Medication Management: Continue Outpt Medication Medications: Current Medications Acetaminophen (Tylenol Tab*) 650 mg PO Q4H PRN PRN Reason: PAIN or TEMP > 101 F Last Admin: 01/31/17 16:22 Dose: 650 mg Al Hydrox/Mg Hydrox/Simethicone (Maalox Plus*) 30 ml PO Q4H PRN PRN Reason: INDIGESTION Citalopram Hydrobromide (Celexa Tab*) 20 mg PO DAILY [facility] Last Admin: 02/01/17 09:45 Dose: 20 mg Clonidine HCl (Catapres Tab*) 0.1 mg PO BID [facility] Last Admin: 02/01/17 09:45 Dose: 0.1 mg Diazepam (Valium Tab(*)) 10 mg PO BID [facility] Folic Acid (Folvite Tab*) 1 mg PO DAILY [facility] Last Admin: 02/01/17 09:46 Dose: 1 mg Gabapentin (Neurontin Cap(*)) 800 mg PO TID [facility] Last Admin: 02/01/17 09:46 Dose: 800 mg Multivitamins (Theragran Tab*) 1 tab PO DAILY [facility] Last Admin: 02/01/17 09:45 Dose: 1 tab Nicotine (Nicotine Patch 21 Mg/24 Hr*) 1 patch TRANSDERM DAILY PRN PRN Reason: CRAVINGS Last Admin: 01/31/17 08:29 Dose: 1 patch Nicotine (Nicotine Inhaler*) 10 mg INH Q2H PRN PRN Reason: CRAVINGS Last Admin: 01/31/17 22:40 Dose: 10 mg Nicotine Polacrilex (Nicotine Gum*) 2 mg .SEE ORDER Q2H PRN PRN Reason: CRAVINGS Last Admin: 01/31/17 22:40 Dose: 2 mg Olanzapine (Zyprexa Tab*) 10 mg PO BEDTIME [facility] Last Admin: 01/31/17 20:39 Dose: 10 mg Pharmacy Profile Note (Nicotine Patch Removal Note*) 1 note PATCH OFF 2100 [facility] Last Admin: 01/31/17 22:18 Dose: 1 note Thiamine HCl (Vitamin B-1 Tab*) 100 mg PO DAILY [facility] Last Admin: 02/01/17 09:46 Dose: 100 mg - Discharge Plan Discharge Plan: Drug/Alcohol Rehab Lab Results - Lab Results Lab Results: Patient's labs, dated 12/13/16: Cholesterol: 149 Triglycerides: 74 LDL: 86 HDL: 48.0 HgbA1c: 4.5%
[2017-02-01] MEDS: Diazepam TAB(*) 10 MG PO SCH ×2 (11:36→20:30)
[2017-02-01] MEDS: Nicotine GUM* 2 MG PRN ×4 (11:37→23:24)
[2017-02-01] MEDS: Nicotine Inhaler* 10 MG AMP INH PRN ×4 (11:37→23:24)
[2017-02-01] MEDS: Nicotine PATCH 21 MG/24 HR* PATCH TRANSDERM PRN (11:38)
[2017-02-01] MEDS: OLANzapine TAB* 10 MG PO SCH (20:31)
[2017-02-02] MEDS: Nicotine Patch Removal NOTE PATCH OFF SCH (06:05)
[2017-02-02 07:36] VITALS: BP 116/79
[2017-02-02] MEDS: Folic Acid TAB* 1 MG DAILY PO SCH (08:36)
[2017-02-02] MEDS: Thiamine TAB* 100 MG TAB DAILY (@ T+1) PO SCH (08:36)
[2017-02-02] MEDS: Diazepam TAB(*) 10 MG PO SCH (08:36)
[2017-02-02] MEDS: cloNIDine TAB* 0.1 MG PO SCH (08:36)
[2017-02-02] MEDS: Vitamin THERAPEUTIC TAB PO SCH (08:36)
[2017-02-02] MEDS: Gabapentin CAP(*) 400 MG PO SCH (08:37)
[2017-02-02] MEDS: Citalopram TAB* 20 MG PO SCH (08:37)
[2017-02-02] MEDS: Nicotine GUM* 2 MG PRN ×2 (08:46→10:50)
[2017-02-02] MEDS: Nicotine Inhaler* 10 MG AMP INH PRN ×2 (08:47→10:49)
[2017-02-02] MEDS: Nicotine PATCH 21 MG/24 HR* PATCH TRANSDERM PRN (09:46)
--- NOTE | 2017-02-02 22:37 | DS ---
DISCHARGE SUMMARY: DATE OF ADMISSION: 01/29/17 DATE OF DISCHARGE: 02/02/17 DISCHARGE DIAGNOSES: [place] I: Alcohol-induced depressive disorder, alcohol use disorder, cocaine use disorder. [place] II: Deferred. [place] III: Chronic back pain. [place] IV: Moderate primary support and legal stressors. [place] V: At the time of admission was 30 and at the time of discharge is 60. CONDITION AT THE TIME OF DISCHARGE: Stable. The patient is calm, cooperative. He no longer appears to be withdrawn from cocaine or alcohol. He is future oriented, stating that he wants to go to rehab and complete the program and then get into sober housing in the community. He also states that he would like to join a gym and spend time with sober friends in the community. He denies suicidal or homicidal ideations. There is no evidence of psychotic behavior and he feels good about his chances for sobriety. MENTAL STATUS EXAMINATION: The patient is a young white male with reddish thinning hair. He has a goatee chong. He is wearing hospital scrubs. He is calm and cooperative, makes good eye contact. Speech has normal rate, tone, and volume. Mood is euthymic with a full affect. Thought process is linear and goal directed. Thought content is significant for his desire to attend inpatient substance abuse rehab. He denies suicidal or homicidal ideations. He denies visual or auditory hallucinations. Insight and judgment are fair given his willingness to follow through with substance abuse treatment and cognitively he is awake and alert with what would appear to be an average intellect. DISCHARGE INSTRUCTIONS TO THE PATIENT: A. Medications: He is takin. Celexa 20 mg p.o. daily. 2. Gabapentin 800 mg p.o. t.i.d. 3. Olanzapine 10 mg in the evening. 4. Clonidine 0.1 mg p.o. b.i.d. B. Diet is regular. C. Activities as per [facility] routine. The patient is strongly encouraged to abstain from all tobacco products; however, he is declining the offer of continued nicotine replacement therapy indicating his preference to continue chewing smokeless tobacco after he leaves the hospital. There are no diagnostic studies pending at the time of discharge. D. Followup care: The patient will be a direct transfer to the [facility] in [place], [place], specifically to the [facility]. They will arrange all of his followup appointments after his time of discharge from that facility. HOSPITAL COURSE: A. Reason for admission: The patient is a 36-year-old single white male with a history of alcohol and cocaine abuse as well as psychotic and affective problems, who was just discharged from my service on the first day of January, who now returns to the hospital via ambulance complaining of both suicidal and homicidal ideations in the context of relapse on both alcohol and cocaine. It should be noted that this is the fifth psychiatric hospitalization for the patient since November of this year. On all four prior hospitalizations, it was strongly encouraged that he accept a transfer to an inpatient substance abuse rehab facility and on some occasions he was actually agreeable with this only to later change his mind and opt for outpatient treatment. It does appear that he quickly relapsed not only on alcohol but this time on cocaine. He reports that he lives in an apartment in [place], [place], that has numerous substance abusers also residing there. At some point, he realized that his trajectory was downward and he called the ambulance to bring him back to the hospital where he is seeking detoxification and further services. We were clear with him in our emergency facility that if he was unwilling to accept rehab, then there would be no point in readmitting him as these brief hospitalizations have done nothing seemingly helpful over the last 2 months. The patient did agree to sign paperwork to the effect that he would be willing to be transferred to drug and alcohol rehab. B. Psychiatric treatment rendered: The patient was admitted to the adult behavioral health unit where he was placed on q.30-minute checks for his own safety. We did place him on the WA protocol for signs and symptoms of detox, although he was not scoring. The patient's preference was to be placed on a Valium taper and so the WAM was discontinued in favor of descending dosing of diazepam. Over time, he became much more comfortable, much more euthymic, he started participating more in groups. Ranjit has maintained his willingness to follow up with inpatient substance abuse treatment, which he desperately needs. We did get him referred to the [facility] in [place], [place], and he was accepted and he is pending transfer to that facility this morning. The patient was kept on all of his outpatient medications including olanzapine, citalopram, clonidine, and gabapentin and he tolerated these well. At this time , he is no longer on lorazepam and he is safe for discharge to rehab. We would certainly hope that he can find a substance abuse sober housing in the community after his time of discharge from [facility]. We wish him the best for a safe, healthy and sober future. [id number]/[facility] #: [id number] NATHALY
== END 2017-02-02 11:45 | DRG 897 ==
LOC: ED 12:45 → BSU 16:28
PROVIDERS: ADMIT Psychiatry & Neurology Psychiatry; ATTEND Psychiatry & Neurology Psychiatry
PROC: HZ2ZZZZ Detoxification Services for Substance Abuse Treatment (ICD-10-PCS; principal; 2017-02-01)
DX: F10.14 Alcohol abuse with alcohol-induced mood disorder (principal); F14.10 Cocaine abuse, uncomplicated; I10 Essential (primary) hypertension; G89.29 Other chronic pain; M54.9 Dorsalgia, unspecified; Z88.8 Allergy status to other drugs, medicaments and biological substances; M79.7 Fibromyalgia; F32.9 Major depressive disorder, single episode, unspecified; F41.0 Panic disorder [episodic paroxysmal anxiety]; F43.10 Post-traumatic stress disorder, unspecified; F20.9 Schizophrenia, unspecified; F31.9 Bipolar disorder, unspecified; Z82.49 Family history of ischemic heart disease and other diseases of the circulatory system; Z83.3 Family history of diabetes mellitus; Z80.9 Family history of malignant neoplasm, unspecified; F17.210 Nicotine dependence, cigarettes, uncomplicated; Z81.8 Family history of other mental and behavioral disorders; Z81.1 Family history of alcohol abuse and dependence; Y90.9 Presence of alcohol in blood, level not specified
CPT/HCPCS: 36415; 80053; 80307; 80320; 80329; 81003; 84443; 85025; 99222; 99231; 99238; A9270-GY; G0480

== ENCOUNTER 2017-03-13 14:30 | Emergency (ER) | payer MEDICARE, MEDICAID ==
[2017-03-13 14:37] VITALS: BP 127/86
[2017-03-13 15:09] LABS: Urine Bilirubin Negative (Negative); Urine Glucose Negative (Negative); Urine Nitrite Negative (Negative)
[2017-03-13] MEDS ORDERED: LORazepam TAB(*) 1 MG PO ONE (15:18)
[2017-03-13 15:26] LABS: Hematocrit 49 % (42-52); Hemoglobin 16.4 g/dl (14.0-18.0); Mean Corpuscular HGB Conc 34 g/dl (31-36); Mean Corpuscular Hemoglobin 30 pg (27-31); Mean Corpuscular Volume 90 fL (80-94); Mean Platelet Volume 8 um3 (7.4-10.4); Red Blood Count 5.39 10^6/ul (4.0-5.4); Red Cell Distribution Width 13 % (10.5-15); White Blood Count 6.6 10^3/ul (3.5-10.8)
[2017-03-13 15:28] LABS: Benzodiazepine Urine Screen None Detected (None Detect)
[2017-03-13 15:40] LABS: Anion Gap 9 mmol/L (2-11); BUN/Creatinine Ratio 8.8 (8-20); Blood Urea Nitrogen 8 mg/dL (6-24); CO2 Carbon Dioxide 22 mmol/L (22-32); Chloride 107 mmol/L (101-111); Glucose 102 mg/dL (70-100); Potassium 3.7 mmol/L (3.5-5.0); Sodium 138 mmol/L (133-145)
[2017-03-13 15:41] LABS: ALT 38 U/L (7-52); AST 28 U/L (13-39); Albumin 4.9 g/dL (3.2-5.2); Alkaline Phosphatase 82 U/L (34-104); Calcium 9.1 mg/dL (8.6-10.3); EGFR African American 120.6 (>60); EGFR Non-African American 93.7 (>60); Globulin 2.7 g/dL (2-4); Total Protein 7.6 g/dL (6.4-8.9)
[2017-03-13 15:52] LABS: Acetaminophen < 15 mcg/mL; Alcohol 212 mg/dL (<10); Salicylate < 2.50 mg/dL (<30)
[2017-03-13 16:01] LABS: TSH (Thyroid Stimulating Horm) 1.07 mcIU/mL (0.34-5.60)
--- NOTE | 2017-03-13 18:51 | ED ---
Baudilio Charlton Claudia, scribed for Adán Jeffery MD on 03/13/17 at 1537 . Psychiatric Complaint - HPI Summary HPI Summary: 36 year old male presents to the ED with depression and suicidal thoughts with a plan. The pt notes that he began having some suicidal thoughts with a plan" to cut his throat" with a gesture. The pt has a PMHX of Depression and other psychiatric disorders. The pt denies loss of appetite and sleep disturbances. Pt also denies any CP, abd pain and SOB. Pt denies any aggravating or alleviating factors. - History Of Current Complaint Chief Complaint: EDMentalHealth Time Seen by Provider: 03/13/17 15:07 Hx Obtained From: Patient Onset/Duration: Sudden Onset, Lasting Hours - this afternoon, Still Present Timing: Constant Character: Manic, Depressed Has Suicidal: Reports: Thoughts, With A Plan, Demonstrates Gesture - Allergies/Home Medications Allergies/Adverse Reactions: Allergies Allergy/AdvReac Type Severity Reaction Status Date / Time Valproic Acid [From Depakote] Allergy Vomiting Verified 01/20/17 00:22 PMH/Surg Hx/FS Hx/Imm Hx Previously Healthy: Yes Endocrine/Hematology History: Denies: Hx Diabetes Cardiovascular History: Reports: Hx Hypertension Musculoskeletal History: Reports: Hx Back Problems - Lower back, Hx Fibromyalgia Sensory History: Reports: Hx Contacts or Glasses - Glasses Denies: Hx Hearing Aid Opthamlomology History: Reports: Hx Contacts or Glasses - Glasses Psychiatric History: Reports: Hx Anxiety, Hx Depression, Hx Panic Disorder, Hx Post Traumatic Stress Disorder, Hx Inpatient Treatment, Hx Community Mental Health Tx - Rehab, Hx Schizophrenia, Hx Bipolar Disorder, Hx Suicide Attempt, Hx of Violent Episodes Against Others, Hx Substance Abuse Denies: Hx Eating Disorder - Surgical History Surgery Procedure, Year, and Place: tonsilectomy. tubes in ears Infectious Disease History: No Infectious Disease History: Denies: Traveled Outside the [place] in Last 30 Days - Family History Known Family History: Positive: Cardiac Disease, Hypertension, Diabetes, Other - [place] - Social History Occupation: Unemployed Lives: Alone Alcohol Use: Daily Alcohol Amount: 4 tallboy beers/day Substance Use Type: Reports: Cocaine Substance Use Comment - Amount & Last Used: Pt denies recreational drug use Smoking Status (MU): Current Every Day Smoker Type: Cigarettes Amount Used/How Often: less than six a day Length of Time of Smoking/Using Tobacco: 20 Years Have You Smoked in the Last Year: Yes Review of Systems Constitutional: Negative Negative: Fever Eyes: Negative ENT: Negative Cardiovascular: Negative Negative: Chest Pain Respiratory: Negative Negative: Shortness Of Breath Gastrointestinal: Negative Negative: Abdominal Pain Genitourinary: Negative Musculoskeletal: Negative Skin: Negative Neurological: Negative Positive: Depressed, Other - manic, suicidal thoughts with a plan and gestures All Other Systems Reviewed And Are Negative: Yes Physical Exam - Summary Physical Exam Summary: The patient is well-nourished in no acute distress and in no acute pain. The skin is warm and dry and skin color reflects adequate perfusion. HEENT: The head is normocephalic and atraumatic. The pupils are equal and reactive. The conjunctivae are clear and without drainage. Nares are patent and without drainage. Mouth reveals moist mucous membranes and the throat is without erythema and exudate. Neck is supple with full range of motion and non-tender. Respiratory: Chest is non-tender. Lungs are clear to auscultation and breath sounds are symmetrical and equal. Cardiovascular: Hear is regular rate and rhythm. There is no murmur or rub auscultated. There is no peripheral edema and pulses are symmetrical and equal. Abdomen: The abdomen is soft and non-tender. Musculoskeletal: There is no back pain noted. Extremities are non-tender with full range of motion. There is good capillary refill. There is no peripheral edema or calf tenderness elicited. Neurological: Patient is alert and oriented to person, place and time. The patient has symmetrical motor strength in all four extremities. Cranial nerves are grossly intact. Deep tendon reflexes are symmetrical and equal in all four extremities. Psychiatric: The patient is depressed. . Triage Information Reviewed: Yes Vital Signs On Initial Exam: Initial Vitals Temp Pulse Resp BP Pulse Ox 97.9 F 109 18 127/86 98 03/13/17 14:35 03/13/17 14:35 03/13/17 14:35 03/13/17 14:35 03/13/17 14:35 Vital Signs Reviewed: Yes Diagnostics - Vital Signs Vital Signs Temp Pulse Resp BP Pulse Ox 03/13/17 14:37 97.8 F 106 20 127/86 98 03/13/17 14:35 97.9 F 109 18 127/86 98 - Laboratory Lab Results: Lab Results 06/03/13/17 03/13/17 Range/Units 14:54 14:54 15:06 WBC 6.6 (3.5-10.8) 10^3/ul RBC 5.39 (4.0-5.4) 10^6/ul Hgb 16.4 (14.0-18.0) g/dl Hct 49 (42-52) % MCV 90 (80-94) fL MCH 30 (27-31) pg MCHC 34 (31-36) g/dl RDW 13 (10.5-15) % Plt Count 237 (150-450) 10^3/ul MPV 8 (7.4-10.4) um3 Neut % (Auto) 63.9 (38-83) % Lymph % (Auto) 29.6 (25-47) % [place] % (Auto) 4.7 (1-9) % Eos % (Auto) 1.3 (0-6) % Baso % (Auto) 0.5 (0-2) % Absolute Neuts (auto) 4.2 (1.5-7.7) 10^3/ul Absolute Lymphs (auto) 1.9 (1.0-4.8) 10^3/ul Absolute Monos (auto) 0.3 (0-0.8) 10^3/ul Absolute Eos (auto) 0.1 (0-0.6) 10^3/ul Absolute Basos (auto) 0 (0-0.2) 10^3/ul Absolute Nucleated RBC 0 10^3/ul Nucleated RBC % 0.1 Urine Color Straw Urine Appearance Clear Urine pH 6.0 (5-9) Ur Specific Rufe 1.002 L (1.010-1.030) Urine Protein Negative (Negative) Urine Ketones Negative (Negative) Urine Blood Negative (Negative) Urine Nitrate Negative (Negative) Urine Bilirubin Negative (Negative) Urine Urobilinogen Negative (Negative) Ur Leukocyte Esterase Negative (Negative) Urine Glucose Negative (Negative) Urine Opiates Screen None detected (None Detect) Ur Barbiturates Screen None detected (None Detect) Ur Phencyclidine Scrn None detected (None Detect) Ur Amphetamines Screen None detected (None Detect) U Benzodiazepines Scrn None detected (None Detect) Urine Cocaine Screen None detected (None Detect) U Cannabinoids Screen None detected (None Detect) Result Diagrams: 03/13/17 15:06 03/13/17 15:06 Lab Statement: Any lab studies that have been ordered have been reviewed, and results considered in the medical decision making process. Course/Dx - Course Assessment/Plan: MDM: Pt will be signed out awaiting MHE. Pt is medcially cleared at 2200 on 03/13/17. - Differential Dx/Clinical Impression Differential Diagnosis/HQI/PQRI: Positive: Alcohol Intoxication, Depression, Suicidal Ideation Provider Diagnosis: Suicidal ideations, Alcohol intoxication Discharge - Discharge Plan Condition: Stable Disposition: OTHER Discharge Disposition Comment: Pt is signed-out awaiting MHE, cleared at 2200 Referrals: Non Staff,Doctor [Primary Care Provider] - The documentation as recorded by the Baudilio han Claudia accurately reflects the service I personally performed and the decisions made by me, Adán Jeffery MD.
== END 2017-03-14 03:04 ==
LOC: ED 14:30
DX: F10.129 Alcohol abuse with intoxication, unspecified (principal); R45.851 Suicidal ideations; F32.9 Major depressive disorder, single episode, unspecified; F17.210 Nicotine dependence, cigarettes, uncomplicated
CPT/HCPCS: 36415; 80053; 80307; 80320; 80329; 81003; 84443; 85025; 99285; A9270-GY; G0480

== ENCOUNTER 2017-04-29 17:53 | Inpatient (IN) | payer MEDICARE, MEDICAID ==
[2017-04-29] MEDS ORDERED: NS 0.9% 1000 ML* 1,000 ML IV ONE (19:24)
[2017-04-29 19:40] LABS: Hematocrit 49 % (42-52); Hemoglobin 16.6 g/dl (14.0-18.0); Mean Corpuscular HGB Conc 34 g/dl (31-36); Mean Corpuscular Hemoglobin 31 pg (27-31); Mean Corpuscular Volume 92 fL (80-94); Mean Platelet Volume 8 um3 (7.4-10.4); Red Blood Count 5.28 10^6/ul (4.0-5.4); Red Cell Distribution Width 13 % (10.5-15); White Blood Count 8.6 10^3/ul (3.5-10.8)
[2017-04-29 19:49] LABS: ALT 33 U/L (7-52); AST 23 U/L (13-39); Albumin 4.2 g/dL (3.2-5.2); Alkaline Phosphatase 78 U/L (34-104); Anion Gap 6 mmol/L (2-11); BUN/Creatinine Ratio 18.6 (8-20); Blood Urea Nitrogen 18 mg/dL (6-24); CO2 Carbon Dioxide 24 mmol/L (22-32); Calcium 8.9 mg/dL (8.6-10.3); Chloride 108 mmol/L (101-111); Creatine Kinase 82 U/L (10-223); EGFR Non-African American 87.1 (>60); Globulin 2.3 g/dL (2-4); Glucose 104 mg/dL (70-100); Sodium 138 mmol/L (133-145); Total Protein 6.5 g/dL (6.4-8.9)
[2017-04-29 19:51] LABS: Acetaminophen < 15 mcg/mL; Alcohol < 10 mg/dL (<10); Salicylate < 2.50 mg/dL (<30)
[2017-04-29 20:01] LABS: TSH (Thyroid Stimulating Horm) 1.57 mcIU/mL (0.34-5.60)
[2017-04-29] MEDS ORDERED: LORazepam TAB(*) 1 MG PO ONE (20:13)
[2017-04-29] MEDS ORDERED: cloNIDine TAB* 0.1 MG PO ONE (21:06)
[2017-04-29] MEDS ORDERED: Nicotine Inhaler* 10 MG AMP INH PRN (21:08)
[2017-04-29] MEDS ORDERED: Mouth Piece, Nicotine* 1 EACH CARTRIDGE INH ONE (23:00)
[2017-04-30] MEDS ORDERED: LORazepam TAB(*) 1 MG PO ONE ×2 (03:04→11:44)
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
[2017-04-30] MEDS ORDERED: LORazepam TAB(*) 1 MG ONE (11:56)
[2017-04-30 12:56] LABS: Urine Bilirubin Negative (Negative); Urine Glucose Negative (Negative); Urine Nitrite Negative (Negative)
[2017-04-30] MEDS ORDERED: Al Hydrox/Mg Hydrox/Simet LIQ* 30 ML Q2P GAST DISTRESS PO PRN (13:00)
[2017-04-30] MEDS ORDERED: LORazepam IM 0-6 mg for WAM protocol IM SCH (13:00)
[2017-04-30 13:07] LABS: Benzodiazepine Urine Screen None Detected (None Detect)
[2017-04-30] MEDS: Gabapentin CAP(*) 400 MG PO SCH ×2 (13:45→21:32)
[2017-04-30] MEDS: Acetaminophen TAB* 650 MG PO Q4P PAIN PO PRN (13:45)
[2017-04-30] MEDS: Nicotine Inhaler* 10 MG AMP INH PRN (13:45)
--- NOTE | 2017-04-30 13:53 | ED ---
Berhane Charlton Rebecca, scribed for Azar Murray MD on 04/30/17 at 1316 . Progress - Progress Note Progress Note: Pt was signed out from Dr. Segura, pending MHE. Pt was consulted by Dr. Conde, psychiatrist. He decided to admit the pt to his services with a Dx of substance abuse mood disorder and is stable. Course/Dx - Diagnoses Provider Diagnoses: Substance induced mood disorder The documentation as recorded by the Berhane han Rebecca accurately reflects the service I personally performed and the decisions made by , Azar Murray MD.
[2017-04-30] MEDS ORDERED: Mouth Piece, Nicotine* 1 EACH CARTRIDGE INH ONE (14:00)
[2017-04-30] MEDS ORDERED: Nicotine Patch Removal NOTE PATCH OFF SCH (21:00)
[2017-04-30] MEDS: OLANzapine TAB* 10 MG PO SCH (21:32)
[2017-04-30] MEDS: cloNIDine TAB* 0.1 MG PO SCH (21:45)
[2017-05-01] MEDS: Gabapentin CAP(*) 400 MG PO SCH ×3 (07:39→21:47)
[2017-05-01] MEDS: cloNIDine TAB* 0.1 MG PO SCH ×2 (07:39→21:48)
[2017-05-01] MEDS: Multivitamins ADULT TAB DAILY PO SCH (07:39)
[2017-05-01] MEDS: Folic Acid TAB* 1 MG DAILY PO SCH (07:39)
[2017-05-01] MEDS: Thiamine TAB* 100 MG TAB DAILY (@ T+1) PO SCH (07:40)
[2017-05-01] MEDS: LORazepam PO 0-6 for WAM protocol PO SCH (07:47)
[2017-05-01] MEDS: Nicotine Inhaler* 10 MG AMP INH PRN (07:49)
[2017-05-01] MEDS: Mouth Piece, Nicotine* 1 EACH CARTRIDGE ONE (07:58)
[2017-05-01] MEDS ORDERED: Nicotine PATCH 14 MG/24 HR* PATCH TRANSDERM SCH (08:00)
[2017-05-01] MEDS ORDERED: Nicotine PATCH 21 MG/24 HR* PATCH TRANSDERM SCH (08:00)
[2017-05-01] MEDS ORDERED: Nicotine PATCH 7 MG/24 HR* PATCH TRANSDERM SCH (08:00)
[2017-05-01] MEDS ORDERED: Citalopram TAB* 20 MG PO SCH (09:00)
[2017-05-01] MEDS ORDERED: diPHENhydraMINE PO* 50 MG PO PRN (12:05)
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
[2017-05-01] MEDS: OLANzapine TAB* 10 MG PO SCH (21:47)
[2017-05-01] MEDS: busPIRone TAB* 15 MG PO SCH (21:48)
[2017-05-02] MEDS: LORazepam PO 0-6 for WAM protocol PO SCH (06:23)
[2017-05-02] MEDS: Acetaminophen TAB* 650 MG PO Q4P PAIN PO PRN (06:23)
[2017-05-02] MEDS: Nicotine Inhaler* 10 MG AMP INH PRN ×4 (06:25→21:02)
[2017-05-02] MEDS: Thiamine TAB* 100 MG TAB DAILY (@ T+1) PO SCH (09:02)
[2017-05-02] MEDS: Multivitamins ADULT TAB DAILY PO SCH (09:02)
[2017-05-02] MEDS: Gabapentin CAP(*) 400 MG PO SCH ×3 (09:02→20:57)
[2017-05-02] MEDS: Folic Acid TAB* 1 MG DAILY PO SCH (09:03)
[2017-05-02] MEDS: cloNIDine TAB* 0.1 MG PO SCH ×2 (09:03→20:57)
[2017-05-02] MEDS: busPIRone TAB* 15 MG PO SCH ×2 (09:03→21:00)
--- NOTE | 2017-05-02 13:56 | PN ---
Subjective - Subjective Service Type: 05680 Hosp care 15 min low complexity Subjective: Patient has been seclusive to self, lying in bed. He has been present for meals and medications; otherwise refusing programming. He approached writer technical publications and requested librium taper, stating "I feel like shit." He sighed and slammed door when informed of plan to avoid controlled substances. Dry Chain Puller approached patient later to discuss admission. He states his plan while here is to "get ready for rehab." He states he has "thoughts spinning" and wants proper medications. He requests seroquel and thorazine. He stated understanding of information re: risk of multiple antipsychotics. Patient agreed to increase in zyprexa. Patient states alcohol was approx 11am on sunday the . He states understanding of reduced risk for seizures at this time. He agrees to use of naltrexone for prevention of alcohol cravings. Objective - Appearance Appearance: Well Developed/Nourished Dysmorphic Features: Yes Hygiene: Mal-odorous Grooming: Disheveled - Behavior Psychomotor Activities: Normal Exhibits Abnormal Movement: No - Attitude and Relatedness Attitude and Relatedness: Irritable Eye Contact: Good - Speech Quality: Unpressured Latencies: Normal Quantity: Appropriate - Mood Patient's Decription of Mood: "Fine" - Affect Observed Affect: Labile - Thought Process Patient's Thought Process: Circumstantial Thought Content: Yes Passive Wish - in context of medication regimen, No Suicidal Planning, No Homicidal Ideation, No Paranoid Ideation - Sensorium Experiencing Hallucinations: No, Sensorium is Clear Type of Hallucinations: Visual: No, Auditory: No, Command: No - Level of Consciousness Level of Consciousness: Alert Orientation: Yes Intact, Yes Orientated to Time, Yes Orientated to Place, Yes Orientated to Person - Impulse Control Impulse Control: Tenuous - Insight and Judgement Insight and Judgement: Poor - Group Participation Particating in Group Activities: No - Medication Management Medication Management Adherence: Yes Assessment - Assessment Merits Inpatient Hospitalization: For Immediate Safety, For Stabilization, For Discharge Planning Inpatient DSM-IV Dx: alcohol use d/o; cocaine use d/o; substance-induced mood d/ o; PTSD Clinical Impression: Ranjit is a 36yo white male with multiple psychiatric hospitalizations this year. He presents with motivation to pursue substance use rehab but has minimally engaged in recommendations. He is focused on medication regimen and not participating in unit programming. He reports vague SI or thoughts of self harm when he does not meet criteria for ativan on [facility] protocol. His behavior and admission history are suspicious of malingering. He is strongly encouraged to utilize unit phone and computer to research substance treatment options that he is interested in. Plan - Plan Treatment Plan: Name: RANJIT SHELTON Birthdate: 1980 [id number] Discontinue [facility] protocol. Add hydroxyzine 50mg q6h prn anxiety/agitation and increase olanzapine dose to 15mg qhs. Add naltrexone 50mg daily for alcohol abuse d/o. Patient is instructed to identify admission criteria for regional substance use treatment options. Decrease observation to q30 min and allow computer use for discharge planning. Continued Medication Management: Different Medication Medications: Current Medications Acetaminophen (Tylenol Tab*) 650 mg PO Q4H PRN PRN Reason: PAIN Last Admin: 05/02/17 06:23 Dose: 650 mg Al Hydrox/Mg Hydrox/Simethicone (Maalox Plus*) 30 ml PO Q2H PRN PRN Reason: PRN GASTRIC DISTRESS Buspirone HCl (Buspar Tab *) 15 mg PO BID [facility] Last Admin: 05/02/17 09:03 Dose: 15 mg Clonidine HCl (Catapres Tab*) 0.1 mg PO BID [facility] Last Admin: 05/02/17 09:03 Dose: 0.1 mg Diphenhydramine HCl (Benadryl Po*) 50 mg PO BEDTIME PRN PRN Reason: INSOMNIA Folic Acid (Folvite Tab*) 1 mg PO DAILY [facility] Last Admin: 05/02/17 09:03 Dose: 1 mg Gabapentin (Neurontin Cap(*)) 800 mg PO TID [facility] Last Admin: 05/02/17 09:02 Dose: 800 mg Hydroxyzine HCl (Atarax Tab*) 50 mg PO Q6H PRN PRN Reason: AGITATION/ANXIETY Multivitamins/Minerals (Theragran/Minerals Tab*) 1 tab PO DAILY [facility] Last Admin: 05/02/17 09:02 Dose: 1 tab Naltrexone HCl (Naltrexone (Nf)) 50 mg PO DAILY [facility] PRN Reason: Protocol Nicotine (Nicotine Inhaler*) 10 mg INH Q2H PRN PRN Reason: CRAVING Last Admin: 05/02/17 11:07 Dose: 10 mg Olanzapine (Zyprexa Tab*) 15 mg PO BEDTIME [facility] Thiamine HCl (Vitamin B-1 Tab*) 100 mg PO DAILY [facility] Last Admin: 05/02/17 09:02 Dose: 100 mg - Discharge Plan Discharge Plan: Drug/Alcohol Rehab
[2017-05-02] MEDS: hydrOXYzine HCL TAB* 50 MG PO PRN ×2 (14:29→21:00)
[2017-05-02] MEDS: OLANzapine TAB* 10 MG PO SCH (20:58)
[2017-05-03] MEDS: Nicotine Inhaler* 10 MG AMP INH PRN ×3 (07:39→14:14)
[2017-05-03] MEDS: CMCS: Naltrexone (NF) 50 MG TAB PO SCH (08:10)
[2017-05-03] MEDS: Thiamine TAB* 100 MG TAB DAILY (@ T+1) PO SCH (08:10)
[2017-05-03] MEDS: busPIRone TAB* 15 MG PO SCH ×2 (08:10→21:27)
[2017-05-03] MEDS: Gabapentin CAP(*) 400 MG PO SCH ×3 (08:10→21:28)
[2017-05-03] MEDS: Multivitamins ADULT TAB DAILY PO SCH (08:10)
[2017-05-03] MEDS: cloNIDine TAB* 0.1 MG PO SCH ×2 (08:10→21:27)
[2017-05-03] MEDS: Folic Acid TAB* 1 MG DAILY PO SCH (08:10)
[2017-05-03] MEDS: hydrOXYzine HCL TAB* 50 MG PO PRN (11:51)
[2017-05-03] MEDS: Mouth Piece, Nicotine* 1 EACH CARTRIDGE ONE (14:14)
--- NOTE | 2017-05-03 15:22 | PN ---
Subjective - Subjective Subjective: patient is irritable, seclusive to self. He is minimally cooperative with requests from staff to engage in conversation or groups. He states he researched [facility] and "some place in [place] that is a 9 month program." [ these applications were given to him by regional planner.] He is notified that the [facility] program in [place] does not accept certain medications that he is currently taking. He states "what business is it of theirs? that's stupid." He declines offer to taper from those medications. He states he cannot attend groups because he is detoxing from alcohol and drugs. Assurance Senior reminds him that he is no longer physically detoxing and he is expected to utilize unit resources for holistic care of mental health and substance use treatment. Ranjit walks away from field underwriter. He later asks multiple staff to ask to talk to me again. He asks for thorazine for agitation. He states "I don't want to have to freak out." Objective - Appearance Appearance: Well Developed/Nourished Dysmorphic Features: Yes Hygiene: Dirty Grooming: Disheveled - Behavior Psychomotor Activities: Normal Exhibits Abnormal Movement: No - Attitude and Relatedness Attitude and Relatedness: Irritable Eye Contact: Poor - Speech Quality: Unpressured Latencies: Normal Quantity: Terse - Mood Patient's Decription of Mood: declines to answer - Affect Observed Affect: Tense Affect Consistent with: Euthymia - Thought Process Patient's Thought Process: Circumstantial - medications Thought Content: No Passive Wish, No Suicidal Planning, No Homicidal Ideation, No Paranoid Ideation - Sensorium Experiencing Hallucinations: No, Sensorium is Clear Type of Hallucinations: Visual: No, Auditory: No, Command: No - Level of Consciousness Level of Consciousness: Alert Orientation: Yes Intact, Yes Orientated to Time, Yes Orientated to Place, Yes Orientated to Person - Impulse Control Impulse Control: Poor - Insight and Judgement Insight and Judgement: Poor - Group Participation Particating in Group Activities: No - Medication Management Medication Management Adherence: Yes Assessment - Assessment Merits Inpatient Hospitalization: For Immediate Safety, For Stabilization, Pending Safe DC Plan Inpatient DSM-IV Dx: alcohol use d/o; cocaine use d/o; substance-induced mood d/ o; PTSD Clinical Impression: Ranjit is a 36yo white male with multiple psychiatric hospitalizations this year. He presents with motivation to pursue substance use rehab but has minimally engaged in recommendations. He is focused on medication regimen and not participating in unit programming. His behavior and admission history are suspicious of malingering. He is strongly encouraged to utilize unit phone and computer to research substance treatment options that he is interested in. Plan - Plan Treatment Plan: Name: RANJIT SHELTON Birthdate: 1980 [id number] Continue medications as previously prescribed. Encourage participation in programming and discharge planning. May use computer use for discharge planning purposes only. Continued Medication Management: Different Medication Medications: Current Medications Acetaminophen (Tylenol Tab*) 650 mg PO Q4H PRN PRN Reason: PAIN Last Admin: 05/02/17 06:23 Dose: 650 mg Al Hydrox/Mg Hydrox/Simethicone (Maalox Plus*) 30 ml PO Q2H PRN PRN Reason: PRN GASTRIC DISTRESS Last Admin: 05/03/17 13:32 Dose: 30 ml Buspirone HCl (Buspar Tab *) 15 mg PO BID [facility] Last Admin: 05/03/17 08:10 Dose: 15 mg Clonidine HCl (Catapres Tab*) 0.1 mg PO BID [facility] Last Admin: 05/03/17 08:10 Dose: 0.1 mg Diphenhydramine HCl (Benadryl Po*) 50 mg PO BEDTIME PRN PRN Reason: INSOMNIA Folic Acid (Folvite Tab*) 1 mg PO DAILY [facility] Last Admin: 05/03/17 08:10 Dose: 1 mg Gabapentin (Neurontin Cap(*)) 800 mg PO TID [facility] Last Admin: 05/03/17 14:12 Dose: 800 mg Hydroxyzine HCl (Atarax Tab*) 50 mg PO Q6H PRN PRN Reason: AGITATION/ANXIETY Last Admin: 05/03/17 11:51 Dose: 50 mg Multivitamins/Minerals (Theragran/Minerals Tab*) 1 tab PO DAILY [facility] Last Admin: 05/03/17 08:10 Dose: 1 tab Naltrexone HCl (Naltrexone (Nf)) 50 mg PO DAILY [facility] PRN Reason: Protocol Last Admin: 05/03/17 08:10 Dose: 50 mg Nicotine (Nicotine Inhaler*) 10 mg INH Q2H PRN PRN Reason: CRAVING Last Admin: 05/03/17 14:14 Dose: 10 mg Olanzapine (Zyprexa Tab*) 15 mg PO BEDTIME [facility] Last Admin: 05/02/17 20:58 Dose: 15 mg Thiamine HCl (Vitamin B-1 Tab*) 100 mg PO DAILY [facility] Last Admin: 05/03/17 08:10 Dose: 100 mg - Discharge Plan Discharge Plan: Drug/Alcohol Rehab Outpatient Program: [facility]
[2017-05-03] MEDS: OLANzapine TAB* 10 MG PO SCH (21:29)
[2017-05-04] MEDS: Nicotine Inhaler* 10 MG AMP INH PRN ×2 (07:44→09:53)
[2017-05-04] MEDS: Multivitamins ADULT TAB DAILY PO SCH (07:44)
[2017-05-04] MEDS: CMCS: Naltrexone (NF) 50 MG TAB PO SCH (07:45)
[2017-05-04] MEDS: Folic Acid TAB* 1 MG DAILY PO SCH (07:45)
[2017-05-04] MEDS: cloNIDine TAB* 0.1 MG PO SCH (07:45)
[2017-05-04] MEDS: busPIRone TAB* 15 MG PO SCH (07:45)
[2017-05-04] MEDS: Thiamine TAB* 100 MG TAB DAILY (@ T+1) PO SCH (07:45)
[2017-05-04] MEDS: Gabapentin CAP(*) 400 MG PO SCH (07:45)
[2017-05-04 08:17] VITALS: BP 127/86
[2017-05-04] MEDS: hydrOXYzine HCL TAB* 50 MG PO PRN (09:15)
--- NOTE | 2017-05-07 17:53 | DS ---
CC: [facility] ; Dr. Noble DISCHARGE SUMMARY: DATE OF ADMISSION: 04/30/17 DATE OF DISCHARGE: 05/04/17 SUPERVISING PSYCHIATRIST: Dr. Julius Conde. DISCHARGE DIAGNOSES: [place] I: Alcohol use disorder, cocaine use disorder, alcohol-induced depressive disorder, and adjustment disorder. [place] II: Consider antisocial personality disorder. [place] III: C hronic back pain. [place] IV: Stressors related to lack of housing and financial strain. [place] V: 30 u lorrie admission, 45 upon discharge. CONDITION AT TIME OF DISCHARGE: Improved. The patient denies suicidal ideation. He denies access t o weapons or firearms. He is no longer detoxing from alcohol or cocaine. He is motivated for recov fabienne and has completed some applications to rehab that menu planner provided to him. He reports that he can stay at his friends' house in [place]. He also is knowledgeable about whereabouts of [facility] and how to apply for emergency housing. He states he is willing to stay at the homeless assisted if necessary. Ranjit reports his motivation for recovery is to improve his life situation and to gain housing. MENTAL STATUS EXAM: The patient is moderate built, tall, white male. He is dressed in his own clot marvin. Adequate ADLs. He is cooperative with interview. He is alert and oriented x3. Full affect and good eye contact. His speech is soft and articulate. His concentration is good. His memory is good. He describes his mood as "okay." Thought process is circumstantial in regards to applicatio n for substance use rehab. Thought content negative for SI, SIB urges, HI or . Insight is fair. Judgment is fair. Fund of knowledge is adequate. Instructions given to the patient. MEDICATIONS: Prescriptions were electronically scripted to [facility] in [place]. 1. Gabapentin 800 mg p.o. t.i.d. 2. Naltrexone 50 mg p.o. daily. 3. Olanzapine 15 mg p.o. at bedtime. 4. Buspirone 15 mg p.o. b.i.d. 5. Clonidine 0.1 mg p.o. b.i.d. 6. Hydroxyzine 50 mg p.o. q. 6 hours p.r.n. anxiety and agitation. He received 1 week prescription for all the above. DIET: Regular. ACTIVITY: Ambulation as tolerated. The patient declined tobacco cessation assistance and there are no pending labs or diagnostic studie s at the time of discharge. He is instructed to follow up with [facility] in [facility] and he has an appoint ment on 05/08/17. DISCHARGE PLANNING: Contacted [facility], and due to prior experience, he is not appropriate for mental health services and can get his prescription at the [facility]. He is also informed of applications that have been submitted to [employer] and [facility] [place] in [place]. HOSPITAL COURSE: A. reason for admission: The patient presented to the Emergency Department [place] requesting a mental health evaluation. He expressed suicidal ideation with a plan to shoot him self. He was requesting inpatient mental health care and referrals to substance use rehab agencies. He had been noncompliant with his outpatient medications and appointments and had been partaking i n alcohol and cocaine use. B. Psychiatric treatment rendered: The patient was admitted to the adult behavioral unit on volun tary status. He was placed on 15-minute checks for safety. The WAM protocol was initiated for alco hol withdrawal monitoring. Initially outpatient medications were resumed including Celexa, gabapent in, and Zyprexa. While on the unit, the patient complained of severe agitation and anxiety. He aliya nded Librium taper and since the WAM protocol was not sufficient in alcohol withdrawal coverage, it was noted that prior to vital signs been taken for WAM protocol, the patient would perform physical activities in his bathroom likely in the hopes to increase his WAM score. The patient was encourage d to utilize the computer and the phone on the unit to identify admission criteria for various subst ance use treatment facilities that he was interested in. While on the unit, the patient was seclusi ve to his room and his bed. He was awake for meals and medication time. Did not participate in nathen ups. Throughout his stay, staff and this law writer strongly encouraged him to participate in programmi ng in order to gain full benefit of admission and in order to improve the referral process to substa nce use treatment facilities. The patient was no longer in danger of withdrawal from alcohol sympto ms as it had been 4 plus days since he had alcohol, so the WAM protocol was discontinued. He contin ued to ask law writer for use of benzos and these requests were denied in order to pursue recovery in bstance use treatment facilities. As stated above, Ranjit was referred to substance use treatment [facility] and was appropriate for discharge as he was no longer withdrawing from substances. He stated ag reement to pursue referrals from the outpatient setting. He denies suicidal ideation. He was safe on all checks. He reported that housing was not problematic. The patient was discharged by nursing staff and he was given cab fare to his home. HÉCTOR CHOW, WON [id number]/[facility] #: [id number]
== END 2017-05-04 11:35 | disposition home or self-care (01) | DRG 897 ==
LOC: ED 17:53 → BSU 04-30 12:59
PROVIDERS: ADMIT Psychiatry & Neurology Psychiatry; ATTEND Psychiatry & Neurology Psychiatry
DX: F10.14 Alcohol abuse with alcohol-induced mood disorder (principal); F14.14 Cocaine abuse with cocaine-induced mood disorder; R45.851 Suicidal ideations; F41.1 Generalized anxiety disorder; G89.29 Other chronic pain; M54.9 Dorsalgia, unspecified; I10 Essential (primary) hypertension; M79.7 Fibromyalgia; F41.0 Panic disorder [episodic paroxysmal anxiety]; F43.10 Post-traumatic stress disorder, unspecified; F20.9 Schizophrenia, unspecified; F31.9 Bipolar disorder, unspecified; F17.210 Nicotine dependence, cigarettes, uncomplicated; R40.2412 Glasgow coma scale score 13-15, at arrival to emergency department; Z91.5 Personal history of self-harm; Z88.8 Allergy status to other drugs, medicaments and biological substances; Z81.1 Family history of alcohol abuse and dependence; Z81.8 Family history of other mental and behavioral disorders; Z80.9 Family history of malignant neoplasm, unspecified; Z56.0 Unemployment, unspecified; Z82.49 Family history of ischemic heart disease and other diseases of the circulatory system; Z83.3 Family history of diabetes mellitus
CPT/HCPCS: 36415; 80053; 80307; 80320; 80329; 81003; 82550; 83605; 84443; 84484; 85025; 85379; 93005; 99222; 99231; 99238; 99406; A9270-GY; G0480

== ENCOUNTER 2017-11-26 19:18 | Inpatient (IN) | payer MEDICARE, MEDICAID ==
[2017-11-26] MEDS ORDERED: ALPRAZolam TAB* 0.5 MG PO ONE (20:37)
[2017-11-26 21:00] LABS: ABS Basophils 0 10^3/ul (0-0.2); ABS Eosinophils 0 10^3/ul (0-0.6); ABS Lymphocytes 1.2 10^3/ul (1.0-4.8); ABS Monocytes 0.3 10^3/ul (0-0.8); ABS Neutrophils 6.2 10^3/ul (1.5-7.7); ABS Nucleated RBC 0 10^3/ul; Eosinophil % 0.4 % (0-6); Hematocrit 46 % (42-52); Hemoglobin 16.1 g/dl (14.0-18.0); Lymphocyte % 15.3 % (25-47); Mean Corpuscular HGB Conc 35 g/dl (31-36); Mean Corpuscular Hemoglobin 31 pg (27-31); Mean Corpuscular Volume 90 fL (80-94); Mean Platelet Volume 8 um3 (7.4-10.4); Nucleated Red Blood Cells % 0; Platelet Count 236 10^3/ul (150-450); Red Blood Count 5.14 10^6/ul (4.0-5.4); Red Cell Distribution Width 12 % (10.5-15); White Blood Count 7.7 10^3/ul (3.5-10.8)
[2017-11-26 21:01] LABS: Urine Appearance Clear; Urine Blood Negative (Negative); Urine Color Yellow; Urine Ketones Trace (Negative); Urine Protein Negative (Negative); Urine Urobilinogen Negative (Negative)
[2017-11-26 21:14] LABS: EGFR Non-African American 88.7 (>60)
[2017-11-26] MEDS ORDERED: LORazepam TAB(*) 1 MG PO ONE (22:52)
[2017-11-26] MEDS ORDERED: Nicotine PATCH 21 MG/24 HR* PATCH TRANSDERM ONE (22:53)
[2017-11-26] MEDS ORDERED: LORazepam TAB(*) 1 MG ONE (22:55)
[2017-11-26] MEDS ORDERED: Nicotine PATCH 21 MG/24 HR* PATCH ONE (22:56)
[2017-11-27] MEDS ORDERED: Mouth Piece, Nicotine* 1 EACH CARTRIDGE INH SCH (00:31)
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
[2017-11-27] MEDS: hydrOXYzine HCL TAB* 50 MG PO PRN ×3 (01:14→21:33)
[2017-11-27] MEDS: Nicotine Inhaler* 10 MG AMP INH PRN ×4 (01:20→23:55)
[2017-11-27] MEDS: Nicotine PATCH 21 MG/24 HR* PATCH TRANSDERM SCH (12:08)
[2017-11-27] MEDS: Vitamin THERAPEUTIC TAB PO SCH (12:09)
[2017-11-27] MEDS: Acetaminophen TAB* 325 MG PO PRN (12:11)
[2017-11-27] MEDS ORDERED: Haloperidol TAB* 5 MG PO PRN (15:25)
[2017-11-27] MEDS: Paliperidone ER TAB* 3 MG TAB.ER PO SCH (16:20)
[2017-11-27] MEDS: Gabapentin CAP(*) 300 MG PO SCH ×2 (16:20→21:12)
[2017-11-27] MEDS: diPHENhydraMINE PO* 50 MG PO PRN (21:32)
[2017-11-27] MEDS: Nicotine Patch Removal NOTE PATCH OFF SCH (21:34)
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
[2017-11-28] MEDS: Vitamin THERAPEUTIC TAB PO SCH (09:46)
[2017-11-28] MEDS: Paliperidone ER TAB* 3 MG TAB.ER PO SCH (09:46)
[2017-11-28] MEDS: Gabapentin CAP(*) 300 MG PO SCH ×3 (09:46→20:42)
[2017-11-28] MEDS: Nicotine PATCH 21 MG/24 HR* PATCH TRANSDERM SCH (09:47)
[2017-11-28] MEDS: Nicotine Inhaler* 10 MG AMP INH PRN ×5 (11:49→21:39)
[2017-11-28] MEDS: Acetaminophen TAB* 325 MG PO PRN (14:06)
--- NOTE | 2017-11-28 14:44 | PN ---
Subjective - Subjective Service Type: 22678 Hosp care 15 min low complexity Subjective: Patient lying in bed upon approach, easy to rouse. Thus far, he has only been out of his bed for meals and medications. He reports feeling "groggy" due to yesterday's dose of Invega and refused this morning. Patient tells typewriter assembler that typically antipsychotic medications make him feel "weird." He completed the [facility] packet in order for SW to send referrals to inpatient facilities. Patient is receptive to suggestions to participate in unit routines. Objective - Appearance Appearance: Well Developed/Nourished Dysmorphic Features: Yes Hygiene: Dirty Grooming: Disheveled - Behavior Psychomotor Activities: Normal Exhibits Abnormal Movement: No - Attitude and Relatedness Attitude and Relatedness: Superficially Cooperative Eye Contact: Poor - Speech Quality: Unpressured Latencies: Normal Quantity: Appropriate - Mood Patient's Decription of Mood: "depressed" - Affect Observed Affect: Depressed Affect Consistent with: Dysphoria - Thought Process Patient's Thought Process: Circumstantial Thought Content: Yes Passive Wish, Yes Suicidal Planning, No Homicidal Ideation, No Paranoid Ideation - Sensorium Experiencing Hallucinations: Yes Type of Hallucinations: Visual: Yes, Auditory: Yes, Command: Yes - Level of Consciousness Level of Consciousness: Alert Orientation: Yes Intact, Yes Orientated to Time, Yes Orientated to Place, Yes Orientated to Person - Impulse Control Impulse Control: Poor - Insight and Judgement Insight and Judgement: Poor - Group Participation Particating in Group Activities: No - Medication Management Medication Management Adherence: Yes Assessment - Assessment Merits Inpatient Hospitalization: For Immediate Safety, For Stabilization Inpatient DSM-V Dx: F10.94 Clinical Impression: 37yo male, undomiciled, disabled with history of trauma and substance use. He presented to ED with reports of suicidal ideation with a plan. 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 He merits hospitalization for immediate safety and stabilization. Plan - Plan Treatment Plan: Name: YOVANA SHELTON Birthdate: 1980 [id number] continue acute intensive psychiatric treatment. encourage group and milieu attendance. refer patient to substance use treatment facilities. Continued Medication Management: Start Medication Medications: Current Medications Acetaminophen (Tylenol Tab*) 650 mg PO Q4H PRN PRN Reason: PAIN or TEMP > 101 F Last Admin: 11/28/17 14:06 Dose: 650 mg Al Hydrox/Mg Hydrox/Simethicone (Maalox Plus*) 30 ml PO Q4H PRN PRN Reason: INDIGESTION Device (Nicotine Mouth Piece*) 1 each INH .[facility] Diphenhydramine HCl (Benadryl Po*) 50 mg PO Q6H PRN PRN Reason: INSOMNIA/ITCHINESS Last Admin: 11/27/17 21:32 Dose: 50 mg Gabapentin (Neurontin Cap(*)) 300 mg PO TID [facility] Last Admin: 11/28/17 14:05 Dose: 300 mg Haloperidol (Haldol Tab*) 5 mg PO Q6H PRN PRN Reason: AGITATION Last Admin: 11/28/17 00:54 Dose: 5 mg Hydroxyzine HCl (Atarax Tab*) 50 mg PO Q6H PRN PRN Reason: ANXIETY/ AGITATION Last Admin: 11/27/17 21:33 Dose: 50 mg Multivitamins (Theragran Tab*) 1 tab PO DAILY [facility] Last Admin: 11/28/17 09:46 Dose: 1 tab Nicotine (Nicotine Inhaler*) 10 mg INH Q2H PRN PRN Reason: CRAVING Last Admin: 11/28/17 14:05 Dose: 10 mg Nicotine (Nicotine Patch 21 Mg/24 Hr*) 1 patch TRANSDERM DAILY [facility] Last Admin: 11/28/17 09:47 Dose: 1 patch Nicotine Polacrilex (Nicotine Gum*) 2 mg PO Q2H PRN PRN Reason: CRAVING Paliperidone (Invega Er Tab*) 3 mg PO BEDTIME [facility] Pharmacy Profile Note (Nicotine Patch Removal Note*) 1 note PATCH OFF [address] [facility] Last Admin: 11/27/17 21:34 Dose: 1 note - Discharge Plan Discharge Plan: Drug/Alcohol Rehab
[2017-11-28] MEDS: Nicotine GUM* 2 MG PO PRN ×2 (15:00→20:43)
[2017-11-28] MEDS: hydrOXYzine HCL TAB* 50 MG PO PRN ×2 (15:44→21:15)
[2017-11-28] MEDS: diPHENhydraMINE PO* 50 MG PO PRN (20:42)
[2017-11-28] MEDS ORDERED: Paliperidone ER TAB* 3 MG TAB.ER PO SCH (21:00)
[2017-11-28] MEDS: Nicotine Patch Removal NOTE PATCH OFF SCH (21:15)
[2017-11-29] MEDS: Acetaminophen TAB* 325 MG PO PRN (08:25)
[2017-11-29] MEDS: Nicotine PATCH 21 MG/24 HR* PATCH TRANSDERM SCH (08:26)
[2017-11-29] MEDS: Vitamin THERAPEUTIC TAB PO SCH (08:26)
[2017-11-29] MEDS: Gabapentin CAP(*) 300 MG PO SCH ×3 (08:26→20:20)
[2017-11-29] MEDS: Nicotine Inhaler* 10 MG AMP INH PRN ×7 (08:27→22:31)
[2017-11-29] MEDS: Nicotine GUM* 2 MG PO PRN ×5 (08:28→23:27)
--- NOTE | 2017-11-29 10:24 | PN ---
<HarriettZaira rehman - Last Filed: 11/29/17 10:18> Subjective - Subjective Service Type: 53380 Hosp care 15 min low complexity Subjective: He is found in bed sleeping, arouses easily. Reports he is motivated for drug and alcohol rehabilitation. States he was sober for 1 year aprox. 10 years ago, talks about a supported living program he was in living in [place], where he has family. His goal is to get sober, deal with depression and eventually gain employment. Encouraged to participate in groups. Objective - Appearance Appearance: Well Developed/Nourished Dysmorphic Features: Yes Hygiene: Mal-odorous Grooming: Disheveled - Behavior Psychomotor Activities: Normal Exhibits Abnormal Movement: No - Attitude and Relatedness Attitude and Relatedness: Superficially Cooperative Eye Contact: Fair - Speech Quality: Unpressured Latencies: Normal Quantity: Appropriate - Mood Patient's Decription of Mood: "depressed" - Affect Observed Affect: Constricted Affect Consistent with: Dysphoria - Thought Process Patient's Thought Process: Coherent, Goal Directed Thought Content: Yes Passive Wish, No Suicidal Planning, No Homicidal Ideation, No Paranoid Ideation - Sensorium Experiencing Hallucinations: No, Sensorium is Clear Type of Hallucinations: Visual: No, Auditory: No, Command: No - Level of Consciousness Level of Consciousness: Lethargic Orientation: Yes Intact, Yes Orientated to Time, Yes Orientated to Place, Yes Orientated to Person - Impulse Control Impulse Control: Impaired - Insight and Judgement Insight and Judgement: Poor - Group Participation Particating in Group Activities: Yes - Medication Management Medication Management Adherence: Yes - agreeable to hs Invega ER Assessment - Assessment Merits Inpatient Hospitalization: Consolidate Improvements, Pending Safe DC Plan Inpatient DSM-V Dx: F10.94 Clinical Impression: 37 yo, male, undomiciled, disabled. History of trauma and substance abuse. He presented to ED with suicidal ideation and a plan. 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 Merits continued hospitalization for immediate safety and safe discharge plan. Plan - Plan Treatment Plan: Name: YOVANA SHELTON Birthdate: 1980 [id number] Medications: Current Medications Acetaminophen (Tylenol Tab*) 650 mg PO Q4H PRN PRN Reason: PAIN or TEMP > 101 F Last Admin: 11/29/17 08:25 Dose: 650 mg Al Hydrox/Mg Hydrox/Simethicone (Maalox Plus*) 30 ml PO Q4H PRN PRN Reason: INDIGESTION Device (Nicotine Mouth Piece*) 1 each INH [facility] Diphenhydramine HCl (Benadryl Po*) 50 mg PO Q6H PRN PRN Reason: INSOMNIA/ITCHINESS Last Admin: 11/28/17 20:42 Dose: 50 mg Gabapentin (Neurontin Cap(*)) 300 mg PO TID [facility] Last Admin: 11/29/17 08:26 Dose: 300 mg Haloperidol (Haldol Tab*) 5 mg PO Q6H PRN PRN Reason: AGITATION Last Admin: 11/28/17 00:54 Dose: 5 mg Hydroxyzine HCl (Atarax Tab*) 50 mg PO Q6H PRN PRN Reason: ANXIETY/ AGITATION Last Admin: 11/28/17 21:15 Dose: 50 mg Multivitamins (Theragran Tab*) 1 tab PO DAILY [facility] Last Admin: 11/29/17 08:26 Dose: 1 tab Nicotine (Nicotine Inhaler*) 10 mg INH Q2H PRN PRN Reason: CRAVING Last Admin: 11/29/17 08:27 Dose: 10 mg Nicotine (Nicotine Patch 21 Mg/24 Hr*) 1 patch TRANSDERM DAILY [facility] Last Admin: 11/29/17 08:26 Dose: 1 patch Nicotine Polacrilex (Nicotine Gum*) 2 mg PO Q2H PRN PRN Reason: CRAVING Last Admin: 11/29/17 08:28 Dose: 2 mg Paliperidone (Invega Er Tab*) 3 mg PO BEDTIME [facility] Last Admin: 11/28/17 20:41 Dose: 3 mg Pharmacy Profile Note (Nicotine Patch Removal Note*) 1 note PATCH OFF [address] [facility] Last Admin: 11/28/17 21:15 Dose: 1 note <Joyce Nicholson - Last Filed: 11/29/17 10:40> Subjective - Subjective Subjective: above note reviewed and discussed with studentBhavesh [email or web address] Plan - Plan Treatment Plan: Name: YOVANA SHELTON Birthdate: 1980 [id number] continue acute intensive psychiatric treatment. titrate dose of paliperidone. encourage increased participation in programming. decrease to q30min observation. Continued Medication Management: Start Medication Medications: Current Medications Acetaminophen (Tylenol Tab*) 650 mg PO Q4H PRN PRN Reason: PAIN or TEMP > 101 F Last Admin: 11/29/17 08:25 Dose: 650 mg Al Hydrox/Mg Hydrox/Simethicone (Maalox Plus*) 30 ml PO Q4H PRN PRN Reason: INDIGESTION Device (Nicotine Mouth Piece*) 1 each INH .[facility] Diphenhydramine HCl (Benadryl Po*) 50 mg PO Q6H PRN PRN Reason: INSOMNIA/ITCHINESS Last Admin: 11/28/17 20:42 Dose: 50 mg Gabapentin (Neurontin Cap(*)) 300 mg PO TID [facility] Last Admin: 11/29/17 08:26 Dose: 300 mg Haloperidol (Haldol Tab*) 5 mg PO Q6H PRN PRN Reason: AGITATION Last Admin: 11/28/17 00:54 Dose: 5 mg Hydroxyzine HCl (Atarax Tab*) 50 mg PO Q6H PRN PRN Reason: ANXIETY/ AGITATION Last Admin: 11/28/17 21:15 Dose: 50 mg Multivitamins (Theragran Tab*) 1 tab PO DAILY [facility] Last Admin: 11/29/17 08:26 Dose: 1 tab Nicotine (Nicotine Inhaler*) 10 mg INH Q2H PRN PRN Reason: CRAVING Last Admin: 11/29/17 08:27 Dose: 10 mg Nicotine (Nicotine Patch 21 Mg/24 Hr*) 1 patch TRANSDERM DAILY [facility] Last Admin: 11/29/17 08:26 Dose: 1 patch Nicotine Polacrilex (Nicotine Gum*) 2 mg PO Q2H PRN PRN Reason: CRAVING Last Admin: 11/29/17 08:28 Dose: 2 mg Paliperidone (Invega Er Tab*) 6 mg PO BEDTIME [facility] Pharmacy Profile Note (Nicotine Patch Removal Note*) 1 note PATCH OFF [address] [facility] Last Admin: 11/28/17 21:15 Dose: 1 note - Discharge Plan Discharge Plan: Drug/Alcohol Rehab
[2017-11-29] MEDS: hydrOXYzine HCL TAB* 50 MG PO PRN ×3 (11:47→23:25)
--- NOTE | 2017-11-29 11:48 | PN ---
[facility]: Group Therapy Note - Service Type Service Type: [id number] Group Psychotherapy - Cognitive Behavioral Group Therapy ( CBT):Patient was attentive and participatory in CBT programming this morning, and remained in good behavioral control. Patient expressed positive insights regarding relevant treatment interventions and goals.
--- NOTE | 2017-11-29 16:47 | PN ---
MHU: Group Therapy Note - Service Type Service Type: [id number] Group Psychotherapy - Medication Education Group: Patient was attentive and participatory in group, and remained in good behavioral control. Patient expressed positive insights regarding relevant treatment interventions. Patient stated understanding of material discussed and had appropriate questions.
[2017-11-29] MEDS: Paliperidone ER TAB* 3 MG TAB.ER PO SCH (20:20)
[2017-11-29] MEDS: diPHENhydraMINE PO* 50 MG PO PRN (20:25)
[2017-11-29] MEDS: Nicotine Patch Removal NOTE PATCH OFF SCH (22:21)
[2017-11-29] MEDS: Al Hydrox/Mg Hydrox/Simet LIQ* 30 ML UDC PO PRN (23:24)
[2017-11-30] MEDS: Nicotine Inhaler* 10 MG AMP INH PRN ×5 (01:00→20:24)
[2017-11-30] MEDS: diPHENhydraMINE PO* 50 MG PO PRN ×2 (01:45→12:53)
[2017-11-30] MEDS: Nicotine PATCH 21 MG/24 HR* PATCH TRANSDERM SCH (09:04)
[2017-11-30] MEDS: Gabapentin CAP(*) 300 MG PO SCH ×3 (09:04→20:24)
[2017-11-30] MEDS: Vitamin THERAPEUTIC TAB PO SCH (09:04)
[2017-11-30] MEDS: Acetaminophen TAB* 325 MG PO PRN (11:11)
[2017-11-30] MEDS: hydrOXYzine HCL TAB* 50 MG PO PRN ×2 (11:11→18:39)
--- NOTE | 2017-11-30 11:44 | PN ---
MHU: Group Therapy Note - Service Type Service Type: [id number] Group Psychotherapy - Cognitive Behavioral Group Therapy ( CBT):Patient was attentive and participatory in CBT programming this morning, and remained in good behavioral control. Patient expressed positive insights regarding relevant treatment interventions and goals.
[2017-11-30] MEDS: Nicotine GUM* 2 MG PO PRN ×2 (12:53→18:39)
[2017-11-30] MEDS ORDERED: PPD test dose* 5 TU/0.1 ML TEST (*USE PPD ORDER SET*) INTRADERM SCH (15:00)
--- NOTE | 2017-11-30 15:53 | PN ---
<AubreyZaira - Last Filed: 11/30/17 15:48> Subjective - Subjective Service Type: [id number] Hosp care 15 min low complexity Subjective: Patient asleep, arouses easily. States he did not sleep well last night until he took a Benadryl 50mg, which helped. Reports he is anxious to know if he will be accepted by [facility] inpatient rehab. He has used Trazadone for sleep in the past and is agreeable to taking it for sleep.Made aware he will have a PPD placed per requirement of [facility] inpatient. Objective - Appearance Appearance: Thin Framed Dysmorphic Features: No Hygiene: Normal Grooming: Fairly Well Kept - Behavior Psychomotor Activities: Abnormal-Decreased Exhibits Abnormal Movement: Yes - Attitude and Relatedness Attitude and Relatedness: Well Related Eye Contact: Fair - Speech Quality: Unpressured Latencies: Normal Quantity: Appropriate - Mood Patient's Decription of Mood: "Good" - Affect Observed Affect: Depressed Affect Consistent with: Dysphoria - Thought Process Patient's Thought Process: Coherent, Goal Directed Thought Content: No Passive Wish, No Suicidal Planning, No Homicidal Ideation, No Paranoid Ideation - Sensorium Experiencing Hallucinations: No, Sensorium is Clear Type of Hallucinations: Visual: No, Auditory: No, Command: No - Level of Consciousness Level of Consciousness: Alert Orientation: Yes Intact, Yes Orientated to Time, Yes Orientated to Place, Yes Orientated to Person - Impulse Control Impulse Control: Tenuous - Insight and Judgement Insight and Judgement: Fair - Group Participation Particating in Group Activities: Yes - Medication Management Medication Management Adherence: Yes Assessment - Assessment Merits Inpatient Hospitalization: Consolidate Improvements, For Discharge Planning Inpatient DSM-V Dx: F10.94 Clinical Impression: 37 yo, male, undomiciled, disabled. History of trauma and substance abuse. He presented to ED with suicidal ideation and a plan. [facility]. Trial Trazodone prn hs. Merits continued hospitalization for consolidation of improvements and discharge planning. Plan - Plan Treatment Plan: Name: YOVANA SHELTON Birthdate: 1980 [id number] Medications: Current Medications Acetaminophen (Tylenol Tab*) 650 mg PO Q4H PRN PRN Reason: PAIN or TEMP > 101 F Last Admin: 11/30/17 11:11 Dose: 650 mg Al Hydrox/Mg Hydrox/Simethicone (Maalox Plus*) 30 ml PO Q4H PRN PRN Reason: INDIGESTION Last Admin: 11/29/17 23:24 Dose: 30 ml Device (Nicotine Mouth Piece*) 1 each INH .[facility] Diphenhydramine HCl (Benadryl Po*) 50 mg PO Q6H PRN PRN Reason: INSOMNIA/ITCHINESS Last Admin: 11/30/17 12:53 Dose: 50 mg Gabapentin (Neurontin Cap(*)) 300 mg PO TID [facility] Last Admin: 11/30/17 12:53 Dose: 300 mg Haloperidol (Haldol Tab*) 5 mg PO Q6H PRN PRN Reason: AGITATION Last Admin: 11/28/17 00:54 Dose: 5 mg Hydroxyzine HCl (Atarax Tab*) 50 mg PO Q6H PRN PRN Reason: ANXIETY/ AGITATION Last Admin: 11/30/17 11:11 Dose: 50 mg Multivitamins (Theragran Tab*) 1 tab PO DAILY [facility] Last Admin: 11/30/17 09:04 Dose: 1 tab Nicotine (Nicotine Inhaler*) 10 mg INH Q2H PRN PRN Reason: CRAVING Last Admin: 11/30/17 12:53 Dose: 10 mg Nicotine (Nicotine Patch 21 Mg/24 Hr*) 1 patch TRANSDERM DAILY [facility] Last Admin: 11/30/17 09:04 Dose: 1 patch Nicotine Polacrilex (Nicotine Gum*) 2 mg PO Q2H PRN PRN Reason: CRAVING Last Admin: 11/30/17 12:53 Dose: 2 mg Paliperidone (Invega Er Tab*) 6 mg PO BEDTIME [facility] Last Admin: 11/29/17 20:20 Dose: 6 mg Pharmacy Profile Note (Nicotine Patch Removal Note*) 1 note PATCH OFF 2100 [facility] Last Admin: 11/29/17 22:21 Dose: 1 note Trazodone HCl (Desyrel Tab*) 50 mg PO BEDTIME [facility] Tuberculin PPD (Tuberculin Ppd Test Dose*) 5 tu INTRADERM ONCE [facility] Stop: 11/30/17 23:59 - Discharge Plan Discharge Plan: Drug/Alcohol Rehab - Inpatient, application to [facility] inpatient <Joyce Nicholson - Last Filed: 12/03/17 08:53> Plan - Plan Treatment Plan: Name: YOVANA SHELTON Birthdate: 1980 [id number] continue acute intensive psychiatric treatment. add trazodone for sleep and depressed mood. awaiting acceptance at inpatient substance use facility. Continued Medication Management: Start Medication Medications: Current Medications Acetaminophen (Tylenol Tab*) 650 mg PO Q4H PRN PRN Reason: PAIN or TEMP > 101 F Last Admin: 12/01/17 17:23 Dose: 650 mg Al Hydrox/Mg Hydrox/Simethicone (Maalox Plus*) 30 ml PO Q4H PRN PRN Reason: INDIGESTION Last Admin: 11/30/17 18:42 Dose: 30 ml Device (Nicotine Mouth Piece*) 1 each INH .[facility] Diphenhydramine HCl (Benadryl Po*) 50 mg PO Q6H PRN PRN Reason: INSOMNIA/ITCHINESS Last Admin: 12/01/17 21:51 Dose: 50 mg Gabapentin (Neurontin Cap(*)) 300 mg PO TID [facility] Last Admin: 12/03/17 08:27 Dose: 300 mg Haloperidol (Haldol Tab*) 5 mg PO Q6H PRN PRN Reason: AGITATION Last Admin: 11/28/17 00:54 Dose: 5 mg Hydroxyzine HCl (Atarax Tab*) 50 mg PO Q6H PRN PRN Reason: ANXIETY/ AGITATION Last Admin: 12/03/17 08:28 Dose: 50 mg Multivitamins (Theragran Tab*) 1 tab PO DAILY [facility] Last Admin: 12/03/17 08:28 Dose: 1 tab Nicotine (Nicotine Inhaler*) 10 mg INH Q2H PRN PRN Reason: CRAVING Last Admin: 12/03/17 08:29 Dose: 10 mg Nicotine (Nicotine Patch 21 Mg/24 Hr*) 1 patch TRANSDERM DAILY [facility] Last Admin: 12/03/17 08:28 Dose: 1 patch Nicotine Polacrilex (Nicotine Gum*) 2 mg PO Q2H PRN PRN Reason: CRAVING Last Admin: 12/02/17 08:51 Dose: 2 mg Paliperidone (Invega Er Tab*) 6 mg PO BEDTIME [facility] Last Admin: 12/02/17 20:42 Dose: Not Given Pharmacy Profile Note (Nicotine Patch Removal Note*) 1 note PATCH OFF 2100 [facility] Last Admin: 12/02/17 22:38 Dose: 1 note Trazodone HCl (Desyrel Tab*) 50 mg PO BEDTIME [facility] Last Admin: 12/02/17 20:42 Dose: 50 mg
[2017-11-30] MEDS: Al Hydrox/Mg Hydrox/Simet LIQ* 30 ML UDC PO PRN (18:42)
[2017-11-30] MEDS: Paliperidone ER TAB* 3 MG TAB.ER PO SCH (20:24)
[2017-11-30] MEDS: Nicotine Patch Removal NOTE PATCH OFF SCH (20:24)
[2017-11-30] MEDS: traZODone TAB* 50 MG TAB PO SCH (20:25)
[2017-12-01] MEDS: Nicotine Inhaler* 10 MG AMP INH PRN ×5 (00:15→23:20)
[2017-12-01] MEDS: diPHENhydraMINE PO* 50 MG PO PRN ×2 (00:45→21:51)
[2017-12-01] MEDS: hydrOXYzine HCL TAB* 50 MG PO PRN ×3 (00:45→23:55)
[2017-12-01] MEDS: Nicotine PATCH 21 MG/24 HR* PATCH TRANSDERM SCH (10:29)
[2017-12-01] MEDS: Vitamin THERAPEUTIC TAB PO SCH (10:29)
[2017-12-01] MEDS: Gabapentin CAP(*) 300 MG PO SCH ×4 (10:29→21:49)
[2017-12-01] MEDS: Acetaminophen TAB* 325 MG PO PRN (17:23)
[2017-12-01] MEDS: Nicotine GUM* 2 MG PO PRN ×2 (20:11→23:55)
[2017-12-01] MEDS: traZODone TAB* 50 MG TAB PO SCH (21:49)
[2017-12-01] MEDS: Paliperidone ER TAB* 3 MG TAB.ER PO SCH (21:52)
[2017-12-01] MEDS: Nicotine Patch Removal NOTE PATCH OFF SCH (21:52)
[2017-12-02] MEDS: Nicotine Inhaler* 10 MG AMP INH PRN ×7 (01:25→20:43)
[2017-12-02] MEDS: hydrOXYzine HCL TAB* 50 MG PO PRN ×3 (06:38→18:27)
[2017-12-02] MEDS: Gabapentin CAP(*) 300 MG PO SCH ×3 (08:14→20:42)
[2017-12-02] MEDS: Vitamin THERAPEUTIC TAB PO SCH (08:15)
[2017-12-02] MEDS: Nicotine PATCH 21 MG/24 HR* PATCH TRANSDERM SCH (08:15)
[2017-12-02] MEDS: Nicotine GUM* 2 MG PO PRN (08:51)
[2017-12-02] MEDS: Paliperidone ER TAB* 3 MG TAB.ER PO SCH (20:42)
[2017-12-02] MEDS: traZODone TAB* 50 MG TAB PO SCH (20:42)
[2017-12-02] MEDS: Nicotine Patch Removal NOTE PATCH OFF SCH (22:38)
[2017-12-03] MEDS: Gabapentin CAP(*) 300 MG PO SCH ×3 (08:27→21:05)
[2017-12-03] MEDS: Nicotine PATCH 21 MG/24 HR* PATCH TRANSDERM SCH (08:28)
[2017-12-03] MEDS: hydrOXYzine HCL TAB* 50 MG PO PRN ×3 (08:28→21:32)
[2017-12-03] MEDS: Vitamin THERAPEUTIC TAB PO SCH (08:28)
[2017-12-03] MEDS: Nicotine Inhaler* 10 MG AMP INH PRN ×3 (08:29→21:05)
--- NOTE | 2017-12-03 11:43 | PN ---
MHU: Group Therapy Note - Service Type Service Type: [id number] Group Psychotherapy - Cognitive Behavioral Group Therapy ( CBT):Patient was attentive and participatory in CBT programming this morning, and remained in good behavioral control. Patient expressed positive insights regarding relevant treatment interventions and goals.
[2017-12-03] MEDS: diPHENhydraMINE PO* 50 MG PO PRN (12:03)
[2017-12-03] MEDS: Nicotine GUM* 2 MG PO PRN (12:04)
--- NOTE | 2017-12-03 16:54 | PN ---
Subjective - Subjective Service Type: [id number] Hosp care 15 min low complexity Subjective: Ranjit is sleeping upon com writer's approach. He was present in milieu and attending groups earlier in the day. Per staff, he has been intermittently attending groups. He slept the majority of the days over the weekend. He has been safe and in behavioral control. Objective - Appearance Appearance: Well Developed/Nourished Dysmorphic Features: No Hygiene: Normal Grooming: Fairly Well Kept - Behavior Psychomotor Activities: Normal Exhibits Abnormal Movement: No - Attitude and Relatedness Attitude and Relatedness: Cooperative Eye Contact: Fair - Speech Quality: Unpressured Latencies: Normal Quantity: Appropriate - Mood Patient's Decription of Mood: "Fine" - Affect Observed Affect: Good Affect Consistent with: Euthymia - Thought Process Patient's Thought Process: Coherent, Goal Directed Thought Content: No Passive Wish, No Suicidal Planning, No Homicidal Ideation, No Paranoid Ideation - Sensorium Experiencing Hallucinations: No, Sensorium is Clear Type of Hallucinations: Visual: No, Auditory: No, Command: No - Level of Consciousness Level of Consciousness: Alert Orientation: Yes Intact, Yes Orientated to Time, Yes Orientated to Place, Yes Orientated to Person - Impulse Control Impulse Control: Tenuous - Insight and Judgement Insight and Judgement: Fair - Group Participation Particating in Group Activities: Yes - Medication Management Medication Management Adherence: Yes Assessment - Assessment Merits Inpatient Hospitalization: For Immediate Safety, For Stabilization, Pending Safe DC Plan Inpatient DSM-V Dx: F10.94 Clinical Impression: 37yo male, undomiciled, disabled with history of trauma and substance use. He presented to ED with reports of suicidal ideation with a plan. He is requesting to be referred to intermediate project manager substance use treatment. He merits hospitalization for immediate safety and stabilization. Plan - Plan Treatment Plan: Name: RANJIT SHELTON Birthdate: 1980 [id number] continue acute intensive psychiatric treatment. continue medications. awaiting acceptance at inpatient substance use facility. Continued Medication Management: Start Medication Medications: Current Medications Acetaminophen (Tylenol Tab*) 650 mg PO Q4H PRN PRN Reason: PAIN or TEMP > 101 F Last Admin: 12/01/17 17:23 Dose: 650 mg Al Hydrox/Mg Hydrox/Simethicone (Maalox Plus*) 30 ml PO Q4H PRN PRN Reason: INDIGESTION Last Admin: 11/30/17 18:42 Dose: 30 ml Device (Nicotine Mouth Piece*) 1 each INH .[facility] Diphenhydramine HCl (Benadryl Po*) 50 mg PO Q6H PRN PRN Reason: INSOMNIA/ITCHINESS Last Admin: 12/03/17 12:03 Dose: 50 mg Gabapentin (Neurontin Cap(*)) 300 mg PO TID [facility] Last Admin: 12/03/17 13:51 Dose: 300 mg Haloperidol (Haldol Tab*) 5 mg PO Q6H PRN PRN Reason: AGITATION Last Admin: 11/28/17 00:54 Dose: 5 mg Hydroxyzine HCl (Atarax Tab*) 50 mg PO Q6H PRN PRN Reason: ANXIETY/ AGITATION Last Admin: 12/03/17 14:39 Dose: 50 mg Multivitamins (Theragran Tab*) 1 tab PO DAILY [facility] Last Admin: 12/03/17 08:28 Dose: 1 tab Nicotine (Nicotine Inhaler*) 10 mg INH Q2H PRN PRN Reason: CRAVING Last Admin: 12/03/17 12:04 Dose: 10 mg Nicotine (Nicotine Patch 21 Mg/24 Hr*) 1 patch TRANSDERM DAILY [facility] Last Admin: 12/03/17 08:28 Dose: 1 patch Nicotine Polacrilex (Nicotine Gum*) 2 mg PO Q2H PRN PRN Reason: CRAVING Last Admin: 12/03/17 12:04 Dose: 2 mg Paliperidone (Invega Er Tab*) 6 mg PO BEDTIME [facility] Last Admin: 12/02/17 20:42 Dose: Not Given Pharmacy Profile Note (Nicotine Patch Removal Note*) 1 note PATCH OFF 2100 [facility] Last Admin: 12/02/17 22:38 Dose: 1 note Trazodone HCl (Desyrel Tab*) 50 mg PO BEDTIME [facility] Last Admin: 12/02/17 20:42 Dose: 50 mg - Discharge Plan Discharge Plan: Drug/Alcohol Rehab
[2017-12-03] MEDS: traZODone TAB* 50 MG TAB PO SCH (21:06)
[2017-12-03] MEDS: Paliperidone ER TAB* 3 MG TAB.ER PO SCH (23:09)
[2017-12-03] MEDS: Nicotine Patch Removal NOTE PATCH OFF SCH (23:33)
[2017-12-04] MEDS: Nicotine Inhaler* 10 MG AMP INH PRN ×5 (00:45→21:26)
[2017-12-04] MEDS: diPHENhydraMINE PO* 50 MG PO PRN ×2 (03:40→21:26)
[2017-12-04] MEDS: hydrOXYzine HCL TAB* 50 MG PO PRN ×3 (03:40→15:23)
[2017-12-04] MEDS: Vitamin THERAPEUTIC TAB PO SCH (09:23)
[2017-12-04] MEDS: Nicotine PATCH 21 MG/24 HR* PATCH TRANSDERM SCH (09:23)
[2017-12-04] MEDS: Gabapentin CAP(*) 300 MG PO SCH ×2 (09:23→12:57)
--- NOTE | 2017-12-04 13:27 | PN ---
Subjective - Subjective Service Type: [id number] Hosp care 25 min moderate complexity Subjective: Patient is euthymic and pleasant upon approach. He reports continued desire to pursue substance use treatment. He is agreeable to SW making multiple referrals while awaiting for opening at [facility]. Patient states he stopped taking paliperidone due to untoward effects. He denies psychotic sx. He states he would prefer antidepressant treatment and cites past efficacy with citalopram. Patient reports difficulty sleeping and has insight that he has been napping during the day. Objective - Appearance Appearance: Well Developed/Nourished Dysmorphic Features: Yes Hygiene: Normal Grooming: Fairly Well Kept - Behavior Psychomotor Activities: Normal Exhibits Abnormal Movement: No - Attitude and Relatedness Attitude and Relatedness: Cooperative Eye Contact: Good - Speech Quality: Unpressured Latencies: Normal Quantity: Appropriate - Mood Patient's Decription of Mood: "better" - Affect Observed Affect: Good Affect Consistent with: Euthymia - Thought Process Patient's Thought Process: Coherent, Goal Directed Thought Content: No Passive Wish, No Suicidal Planning, No Homicidal Ideation, No Paranoid Ideation - Sensorium Experiencing Hallucinations: No, Sensorium is Clear Type of Hallucinations: Visual: No, Auditory: No, Command: No - Level of Consciousness Level of Consciousness: Alert Orientation: Yes Intact, Yes Orientated to Time, Yes Orientated to Place, Yes Orientated to Person - Impulse Control Impulse Control: Tenuous - Insight and Judgement Insight and Judgement: Good - Group Participation Particating in Group Activities: Yes - Medication Management Medication Management Adherence: Partial Assessment - Assessment Merits Inpatient Hospitalization: For Immediate Safety, For Stabilization, Consolidate Improvements Inpatient DSM-V Dx: F10.94 Clinical Impression: 37yo male, undomiciled, disabled with history of trauma and substance use. He presented to ED with reports of suicidal ideation with a plan. He is requesting to be referred to long-term substance use treatment. He merits hospitalization for immediate safety and stabilization. Plan - Plan Treatment Plan: Name: YOVANA SHELTON Birthdate: 1980 [id number] continue acute intensive psychiatric treatment. DC paliperidone and haloperidol , add citalopram, increase trazodone. awaiting acceptance at inpatient substance use facility. Continued Medication Management: Different Medication Medications: Current Medications Acetaminophen (Tylenol Tab*) 650 mg PO Q4H PRN PRN Reason: PAIN or TEMP > 101 F Last Admin: 12/01/17 17:23 Dose: 650 mg Al Hydrox/Mg Hydrox/Simethicone (Maalox Plus*) 30 ml PO Q4H PRN PRN Reason: INDIGESTION Last Admin: 11/30/17 18:42 Dose: 30 ml Citalopram Hydrobromide (Celexa Tab*) 20 mg PO DAILY [facility] Device (Nicotine Mouth Piece*) 1 each INH .[facility] Diphenhydramine HCl (Benadryl Po*) 50 mg PO Q6H PRN PRN Reason: INSOMNIA/ITCHINESS Last Admin: 12/04/17 03:40 Dose: 50 mg Gabapentin (Neurontin Cap(*)) 300 mg PO TID [facility] Stop: 12/04/17 14:00 Last Admin: 12/04/17 12:57 Dose: 300 mg Gabapentin (Neurontin Cap(*)) 400 mg PO TID [facility] Hydroxyzine HCl (Atarax Tab*) 50 mg PO Q6H PRN PRN Reason: ANXIETY/ AGITATION Last Admin: 12/04/17 09:22 Dose: 50 mg Multivitamins (Theragran Tab*) 1 tab PO DAILY [facility] Last Admin: 12/04/17 09:23 Dose: 1 tab Nicotine (Nicotine Inhaler*) 10 mg INH Q2H PRN PRN Reason: CRAVING Last Admin: 12/04/17 09:22 Dose: 10 mg Nicotine (Nicotine Patch 21 Mg/24 Hr*) 1 patch TRANSDERM DAILY [facility] Last Admin: 12/04/17 09:23 Dose: 1 patch Nicotine Polacrilex (Nicotine Gum*) 2 mg PO Q2H PRN PRN Reason: CRAVING Last Admin: 12/03/17 12:04 Dose: 2 mg Pharmacy Profile Note (Nicotine Patch Removal Note*) 1 note PATCH OFF 2100 [facility] Last Admin: 12/03/17 23:33 Dose: 1 note Trazodone HCl (Desyrel Tab*) 100 mg PO BEDTIME [facility] - Discharge Plan Discharge Plan: Drug/Alcohol Rehab
[2017-12-04] MEDS: Gabapentin CAP(*) 400 MG PO SCH ×2 (13:34→21:23)
[2017-12-04] MEDS: traZODone TAB* 100 MG PO SCH (21:23)
[2017-12-04] MEDS: Acetaminophen TAB* 325 MG PO PRN (21:25)
[2017-12-04] MEDS: Nicotine Patch Removal NOTE PATCH OFF SCH (21:51)
[2017-12-05] MEDS: Vitamin THERAPEUTIC TAB PO SCH (08:25)
[2017-12-05] MEDS: Citalopram TAB* 20 MG PO SCH (08:25)
[2017-12-05] MEDS: Gabapentin CAP(*) 400 MG PO SCH ×3 (08:25→21:30)
[2017-12-05] MEDS: Nicotine PATCH 21 MG/24 HR* PATCH TRANSDERM SCH (08:26)
[2017-12-05] MEDS: hydrOXYzine HCL TAB* 50 MG PO PRN ×3 (08:28→21:31)
[2017-12-05] MEDS: Nicotine GUM* 2 MG PO PRN (09:54)
[2017-12-05] MEDS: Nicotine Inhaler* 10 MG AMP INH PRN ×3 (09:54→21:31)
[2017-12-05] MEDS: traZODone TAB* 100 MG PO SCH (21:29)
[2017-12-05] MEDS: Nicotine Patch Removal NOTE PATCH OFF SCH (21:31)
[2017-12-06] MEDS: Nicotine Inhaler* 10 MG AMP INH PRN ×2 (06:21→17:13)
[2017-12-06] MEDS: Nicotine PATCH 21 MG/24 HR* PATCH TRANSDERM SCH ×2 (06:22→09:57)
[2017-12-06] MEDS: Nicotine GUM* 2 MG PO PRN (06:23)
[2017-12-06] MEDS: hydrOXYzine HCL TAB* 50 MG PO PRN ×2 (06:24→16:25)
[2017-12-06] MEDS: Gabapentin CAP(*) 400 MG PO SCH ×3 (09:56→22:23)
[2017-12-06] MEDS: Vitamin THERAPEUTIC TAB PO SCH (09:57)
[2017-12-06] MEDS: Citalopram TAB* 20 MG PO SCH (09:57)
--- NOTE | 2017-12-06 11:54 | PN ---
MHU: Group Therapy Note - Service Type Service Type: [id number] Group Psychotherapy - Cognitive Behavioral Group Therapy ( CBT):Patient was attentive and participatory in CBT programming this morning, and remained in good behavioral control. Patient expressed positive insights regarding relevant treatment interventions and goals.
[2017-12-06] MEDS: traZODone TAB* 100 MG PO SCH (22:23)
[2017-12-06] MEDS: Nicotine Patch Removal NOTE PATCH OFF SCH (22:25)
[2017-12-07] MEDS: hydrOXYzine HCL TAB* 50 MG PO PRN ×2 (07:52→19:48)
[2017-12-07] MEDS: Nicotine Inhaler* 10 MG AMP INH PRN ×3 (07:52→19:48)
[2017-12-07] MEDS: Vitamin THERAPEUTIC TAB PO SCH (10:40)
[2017-12-07] MEDS: Nicotine PATCH 21 MG/24 HR* PATCH TRANSDERM SCH (10:40)
[2017-12-07] MEDS: Citalopram TAB* 20 MG PO SCH (10:40)
[2017-12-07] MEDS: Gabapentin CAP(*) 400 MG PO SCH ×3 (10:40→21:00)
--- NOTE | 2017-12-07 11:55 | PN ---
MHU: Group Therapy Note - Service Type Service Type: [id number] Group Psychotherapy - Cognitive Behavioral Group Therapy ( CBT):Patient was attentive and participatory in CBT programming this morning, and remained in good behavioral control. Patient expressed positive insights regarding relevant treatment interventions and goals.
--- NOTE | 2017-12-07 12:55 | PN ---
Subjective - Subjective Service Type: 27892 Hosp care 15 min low complexity Subjective: Patient reports feeling "better" and attributes this to current medications. He states he is looking forward to attending inpatient rehab. He states he wants to increase physical exercise and no longer associate with friends who were using drugs and alcohol. He is scheduled to participate in a phone screening for an inpatient facility today. Objective - Appearance Appearance: Well Developed/Nourished Dysmorphic Features: No Hygiene: Normal Grooming: Well Kept - Behavior Psychomotor Activities: Normal Exhibits Abnormal Movement: No - Attitude and Relatedness Attitude and Relatedness: Cooperative Eye Contact: Good - Speech Quality: Unpressured Latencies: Normal Quantity: Appropriate - Mood Patient's Decription of Mood: "Good" - Affect Observed Affect: Good Affect Consistent with: Euthymia - Thought Process Patient's Thought Process: Coherent, Goal Directed Thought Content: No Passive Wish, No Suicidal Planning, No Homicidal Ideation, No Paranoid Ideation - Sensorium Experiencing Hallucinations: No, Sensorium is Clear Type of Hallucinations: Visual: No, Auditory: No, Command: No - Level of Consciousness Level of Consciousness: Alert Orientation: Yes Intact, Yes Orientated to Time, Yes Orientated to Place, Yes Orientated to Person - Impulse Control Impulse Control: Tenuous - Insight and Judgement Insight and Judgement: Fair - Group Participation Particating in Group Activities: Yes - Medication Management Medication Management Adherence: Yes Assessment - Assessment Merits Inpatient Hospitalization: For Immediate Safety, For Stabilization, Pending Safe DC Plan Inpatient DSM-V Dx: F10.94 Clinical Impression: 37yo male, undomiciled, disabled with history of trauma and substance use. He presented to ED with reports of suicidal ideation with a plan. He is requesting to be referred to assistant terminal manager substance use treatment. He merits hospitalization for immediate safety and stabilization. Plan - Plan Treatment Plan: Name: YOVANA SHELTON Birthdate: 1980 [id number] continue acute intensive psychiatric treatment. awaiting acceptance at inpatient substance use facility. Continued Medication Management: Different Medication Medications: Current Medications Acetaminophen (Tylenol Tab*) 650 mg PO Q4H PRN PRN Reason: PAIN or TEMP > 101 F Last Admin: 12/04/17 21:25 Dose: 650 mg Al Hydrox/Mg Hydrox/Simethicone (Maalox Plus*) 30 ml PO Q4H PRN PRN Reason: INDIGESTION Last Admin: 11/30/17 18:42 Dose: 30 ml Citalopram Hydrobromide (Celexa Tab*) 20 mg PO DAILY [facility] Last Admin: 12/07/17 10:40 Dose: 20 mg Device (Nicotine Mouth Piece*) 1 each INH .[facility] Diphenhydramine HCl (Benadryl Po*) 50 mg PO Q6H PRN PRN Reason: INSOMNIA/ITCHINESS Last Admin: 12/04/17 21:26 Dose: 50 mg Gabapentin (Neurontin Cap(*)) 400 mg PO TID [facility] Last Admin: 12/07/17 10:40 Dose: 400 mg Hydroxyzine HCl (Atarax Tab*) 50 mg PO Q6H PRN PRN Reason: ANXIETY/ AGITATION Last Admin: 12/07/17 07:52 Dose: 50 mg Multivitamins (Theragran Tab*) 1 tab PO DAILY [facility] Last Admin: 12/07/17 10:40 Dose: 1 tab Nicotine (Nicotine Inhaler*) 10 mg INH Q2H PRN PRN Reason: CRAVING Last Admin: 12/07/17 10:43 Dose: 10 mg Nicotine (Nicotine Patch 21 Mg/24 Hr*) 1 patch TRANSDERM DAILY [facility] Last Admin: 12/07/17 10:40 Dose: 1 patch Nicotine Polacrilex (Nicotine Gum*) 2 mg PO Q2H PRN PRN Reason: CRAVING Last Admin: 12/06/17 06:23 Dose: 2 mg Pharmacy Profile Note (Nicotine Patch Removal Note*) 1 note PATCH OFF 2100 [facility] Last Admin: 12/06/17 22:25 Dose: 1 note Pharmacy Profile Note (Ppd Reading Note*) 1 note .SEE ORDER .PPD READING ONE Stop: 12/09/17 12:46 Trazodone HCl (Desyrel Tab*) 100 mg PO BEDTIME [facility] Last Admin: 12/06/17 22:23 Dose: 100 mg Tuberculin PPD (Tuberculin Ppd Test Dose*) 5 tu INTRADERM ONCE [facility] Stop: 12/07/17 23:59 - Discharge Plan Discharge Plan: Drug/Alcohol Rehab
[2017-12-07] MEDS ORDERED: PPD test dose* 5 TU/0.1 ML TEST (*USE PPD ORDER SET*) INTRADERM ONE (13:00)
[2017-12-07] MEDS: traZODone TAB* 100 MG PO SCH (21:01)
[2017-12-07] MEDS: Nicotine Patch Removal NOTE PATCH OFF SCH (21:01)
[2017-12-08] MEDS: Nicotine Inhaler* 10 MG AMP INH PRN ×5 (06:20→22:51)
[2017-12-08] MEDS: Nicotine PATCH 21 MG/24 HR* PATCH TRANSDERM SCH ×2 (06:20→10:08)
[2017-12-08] MEDS: hydrOXYzine HCL TAB* 50 MG PO PRN ×2 (06:20→12:47)
[2017-12-08] MEDS: Vitamin THERAPEUTIC TAB PO SCH (07:15)
[2017-12-08] MEDS: Gabapentin CAP(*) 400 MG PO SCH ×3 (07:15→20:53)
[2017-12-08] MEDS: Citalopram TAB* 20 MG PO SCH (07:15)
[2017-12-08] MEDS: Fluticasone NASAL SPRAY 50MCG* 16 gm SPRAY BTL BOTH NARES SCH (17:09)
[2017-12-08] MEDS: traZODone TAB* 100 MG PO SCH (20:53)
[2017-12-08] MEDS: Nicotine Patch Removal NOTE PATCH OFF SCH (21:29)
[2017-12-09] MEDS: Nicotine Inhaler* 10 MG AMP INH PRN ×3 (07:30→18:55)
[2017-12-09] MEDS: Citalopram TAB* 20 MG PO SCH (07:30)
[2017-12-09] MEDS: Gabapentin CAP(*) 400 MG PO SCH ×3 (07:30→21:56)
[2017-12-09] MEDS: Vitamin THERAPEUTIC TAB PO SCH (07:30)
[2017-12-09] MEDS: Nicotine PATCH 21 MG/24 HR* PATCH TRANSDERM SCH (07:31)
[2017-12-09] MEDS: Fluticasone NASAL SPRAY 50MCG* 16 gm SPRAY BTL BOTH NARES SCH (07:31)
[2017-12-09] MEDS: hydrOXYzine HCL TAB* 50 MG PO PRN (12:40)
[2017-12-09] MEDS ORDERED: PPD Reading NOTE* (*USE PPD ORDER SET*) ONE (14:00)
[2017-12-09] MEDS: Nicotine Patch Removal NOTE PATCH OFF SCH (21:56)
[2017-12-09] MEDS: traZODone TAB* 100 MG PO SCH (21:56)
[2017-12-10] MEDS: Gabapentin CAP(*) 400 MG PO SCH ×3 (07:41→20:52)
[2017-12-10] MEDS: Vitamin THERAPEUTIC TAB PO SCH (07:41)
[2017-12-10] MEDS: Nicotine PATCH 21 MG/24 HR* PATCH TRANSDERM SCH (07:42)
[2017-12-10] MEDS: Citalopram TAB* 20 MG PO SCH (07:42)
[2017-12-10] MEDS: Nicotine Inhaler* 10 MG AMP INH PRN ×3 (07:42→21:27)
[2017-12-10] MEDS: Fluticasone NASAL SPRAY 50MCG* 16 gm SPRAY BTL BOTH NARES SCH (07:43)
[2017-12-10] MEDS: hydrOXYzine HCL TAB* 50 MG PO PRN (08:55)
[2017-12-10] MEDS ORDERED: PPD Reading NOTE* (*USE PPD ORDER SET*) ONE (11:45)
--- NOTE | 2017-12-10 16:40 | PN ---
Subjective - Subjective Service Type: 39202 Hosp care 15 min low complexity Subjective: Patient reports understanding that he must call [facility] in [place], [place] today for a phone screening. He states he hopes to complete treatment and work on healthy goals. He reports desire to exercise and become a triathlete. He states he wants to abstain from alcohol due to converting to nondenominational. He denies depression, anxiety or SI. He requests to change from Atarax to buspirone for anxiety and cites this medication is less sedating for him. PPD was placed and read to be negative. Objective - Appearance Appearance: Well Developed/Nourished Dysmorphic Features: No Hygiene: Normal Grooming: Well Kept - Behavior Psychomotor Activities: Normal - Attitude and Relatedness Attitude and Relatedness: Cooperative Eye Contact: Good - Speech Quality: Unpressured Latencies: Normal Quantity: Appropriate - Mood Patient's Decription of Mood: "Good" - Affect Observed Affect: Good Affect Consistent with: Euthymia - Thought Process Patient's Thought Process: Coherent, Goal Directed Thought Content: No Passive Wish, No Suicidal Planning, No Homicidal Ideation, No Paranoid Ideation - Sensorium Experiencing Hallucinations: No, Sensorium is Clear Type of Hallucinations: Visual: No, Auditory: No, Command: No - Level of Consciousness Level of Consciousness: Alert Orientation: Yes Intact, Yes Orientated to Time, Yes Orientated to Place, Yes Orientated to Person - Impulse Control Impulse Control: Tenuous - Insight and Judgement Insight and Judgement: Fair - Group Participation Particating in Group Activities: Yes - Medication Management Medication Management Adherence: Yes Assessment - Assessment Merits Inpatient Hospitalization: For Immediate Safety, For Stabilization, Pending Safe DC Plan Inpatient DSM-V Dx: F10.94 Clinical Impression: 37yo male, undomiciled, disabled with history of trauma and substance use. He presented to ED with reports of auditory hallucinations and suicidal ideation with a plan. He is requesting to be referred to dental instrument maker substance use treatment. Plan - Plan Treatment Plan: Name: YOVANA SHELTON Birthdate: 1980 [id number] continue acute intensive psychiatric treatment. awaiting acceptance at inpatient substance use facility. Continued Medication Management: Start Medication Medications: Current Medications Acetaminophen (Tylenol Tab*) 650 mg PO Q4H PRN PRN Reason: PAIN or TEMP > 101 F Last Admin: 12/04/17 21:25 Dose: 650 mg Al Hydrox/Mg Hydrox/Simethicone (Maalox Plus*) 30 ml PO Q4H PRN PRN Reason: INDIGESTION Last Admin: 11/30/17 18:42 Dose: 30 ml Buspirone HCl (Buspar Tab*) 10 mg PO BID [facility] Citalopram Hydrobromide (Celexa Tab*) 20 mg PO DAILY [facility] Last Admin: 12/10/17 07:42 Dose: 20 mg Device (Nicotine Mouth Piece*) 1 each INH .CARTRIDGE [facility] Diphenhydramine HCl (Benadryl Po*) 50 mg PO Q6H PRN PRN Reason: INSOMNIA/ITCHINESS Last Admin: 12/04/17 21:26 Dose: 50 mg Fluticasone Propionate (Flonase Nasal [place] 50mcg*) 2 spray BOTH NARES DAILY [facility] Last Admin: 12/10/17 07:43 Dose: 2 spray Gabapentin (Neurontin Cap(*)) 400 mg PO TID [facility] Last Admin: 12/10/17 13:56 Dose: 400 mg Multivitamins (Theragran Tab*) 1 tab PO DAILY [facility] Last Admin: 12/10/17 07:41 Dose: 1 tab Nicotine (Nicotine Inhaler*) 10 mg INH Q2H PRN PRN Reason: CRAVING Last Admin: 12/10/17 15:14 Dose: 10 mg Nicotine (Nicotine Patch 21 Mg/24 Hr*) 1 patch TRANSDERM DAILY [facility] Last Admin: 12/10/17 07:42 Dose: 1 patch Nicotine Polacrilex (Nicotine Gum*) 2 mg PO Q2H PRN PRN Reason: CRAVING Last Admin: 12/06/17 06:23 Dose: 2 mg Pharmacy Profile Note (Nicotine Patch Removal Note*) 1 note PATCH OFF 2100 [facility] Last Admin: 12/09/17 21:56 Dose: 1 note Trazodone HCl (Desyrel Tab*) 100 mg PO BEDTIME [facility] Last Admin: 12/09/17 21:56 Dose: 100 mg - Discharge Plan Discharge Plan: Drug/Alcohol Rehab
[2017-12-10] MEDS: busPIRone TAB* 10 MG PO SCH ×2 (17:08→20:52)
[2017-12-10] MEDS: traZODone TAB* 100 MG PO SCH (20:55)
[2017-12-11] MEDS: Nicotine Patch Removal NOTE PATCH OFF SCH (00:36)
[2017-12-11] MEDS: Nicotine PATCH 21 MG/24 HR* PATCH TRANSDERM SCH (09:24)
[2017-12-11] MEDS: Vitamin THERAPEUTIC TAB PO SCH (09:25)
[2017-12-11] MEDS: Citalopram TAB* 20 MG PO SCH (09:25)
[2017-12-11] MEDS: Gabapentin CAP(*) 400 MG PO SCH ×3 (09:25→21:54)
[2017-12-11] MEDS: Fluticasone NASAL SPRAY 50MCG* 16 gm SPRAY BTL BOTH NARES SCH (09:26)
[2017-12-11] MEDS: busPIRone TAB* 10 MG PO SCH ×2 (09:28→21:54)
[2017-12-11] MEDS: Nicotine Inhaler* 10 MG AMP INH PRN ×4 (09:29→21:55)
[2017-12-11] MEDS: diPHENhydraMINE PO* 50 MG PO PRN (16:11)
[2017-12-11] MEDS: traZODone TAB* 100 MG PO SCH (21:54)
[2017-12-12] MEDS: Nicotine Patch Removal NOTE PATCH OFF SCH ×2 (03:14→21:16)
[2017-12-12] MEDS: Fluticasone NASAL SPRAY 50MCG* 16 gm SPRAY BTL BOTH NARES SCH (07:58)
[2017-12-12] MEDS: Nicotine Inhaler* 10 MG AMP INH PRN ×3 (07:59→21:17)
[2017-12-12] MEDS: Nicotine PATCH 21 MG/24 HR* PATCH TRANSDERM SCH (08:00)
[2017-12-12] MEDS: busPIRone TAB* 10 MG PO SCH ×2 (08:01→21:15)
[2017-12-12] MEDS: Gabapentin CAP(*) 400 MG PO SCH ×3 (08:01→21:15)
[2017-12-12] MEDS: Citalopram TAB* 20 MG PO SCH (08:01)
[2017-12-12] MEDS: Vitamin THERAPEUTIC TAB PO SCH (08:02)
--- NOTE | 2017-12-12 12:55 | PN ---
MHU: Group Therapy Note - Service Type Service Type: [id number] Group Psychotherapy - Cognitive Behavioral Group Therapy ( CBT):Patient was attentive and participatory in CBT programming this morning, and remained in good behavioral control. Patient expressed positive insights regarding relevant treatment interventions and goals.
[2017-12-12] MEDS: diPHENhydraMINE PO* 50 MG PO PRN (13:29)
[2017-12-12] MEDS: Al Hydrox/Mg Hydrox/Simet LIQ* 30 ML UDC PO PRN (13:29)
[2017-12-12] MEDS: Nicotine GUM* 2 MG PO PRN (13:30)
--- NOTE | 2017-12-12 15:51 | PN ---
Subjective - Subjective Service Type: 17590 Hosp care 15 min low complexity Subjective: Late entry for 12/11/17: Patient was sleeping upon approach and easy to rouse. SW updated him with plan of acceptance to [facility] with bed date on 12/17/17. He was strongly instructed to engage in programming and to refrain from sleeping during the day. Patient was reminded of expectations to interact with staff and peers in positive and respectful manner and reminded of [facility] contract. Objective - Appearance Appearance: Well Developed/Nourished Dysmorphic Features: No Hygiene: Normal Grooming: Fairly Well Kept - Behavior Psychomotor Activities: Normal Exhibits Abnormal Movement: No - Attitude and Relatedness Attitude and Relatedness: Superficially Cooperative Eye Contact: Fair - Speech Quality: Unpressured Latencies: Normal Quantity: Terse - Mood Patient's Decription of Mood: "Anxious" - Affect Observed Affect: Good Affect Consistent with: Euthymia - Thought Process Patient's Thought Process: Coherent, Goal Directed Thought Content: No Passive Wish, No Suicidal Planning, No Homicidal Ideation, No Paranoid Ideation - Sensorium Experiencing Hallucinations: No, Sensorium is Clear Type of Hallucinations: Visual: No, Auditory: No, Command: No - Level of Consciousness Level of Consciousness: Alert Orientation: Yes Intact, Yes Orientated to Time, Yes Orientated to Place, Yes Orientated to Person - Impulse Control Impulse Control: Poor - Insight and Judgement Insight and Judgement: Poor - Group Participation Particating in Group Activities: Yes - Medication Management Medication Management Adherence: Yes Assessment - Assessment Merits Inpatient Hospitalization: For Immediate Safety, For Stabilization, Consolidate Improvements, For Discharge Planning Inpatient DSM-V Dx: F10.94 Clinical Impression: 37yo male, undomiciled, disabled with history of trauma and substance use. He presented to ED with reports of auditory hallucinations and suicidal ideation with a plan. He is requesting to be referred to intermediate project manager substance use treatment. Plan - Plan Treatment Plan: Name: YOVANA SHELTON Birthdate: 1980 [id number] continue acute intensive psychiatric treatment. awaiting acceptance at inpatient substance use facility. potential bed date at [facility] on 12/17/17. Continued Medication Management: Different Medication Medications: Current Medications Acetaminophen (Tylenol Tab*) 650 mg PO Q4H PRN PRN Reason: PAIN or TEMP > 101 F Last Admin: 12/04/17 21:25 Dose: 650 mg Al Hydrox/Mg Hydrox/Simethicone (Maalox Plus*) 30 ml PO Q4H PRN PRN Reason: INDIGESTION Last Admin: 12/12/17 13:29 Dose: 30 ml Buspirone HCl (Buspar Tab*) 10 mg PO BID [facility] Last Admin: 12/12/17 08:01 Dose: 10 mg Citalopram Hydrobromide (Celexa Tab*) 20 mg PO DAILY [facility] Last Admin: 12/12/17 08:01 Dose: 20 mg Device (Nicotine Mouth Piece*) 1 each INH .CARTRIDGE [facility] Diphenhydramine HCl (Benadryl Po*) 50 mg PO BEDTIME PRN PRN Reason: INSOMNIA/ITCHINESS Last Admin: 12/12/17 13:29 Dose: 50 mg Fluticasone Propionate (Flonase Nasal [place] 50mcg*) 2 spray BOTH NARES DAILY [facility] Last Admin: 12/12/17 07:58 Dose: 2 spray Gabapentin (Neurontin Cap(*)) 400 mg PO TID [facility] Last Admin: 12/12/17 13:29 Dose: 400 mg Multivitamins (Theragran Tab*) 1 tab PO DAILY [facility] Last Admin: 12/12/17 08:02 Dose: 1 tab Nicotine (Nicotine Inhaler*) 10 mg INH Q2H PRN PRN Reason: CRAVING Last Admin: 12/12/17 13:30 Dose: 10 mg Nicotine (Nicotine Patch 21 Mg/24 Hr*) 1 patch TRANSDERM DAILY [facility] Last Admin: 12/12/17 08:00 Dose: 1 patch Nicotine Polacrilex (Nicotine Gum*) 2 mg PO Q2H PRN PRN Reason: CRAVING Last Admin: 12/12/17 13:30 Dose: 2 mg Pharmacy Profile Note (Nicotine Patch Removal Note*) 1 note PATCH OFF 2100 [facility] Last Admin: 12/12/17 03:14 Dose: Not Given Trazodone HCl (Desyrel Tab*) 100 mg PO BEDTIME [facility] Last Admin: 12/11/17 21:54 Dose: 100 mg - Discharge Plan Discharge Plan: Drug/Alcohol Rehab Outpatient Program: [facility]
[2017-12-12] MEDS: traZODone TAB* 100 MG PO SCH (21:15)
[2017-12-13] MEDS: Nicotine Patch Removal NOTE PATCH OFF SCH
[2017-12-13] MEDS: Nicotine PATCH 21 MG/24 HR* PATCH TRANSDERM SCH (09:44)
[2017-12-13] MEDS: Fluticasone NASAL SPRAY 50MCG* 16 gm SPRAY BTL BOTH NARES SCH (09:45)
[2017-12-13] MEDS: Gabapentin CAP(*) 400 MG PO SCH ×3 (09:45→21:32)
[2017-12-13] MEDS: busPIRone TAB* 10 MG PO SCH (09:46)
[2017-12-13] MEDS: Vitamin THERAPEUTIC TAB PO SCH (09:46)
[2017-12-13] MEDS: Citalopram TAB* 20 MG PO SCH (09:46)
[2017-12-13] MEDS ORDERED: busPIRone TAB* 10 MG PO ONE (14:39)
--- NOTE | 2017-12-13 15:01 | PN ---
Subjective - Subjective Service Type: [id number] Hosp care 25 min moderate complexity Subjective: Patient reports "today, I feel a lot better." He states he is usually most anxious in the afternoons and inquires about changing dosing of buspirone. He states he has been meditating and talking with peers in order to cope. He reports improved sleep and has refrained from napping during the day. He states he is appreciative of publications writer and staff encouraging structure. He states he wants to be a positive role model and eludes to his age being a factor. He denies SI/HI/. Objective - Appearance Appearance: Well Developed/Nourished Dysmorphic Features: No Hygiene: Normal Grooming: Well Kept - Behavior Psychomotor Activities: Normal Exhibits Abnormal Movement: No - Attitude and Relatedness Attitude and Relatedness: Cooperative Eye Contact: Good - Speech Quality: Unpressured Latencies: Normal Quantity: Appropriate - Mood Patient's Decription of Mood: "a lot better" - Affect Observed Affect: Good Affect Consistent with: Euthymia - Thought Process Patient's Thought Process: Coherent, Goal Directed Thought Content: No Passive Wish, No Suicidal Planning, No Homicidal Ideation, No Paranoid Ideation - Sensorium Experiencing Hallucinations: No, Sensorium is Clear Type of Hallucinations: Visual: No, Auditory: No, Command: No - Level of Consciousness Level of Consciousness: Alert Orientation: Yes Intact, Yes Orientated to Time, Yes Orientated to Place, Yes Orientated to Person - Impulse Control Impulse Control: Tenuous - Insight and Judgement Insight and Judgement: Fair - Group Participation Particating in Group Activities: Yes - Medication Management Medication Management Adherence: Yes Assessment - Assessment Merits Inpatient Hospitalization: For Immediate Safety, For Stabilization, Consolidate Improvements, For Discharge Planning Inpatient DSM-V Dx: F10.94 Clinical Impression: 37yo male, undomiciled, disabled with history of trauma and substance use. He presented to ED with reports of auditory hallucinations and suicidal ideation with a plan. He is requesting to be referred to care home substance use treatment. Plan - Plan Treatment Plan: Name: YOVANA SHELTON Birthdate: 1980 [id number] continue acute intensive psychiatric treatment. awaiting acceptance at inpatient substance use facility. potential bed date at [facility] on 12/17/17. Continued Medication Management: Different Medication Medications: Current Medications Acetaminophen (Tylenol Tab*) 650 mg PO Q4H PRN PRN Reason: PAIN or TEMP > 101 F Last Admin: 12/04/17 21:25 Dose: 650 mg Al Hydrox/Mg Hydrox/Simethicone (Maalox Plus*) 30 ml PO Q4H PRN PRN Reason: INDIGESTION Last Admin: 12/12/17 13:29 Dose: 30 ml Buspirone HCl (Buspar Tab*) 10 mg PO ONCE ONE Stop: 12/13/17 14:40 Buspirone HCl (Buspar Tab*) 10 mg PO BID [facility] Citalopram Hydrobromide (Celexa Tab*) 20 mg PO DAILY [facility] Last Admin: 12/13/17 09:46 Dose: 20 mg Device (Nicotine Mouth Piece*) 1 each INH .CARTRIDGE [facility] Diphenhydramine HCl (Benadryl Po*) 50 mg PO BEDTIME PRN PRN Reason: INSOMNIA/ITCHINESS Last Admin: 12/12/17 13:29 Dose: 50 mg Fluticasone Propionate (Flonase Nasal [place] 50mcg*) 2 spray BOTH NARES DAILY [facility] Last Admin: 12/13/17 09:45 Dose: 2 spray Gabapentin (Neurontin Cap(*)) 400 mg PO TID [facility] Last Admin: 12/13/17 14:39 Dose: 400 mg Multivitamins (Theragran Tab*) 1 tab PO DAILY [facility] Last Admin: 12/13/17 09:46 Dose: 1 tab Nicotine (Nicotine Inhaler*) 10 mg INH Q2H PRN PRN Reason: CRAVING Last Admin: 12/12/17 21:17 Dose: 10 mg Nicotine (Nicotine Patch 21 Mg/24 Hr*) 1 patch TRANSDERM DAILY [facility] Last Admin: 12/13/17 09:44 Dose: 1 patch Nicotine Polacrilex (Nicotine Gum*) 2 mg PO Q2H PRN PRN Reason: CRAVING Last Admin: 12/12/17 13:30 Dose: 2 mg Pharmacy Profile Note (Nicotine Patch Removal Note*) 1 note PATCH OFF 2100 [facility] Last Admin: 12/12/17 21:16 Dose: Not Given Trazodone HCl (Desyrel Tab*) 100 mg PO BEDTIME [facility] Last Admin: 12/12/17 21:15 Dose: 100 mg - Discharge Plan Discharge Plan: Drug/Alcohol Rehab
--- NOTE | 2017-12-13 16:29 | PN ---
MHU: Group Therapy Note - Service Type Service Type: [id number] Group Psychotherapy - Medication Education Group: Patient was attentive and participatory in group, and remained in good behavioral control. Patient expressed positive insights regarding relevant treatment interventions. Patient stated understanding of material discussed and had appropriate questions.
[2017-12-13] MEDS: Nicotine Inhaler* 10 MG AMP INH PRN (19:09)
[2017-12-13] MEDS: traZODone TAB* 100 MG PO SCH (21:32)
[2017-12-13] MEDS: diPHENhydraMINE PO* 50 MG PO PRN (21:32)
[2017-12-14] MEDS: Gabapentin CAP(*) 400 MG PO SCH ×3 (08:55→21:57)
[2017-12-14] MEDS: Citalopram TAB* 20 MG PO SCH (08:55)
[2017-12-14] MEDS: Vitamin THERAPEUTIC TAB PO SCH (08:56)
[2017-12-14] MEDS: busPIRone TAB* 10 MG PO SCH ×2 (08:56→14:10)
[2017-12-14] MEDS: Fluticasone NASAL SPRAY 50MCG* 16 gm SPRAY BTL BOTH NARES SCH (08:56)
[2017-12-14] MEDS: Nicotine PATCH 21 MG/24 HR* PATCH TRANSDERM SCH (08:56)
[2017-12-14] MEDS: Nicotine Inhaler* 10 MG AMP INH PRN ×2 (08:58→12:21)
--- NOTE | 2017-12-14 12:02 | PN ---
MHU: Group Therapy Note - Service Type Service Type: [id number] Group Psychotherapy - Cognitive Behavioral Group Therapy ( CBT):Patient was attentive and participatory in CBT programming this morning, and remained in good behavioral control. Patient expressed positive insights regarding relevant treatment interventions and goals.
[2017-12-14] MEDS: Al Hydrox/Mg Hydrox/Simet LIQ* 30 ML UDC PO PRN (12:21)
--- NOTE | 2017-12-14 12:58 | PN ---
Progress Note - Progress Note Date of Service: 12/14/17 Note: Ranjit was seen by this clinician on behalf of the treatment team and in the position of the adult unit medical physiologist. He is informed in a fairly straightforward manner that the team feels that his numerous short term psychiatric hospitalizations here at the [facility], starting in 2011, and uniformly involving active polysubstance misuse, are no longer helpful for him as they constitute enabling. He has consistently utilized the [facility] as a place to avoid natural consequences of his substance abuse and antisocial behavior patterns only to quickly relapse on drugs following discharge. He is often documented as having a negative impact on other patients in the milieu setting, plotting with others, missing groups, hatching plans to start physical altercations, etc. He is informed that we will keep him on the unit until his planned discharge to the inpatient rehab at [facility], scheduled for December 17, but that thereafter he is no longer welcome to receive treatment here on our unit. Ranjit takes this well, stating that he is now truly ready to be sober and will therefore not need readmission in the future. "This has been the best hospitalization that I've had. I've found God and I haven't had that in awhile. I'm taking control." He denies SI or HI or plans to harm anyone here on the unit.
[2017-12-14] MEDS: Acetaminophen TAB* 325 MG PO PRN (18:15)
[2017-12-14] MEDS: traZODone TAB* 100 MG PO SCH (21:58)
[2017-12-14] MEDS: diPHENhydraMINE PO* 50 MG PO PRN (21:58)
[2017-12-14] MEDS: Nicotine Patch Removal NOTE PATCH OFF SCH (22:00)
[2017-12-15] MEDS: Nicotine Inhaler* 10 MG AMP INH PRN ×4 (07:44→22:41)
[2017-12-15] MEDS: Nicotine PATCH 21 MG/24 HR* PATCH TRANSDERM SCH (07:44)
[2017-12-15] MEDS: Gabapentin CAP(*) 400 MG PO SCH ×3 (11:21→21:35)
[2017-12-15] MEDS: Vitamin THERAPEUTIC TAB PO SCH (11:22)
[2017-12-15] MEDS: busPIRone TAB* 10 MG PO SCH ×2 (11:22→15:21)
[2017-12-15] MEDS: Fluticasone NASAL SPRAY 50MCG* 16 gm SPRAY BTL BOTH NARES SCH (11:22)
[2017-12-15] MEDS: Citalopram TAB* 20 MG PO SCH (11:22)
[2017-12-15] MEDS: traZODone TAB* 100 MG PO SCH (21:35)
[2017-12-15] MEDS: Nicotine Patch Removal NOTE PATCH OFF SCH (21:36)
[2017-12-16] MEDS: diPHENhydraMINE PO* 50 MG PO PRN ×2 (00:13→20:50)
[2017-12-16] MEDS: Gabapentin CAP(*) 400 MG PO SCH ×3 (08:53→20:49)
[2017-12-16] MEDS: Citalopram TAB* 20 MG PO SCH (08:53)
[2017-12-16] MEDS: busPIRone TAB* 10 MG PO SCH ×2 (08:53→14:26)
[2017-12-16] MEDS: Nicotine PATCH 21 MG/24 HR* PATCH TRANSDERM SCH (08:54)
[2017-12-16] MEDS: Vitamin THERAPEUTIC TAB PO SCH (08:54)
[2017-12-16] MEDS: Nicotine Inhaler* 10 MG AMP INH PRN ×3 (08:55→20:49)
[2017-12-16] MEDS: Fluticasone NASAL SPRAY 50MCG* 16 gm SPRAY BTL BOTH NARES SCH (08:55)
[2017-12-16] MEDS: Acetaminophen TAB* 325 MG PO PRN (14:26)
[2017-12-16] MEDS: traZODone TAB* 100 MG PO SCH (20:49)
[2017-12-16] MEDS: Nicotine Patch Removal NOTE PATCH OFF SCH (20:50)
[2017-12-17] MEDS: Gabapentin CAP(*) 400 MG PO SCH (07:39)
[2017-12-17] MEDS: Nicotine Inhaler* 10 MG AMP INH PRN (07:39)
[2017-12-17] MEDS: Citalopram TAB* 20 MG PO SCH (07:39)
[2017-12-17] MEDS: Nicotine PATCH 21 MG/24 HR* PATCH TRANSDERM SCH (07:39)
[2017-12-17] MEDS: Fluticasone NASAL SPRAY 50MCG* 16 gm SPRAY BTL BOTH NARES SCH (07:39)
[2017-12-17] MEDS: busPIRone TAB* 10 MG PO SCH (07:39)
[2017-12-17] MEDS: Vitamin THERAPEUTIC TAB PO SCH (07:39)
[2017-12-17 07:55] VITALS: BP 111/75
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
== END 2017-12-17 08:10 | DRG 897 ==
LOC: ED 19:18 → BSU 11-27 00:27
PROVIDERS: ADMIT Psychiatry & Neurology Psychiatry; ATTEND Psychiatry & Neurology Psychiatry
DX: F10.94 Alcohol use, unspecified with alcohol-induced mood disorder (principal); F14.10 Cocaine abuse, uncomplicated; R45.851 Suicidal ideations; Y90.0 Blood alcohol level of less than 20 mg/100 ml; F17.210 Nicotine dependence, cigarettes, uncomplicated; F19.14 Other psychoactive substance abuse with psychoactive substance-induced mood disorder; Z88.8 Allergy status to other drugs, medicaments and biological substances; Z81.1 Family history of alcohol abuse and dependence; Z81.8 Family history of other mental and behavioral disorders; Z80.9 Family history of malignant neoplasm, unspecified
CPT/HCPCS: 36415; 80053; 80307; 80320; 80329; 81003; 84443; 85025; 90853; 99222; 99231; 99232; 99238; 99283; A9270-GY; G0480

== ENCOUNTER 2018-04-15 13:43 | Inpatient (IN) | payer MEDICARE, MEDICAID ==
[2018-04-15 14:24] LABS: Urine Appearance Clear; Urine Blood Negative (Negative); Urine Color Straw; Urine Ketones Negative (Negative); Urine Protein Negative (Negative); Urine Specific Gravity 1.005 (1.010-1.030); Urine Urobilinogen Negative (Negative)
[2018-04-15] MEDS ORDERED: LORazepam TAB(*) 1 MG PO ONE (14:28)
[2018-04-15 14:42] LABS: ABS Basophils 0.1 10^3/ul (0-0.2); ABS Eosinophils 0.1 10^3/ul (0-0.6); ABS Lymphocytes 2.8 10^3/ul (1.0-4.8); ABS Monocytes 0.5 10^3/ul (0-0.8); ABS Neutrophils 5.2 10^3/ul (1.5-7.7); ABS Nucleated RBC 0 10^3/ul; Eosinophil % 1.2 % (0-6); Hematocrit 47 % (42-52); Hemoglobin 16.2 g/dl (14.0-18.0); Lymphocyte % 32.2 % (25-47); Mean Corpuscular HGB Conc 35 g/dl (31-36); Mean Corpuscular Hemoglobin 31 pg (27-31); Mean Corpuscular Volume 90 fL (80-94); Mean Platelet Volume 8.3 um3 (7.4-10.4); Nucleated Red Blood Cells % 0.1; Platelet Count 223 10^3/ul (150-450); Red Blood Count 5.17 10^6/ul (4.00-5.40); Red Cell Distribution Width 13 % (10.5-15); White Blood Count 8.7 10^3/ul (3.5-10.8)
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
[2018-04-15 15:00] LABS: EGFR Non-African American 98.2 (>60)
[2018-04-15] MEDS ORDERED: Mouth Piece, Nicotine* 1 EACH CARTRIDGE INH PRN (19:08)
[2018-04-15] MEDS ORDERED: Nicotine Inhaler* 10 MG AMP INH ONE (19:08)
[2018-04-15] MEDS ORDERED: Mouth Piece, Nicotine* 1 EACH CARTRIDGE ONE (19:13)
[2018-04-15] MEDS ORDERED: Al Hydrox/Mg Hydrox/Simet LIQ* 30 ML UDC PO PRN (22:11)
[2018-04-15] MEDS ORDERED: Acetaminophen TAB* 325 MG PO PRN (22:11)
[2018-04-15] MEDS ORDERED: Nicotine GUM* 2 MG PO PRN (22:12)
[2018-04-15] MEDS ORDERED: Mouth Piece, Nicotine* 1 EACH CARTRIDGE INH SCH (22:12)
[2018-04-15] MEDS ORDERED: traZODone TAB* 100 MG PO PRN (22:13)
[2018-04-16] MEDS: Nicotine Inhaler* 10 MG AMP INH PRN ×3 (04:45→14:00)
[2018-04-16 07:54] VITALS: BP 135/82
[2018-04-16] MEDS: busPIRone TAB* 30 MG PO SCH ×2 (07:56→14:00)
[2018-04-16] MEDS ORDERED: Citalopram TAB* 20 MG PO SCH (09:00)
[2018-04-16] MEDS ORDERED: Gabapentin CAP(*) 400 MG PO SCH (09:00)
[2018-04-16] MEDS ORDERED: Vitamin THERAPEUTIC TAB PO SCH (09:00)
[2018-04-16] MEDS ORDERED: Gabapentin CAP(*) 300 MG PO SCH (14:00)
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
== END 2018-04-16 16:21 | disposition home or self-care (01) | DRG 897 ==
LOC: ED 13:43 → BSU 19:19
PROVIDERS: ADMIT Psychiatry & Neurology Psychiatry; ATTEND Psychiatry & Neurology Psychiatry
DX: F15.14 Other stimulant abuse with stimulant-induced mood disorder (principal); R45.851 Suicidal ideations; I10 Essential (primary) hypertension; M79.7 Fibromyalgia; M54.5 Low back pain; Z88.8 Allergy status to other drugs, medicaments and biological substances; Z79.899 Other long term (current) drug therapy
CPT/HCPCS: 36415; 80053; 80061; 80307; 80320; 80329; 81003; 83036; 84443; 85025; 99284; A9270-GY; G0480

== ENCOUNTER 2018-05-09 00:17 | Inpatient (IN) | payer MEDICARE, MEDICAID ==
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
[2018-05-09 01:32] LABS: ABS Basophils 0.1 10^3/ul (0-0.2); ABS Eosinophils 0.1 10^3/ul (0-0.6); ABS Lymphocytes 2.1 10^3/ul (1.0-4.8); ABS Monocytes 0.7 10^3/ul (0-0.8); ABS Neutrophils 13.3 10^3/ul (1.5-7.7); ABS Nucleated RBC 0 10^3/ul; Eosinophil % 0.6 % (0-6); Hematocrit 48 % (42-52); Hemoglobin 16.6 g/dl (14.0-18.0); Lymphocyte % 13.1 % (25-47); Mean Corpuscular HGB Conc 34 g/dl (31-36); Mean Corpuscular Hemoglobin 31 pg (27-31); Mean Corpuscular Volume 91 fL (80-94); Mean Platelet Volume 8.3 um3 (7.4-10.4); Nucleated Red Blood Cells % 0; Platelet Count 238 10^3/ul (150-450); Red Blood Count 5.32 10^6/ul (4.00-5.40); Red Cell Distribution Width 13 % (10.5-15); White Blood Count 16.3 10^3/ul (3.5-10.8)
[2018-05-09 01:46] LABS: EGFR Non-African American 94.4 (>60)
--- NOTE | 2018-05-09 02:24 | RAD ---
EXAM: CT Head Without Intravenous Contrast CLINICAL HISTORY: 37 years old, male; Injury or trauma; Fall; Initial encounter; Abrasion; Forehead TECHNIQUE: Axial computed tomography images of the head/brain without intravenous contrast. COMPARISON: BRAIN WO CT BRAIN WO 2016-11-23 21:03 FINDINGS: Brain: Unremarkable. No hemorrhage. No significant white matter disease. No edema. Ventricles: Unremarkable. No ventriculomegaly. Bones/joints: Unremarkable. No acute fracture. Soft tissues: Unremarkable. Sinuses: Patchy ethmoid sinus disease. Mastoid air cells: Unremarkable as visualized. No mastoid effusion. Since the prior head CT of 11/23/2016, no new findings other than the ethmoid sinus disease. IMPRESSION: No acute findings. I have read the above report and reviewed the images and agree with the findings.
[2018-05-09 14:00] LABS: Urine Appearance Clear; Urine Blood Negative (Negative); Urine Color Yellow; Urine Ketones Negative (Negative); Urine Protein Negative (Negative); Urine Specific Gravity 1.017 (1.010-1.030); Urine Urobilinogen Negative (Negative)
[2018-05-09] MEDS ORDERED: Citalopram TAB* 20 MG PO ONE (18:35)
[2018-05-09] MEDS ORDERED: Gabapentin CAP(*) 300 MG PO ONE (18:35)
[2018-05-09] MEDS ORDERED: busPIRone TAB* 15 MG PO ONE (18:38)
[2018-05-09] MEDS ORDERED: busPIRone TAB* 5 MG PO ONE (19:00)
[2018-05-09] MEDS ORDERED: LORazepam INJ* 2 MG/ML 1 ML VIAL ONE (19:15)
[2018-05-09] MEDS ORDERED: Haloperidol INJ IV/IM* 5 MG/ML AMP ONE (19:15)
[2018-05-09] MEDS ORDERED: diPHENhydraMINE IV* 50 MG/ML 1 ml VIAL (BENADRYL) ONE (19:15)
--- NOTE | 2018-05-09 19:30 | PN ---
ED Flex Patient Progress Note Subjective: This is a 37 year-old M who is pending discharge to home per notes from Flex staff. Pt's case was reviewed earlier today by Dr. Hays and Dr. Diggs. D/c pending pt waking up and contact of police for his escorted departure. He was initially seen for SI and a head injury of unknown origin. Brain CT w/o acute findings. Flex staff reports he's been resting all day and refusing vitals. He is agitated but has remained in his room throughout the day. His labs were reviewed from initial intake and he appears to have an elevated WBC's and neutrophils. When asked if he has pain anywhere or feels ill, he reports "my balls are swollen, they haven't been sat on in a while". He further reports productive cough x months and thinks he's "dying". When asked about his testicles in further details, he laughs and reports "I was joking". No complaints offered otherwise. When asked how he feels about going home, admits he doesn't have a home - has been staying in random places past few weeks. Does not recall details of why he came in last night and does not recall speaking with Dr. Diggs today. Reports he feels like killing everyone. When asked if he is serious he reports "yes". When asked if he has a plan, he states "none of your business". When asked if he has had any recent stressors, he states "I don't know". WHen asked if he's had any new substances he reports "marijuana, marijuana, marijuana, marijuana... " and he states he smokes lots of this and it's helpful for his condition. Agrees to a CXR to assess for PNA. Objective: Vitals: Pt refused vital signs. Pt initially lying on stretcher. Upon entering room with security, pt jumps from bed erratically and throws his dining tray to the floor then flees the room. Security keeps him contained w/o contact, explains where he is and gently guide him back to his room which he does without issue. He returns to his bed and covers himself with his sheet. He allows staff to clean a small wound (appears to be a superficial healing blister wound on his medial MTP joint of Lt foot - wiped with antiseptic and covered with triple anbx and bandaid). Alert and oriented x3. Heart: S1/S2, RRR Lungs: CTA, breathing easily INTEG: as above - also has abrasion on face as mentioned upon initial evaluation KIRILL: moving all extremities w/o difficulty AB: + BS, soft PSYCH: guarded, agitated but cooperative - requesting medication to calm him down. He admits he's been taking his medications daily and has not had his routine doses yet today. Will order. Assessment: 1) SI/HI 2) Mood d/o - organic vs. drug induced as he has 2 substances on board ( marijuana and benzo's) 3) Abrasion to Lt foot 4) cough - sounds clear on auscultation but will XR given prolonged cough, h/o smoking and elevated WBC (the latter could be from illicit drugs on board) Plan: 1) Pending psychiatric re-evaluation given new findings of HI and ongoing agitation despite rest over 17 hours while here. He appears to be cooperative at this time however this could change given his mood. Discussed with Dr. Hays who agrees to re-eval with Dr. Diggs. 2) as above 3) cleaned and dressed as above - wound dressing change daily 4) CXR ordered Vital Signs Temp Pulse Resp BP Pulse Ox 98.4 F 86 16 110/70 97 05/09/18 03:49 05/09/18 03:49 05/09/18 03:49 05/09/18 03:49 05/09/18 03:49 Lab Results - Entire Visit 05/09/18 05/09/18 05/09/18 12:59 12:59 01:19 WBC RBC Hgb Hct MCV MCH MCHC RDW Plt Count MPV Neut % (Auto) Lymph % (Auto) [place] % (Auto) Eos % (Auto) Baso % (Auto) Absolute Neuts (auto) Absolute Lymphs (auto) Absolute Monos (auto) Absolute Eos (auto) Absolute Basos (auto) Absolute Nucleated RBC Nucleated RBC % Sodium 139 Potassium 4.0 Chloride 106 Carbon Dioxide 23 Anion Gap 10 BUN 15 Creatinine 0.90 Est GFR ( Amer) 114.3 Est GFR (Non-Af Amer) 94.4 BUN/Creatinine Ratio 16.7 Glucose 97 Calcium 9.1 Total Bilirubin 0.40 AST 22 ALT 22 Alkaline Phosphatase 95 Total Protein 7.3 Albumin 4.8 Globulin 2.5 Albumin/Globulin Ratio 1.9 TSH 0.47 Urine Color Yellow Urine Appearance Clear Urine pH 5.0 Ur Specific [place] 1.017 Urine Protein Negative Urine Ketones Negative Urine Blood Negative Urine Nitrate Negative Urine Bilirubin Negative Urine Urobilinogen Negative Ur Leukocyte Esterase Negative Urine Glucose Negative Urine Ascorbic Acid * A Salicylates < 2.50 Urine Opiates Screen None detected Acetaminophen < 15 Ur Barbiturates Screen None detected Ur Phencyclidine Scrn None detected Ur Amphetamines Screen None detected U Benzodiazepines Scrn Presumptive positive A Urine Cocaine Screen None detected U Cannabinoids Screen Presumptive positive A Serum Alcohol 21 H 05/09/18 01:19 WBC 16.3 H RBC 5.32 Hgb 16.6 Hct 48 MCV 91 MCH 31 MCHC 34 RDW 13 Plt Count 238 MPV 8.3 Neut % (Auto) 81.5 Lymph % (Auto) 13.1 L [place] % (Auto) 4.3 Eos % (Auto) 0.6 Baso % (Auto) 0.5 Absolute Neuts (auto) 13.3 H Absolute Lymphs (auto) 2.1 Absolute Monos (auto) 0.7 Absolute Eos (auto) 0.1 Absolute Basos (auto) 0.1 Absolute Nucleated RBC 0 Nucleated RBC % 0 Sodium Potassium Chloride Carbon Dioxide Anion Gap BUN Creatinine Est GFR ( Amer) Est GFR (Non-Af Amer) BUN/Creatinine Ratio Glucose Calcium Total Bilirubin AST ALT Alkaline Phosphatase Total Protein Albumin Globulin Albumin/Globulin Ratio TSH Urine Color Urine Appearance Urine pH Ur Specific [place] Urine Protein Urine Ketones Urine Blood Urine Nitrate Urine Bilirubin Urine Urobilinogen Ur Leukocyte Esterase Urine Glucose Urine Ascorbic Acid Salicylates Urine Opiates Screen Acetaminophen Ur Barbiturates Screen Ur Phencyclidine Scrn Ur Amphetamines Screen U Benzodiazepines Scrn Urine Cocaine Screen U Cannabinoids Screen Serum Alcohol
--- NOTE | 2018-05-09 19:43 | ED ---
Progress - Progress Note Progress Note: This patient was signed out from Dr. Hays awaiting MHE and dispo. The patient will be admitted to Dr. Diggs for depression and SI. CT HEAD- 1. No acute intracranial abnormality. 2. No change from the comparison study. Dr. Pickering has reviewed this report. - EKG/XRAY/CT XRAY: chest - ED physician- No acute process, pending offical report. Re-Evaluation - Re-Evaluation First Eval Re-Evaluation Time: 19:12 Change: Worse Comment: Pt was hitting his head off the wall because he states he wanted to . Pt was transferred from the flex into room 8. He will not respond to questions at this time. He is screaming, spitting, and being combative. Restraints were ordered, patient was medically sedated, and he will be sent to CT r/o any damage due to him hitting his head. Second Eval Re-Evaluation Time: 22:08 Change: Unchanged Comment: I discussed patient care with Dr. Diggs who accepted the patient for admission. Course/Dx - Diagnoses Provider Diagnoses: Depression, Suicidal ideations Discharge - Sign-Out/Discharge Documenting (check all that apply): Patient Departure - admitted , Receiving Sign-Out Receiving patient FROM: Holland Hays - Discharge Plan Condition: Fair Disposition: PSYCHIATRIC FACILITY-[facility]
[2018-05-09] MEDS ORDERED: KETAMINE HCL* 50 MG/ML 10 ML VIAL ONE (21:04)
--- NOTE | 2018-05-09 22:17 | RAD ---
INDICATION: Intracranial injury COMPARISON: CT brain May 09, 2018 obtained at 0132 hours TECHNIQUE: Noncontrast axial source images were acquired from the skull base to the vertex. FINDINGS: Ventricles/sulci: The ventricles and cisterns are normal in size and configuration for age. Brain parenchyma: There is no focal parenchymal finding, evidence of intracranial mass, or intracranial mass effect. Intracranial hemorrhage:None. Extra-axial spaces: There are no abnormal extra axial fluid collections or evidence of extra-axial mass. Calvarium: There is no calvarial fracture or other calvarial abnormality. Scalp: There is no evidence of scalp or extracalvarial soft tissue abnormality. Paranasal sinuses/mastoid: The paranasal sinuses and mastoid air cells are clear. Other: None. IMPRESSION: NO ACUTE INTRACRANIAL FINDINGS. NO INTERVAL CHANGES FROM THE RECENT EXAMINATION.
[2018-05-10] MEDS ORDERED: LORazepam TAB(*) 1 MG PO PRN (00:32)
[2018-05-10] MEDS ORDERED: Acetaminophen TAB* 325 MG PO PRN (00:32)
[2018-05-10] MEDS ORDERED: Mouth Piece, Nicotine* 1 EACH CARTRIDGE INH SCH (00:32)
[2018-05-10] MEDS ORDERED: traZODone TAB* 100 MG PO PRN (00:34)
--- NOTE | 2018-05-10 07:26 | RAD ---
INDICATION: Productive cough COMPARISON: December 28, 2017 TECHNIQUE: An AP portable view obtained at 1945 hours is submitted. FINDINGS: Bones/Soft Tissues: There are no acute bony findings. Cardiomediastinal: The cardiomediastinal silhouette is normal. Lungs: There are no infiltrates. Pleura: There are no pleural effusions. Other: None IMPRESSION: NORMAL CHEST. R0
[2018-05-10] MEDS: Gabapentin CAP(*) 300 MG PO SCH ×3 (10:28→20:55)
[2018-05-10] MEDS: busPIRone TAB* 10 MG PO SCH ×3 (10:28→20:56)
[2018-05-10] MEDS: Citalopram TAB* 20 MG PO SCH (10:28)
[2018-05-10] MEDS: Vitamin THERAPEUTIC TAB PO SCH (10:29)
[2018-05-10] MEDS: OLANzapine TAB* 10 MG PO SCH (10:29)
[2018-05-10] MEDS: clonazePAM TAB(*) 1 MG PO SCH ×2 (13:42→20:56)
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
[2018-05-10] MEDS ORDERED: clonazePAM TAB(*) 0.5 MG PO SCH (14:00)
[2018-05-11] MEDS: Nicotine Inhaler* 10 MG AMP INH PRN ×3 (08:20→21:01)
[2018-05-11] MEDS: Vitamin THERAPEUTIC TAB PO SCH (08:21)
[2018-05-11] MEDS: OLANzapine TAB* 10 MG PO SCH (08:21)
[2018-05-11] MEDS: clonazePAM TAB(*) 1 MG PO SCH ×2 (08:21→20:12)
[2018-05-11] MEDS: Citalopram TAB* 20 MG PO SCH (08:22)
[2018-05-11] MEDS: busPIRone TAB* 10 MG PO SCH ×3 (08:22→20:14)
[2018-05-11] MEDS: Gabapentin CAP(*) 300 MG PO SCH ×3 (08:22→20:13)
[2018-05-11] MEDS: Nicotine GUM* 2 MG PO PRN (21:01)
[2018-05-11] MEDS: Al Hydrox/Mg Hydrox/Simet LIQ* 30 ML UDC PO PRN (23:43)
[2018-05-12] MEDS: Haloperidol TAB* 5 MG PO PRN ×3 (03:43→17:52)
[2018-05-12] MEDS: Nicotine GUM* 2 MG PO PRN ×3 (03:43→17:09)
[2018-05-12] MEDS: clonazePAM TAB(*) 1 MG PO SCH ×2 (08:05→20:18)
[2018-05-12] MEDS: OLANzapine TAB* 10 MG PO SCH (08:06)
[2018-05-12] MEDS: busPIRone TAB* 10 MG PO SCH ×3 (08:06→20:16)
[2018-05-12] MEDS: Gabapentin CAP(*) 300 MG PO SCH ×3 (08:06→20:17)
[2018-05-12] MEDS: Vitamin THERAPEUTIC TAB PO SCH (08:07)
[2018-05-12] MEDS: Citalopram TAB* 20 MG PO SCH (08:07)
[2018-05-12] MEDS: Nicotine Inhaler* 10 MG AMP INH PRN ×2 (11:45→17:09)
--- NOTE | 2018-05-12 17:50 | PN ---
Subjective - Subjective Date of Service: 05/12/18 Subjective: Yovana endorses improvements in sleep, mood and anxiety for which he credit addition of Klonopin, he accepts redirection when I referred him to his primary provider in response to his asking for increased in the dose of Klonopin. He deneen SI/HI. Per staff, he is vibible in the milieu and adherent to unit;s routines. Objective - Appearance Appearance: Healthy Appearing Dysmorphic Features: No Hygiene: Normal Grooming: Well Kept - Behavior Psychomotor Activities: Normal Exhibits Abnormal Movement: No - Attitude and Relatedness Attitude and Relatedness: Manipulative Eye Contact: Fair - Speech Quality: Unpressured Latencies: Normal Quantity: Appropriate - Mood Patient's Decription of Mood: better - Affect Observed Affect: Fair Affect Consistent with: Euthymia - Thought Process Patient's Thought Process: Coherent, Goal Directed Thought Content: No Passive Wish, No Suicidal Planning, No Homicidal Ideation, No Paranoid Ideation - Sensorium Experiencing Hallucinations: No, Sensorium is Clear - Level of Consciousness Level of Consciousness: Alert Orientation: Yes Intact - Impulse Control Impulse Control: Intact - Insight and Judgement Insight and Judgement: Poor - Group Participation Particating in Group Activities: Yes - Medication Management Medication Management Adherence: Yes Assessment - Assessment Merits Inpatient Hospitalization: Consolidate Improvements, For Discharge Planning Inpatient DSM-V Dx: F19.14 Clinical Impression: Amalia is stabilizing in this structured setting with lowered distress level, improvement in presenting symptoms, resolution of SI/HI. He is tolerating trials of prescribed medications. Plan - Plan Treatment Plan: Name: YOVANA SHELTON Birthdate: 1980 [id number] Medications: Current Medications Acetaminophen (Tylenol Tab*) 650 mg PO Q4H PRN PRN Reason: PAIN or TEMP > 101 F Last Admin: 05/11/18 20:14 Dose: 650 mg Al Hydrox/Mg Hydrox/Simethicone (Maalox Plus*) 30 ml PO Q4H PRN PRN Reason: INDIGESTION Last Admin: 05/11/18 23:43 Dose: 30 ml Buspirone HCl (Buspar Tab*) 10 mg PO TID [facility] Last Admin: 05/12/18 14:32 Dose: 10 mg Citalopram Hydrobromide (Celexa Tab*) 20 mg PO DAILY [facility] Last Admin: 05/12/18 08:07 Dose: 20 mg Clonazepam (Klonopin Tab(*)) 1 mg PO BID [facility] Last Admin: 05/12/18 08:05 Dose: 1 mg Device (Nicotine Mouth Piece*) 1 each INH .CARTRIDGE [facility] Last Admin: 05/11/18 08:20 Dose: 1 each Diphenhydramine HCl (Benadryl Po*) 50 mg PO Q6H PRN PRN Reason: AGITATION Last Admin: 05/12/18 11:08 Dose: 50 mg Gabapentin (Neurontin Cap(*)) 600 mg PO TID [facility] Last Admin: 05/12/18 14:33 Dose: 600 mg Haloperidol (Haldol Tab*) 5 mg PO Q6H PRN PRN Reason: AGITATION Last Admin: 05/12/18 11:09 Dose: 5 mg Multivitamins (Theragran Tab*) 1 tab PO DAILY [facility] Last Admin: 05/12/18 08:07 Dose: 1 tab Nicotine (Nicotine Inhaler*) 10 mg INH Q2H PRN PRN Reason: CRAVING Last Admin: 05/12/18 17:09 Dose: 10 mg Nicotine Polacrilex (Nicotine Gum*) 2 mg PO Q2H PRN PRN Reason: CRAVING Last Admin: 05/12/18 17:09 Dose: 2 mg Olanzapine (Zyprexa Tab*) 10 mg PO DAILY [facility] Last Admin: 05/12/18 08:06 Dose: 10 mg Trazodone HCl (Desyrel Tab*) 100 mg PO BEDTIME PRN PRN Reason: INSOMNIA Last Admin: 05/11/18 23:43 Dose: 100 mg - Discharge Plan Discharge Plan: Drug/Alcohol Rehab Outpatient Program: [facility]
[2018-05-12] MEDS: Al Hydrox/Mg Hydrox/Simet LIQ* 30 ML UDC PO PRN (20:19)
[2018-05-13] MEDS: Haloperidol TAB* 5 MG PO PRN ×3 (01:50→20:30)
[2018-05-13 08:13] VITALS: BP 108/70
[2018-05-13] MEDS: clonazePAM TAB(*) 1 MG PO SCH (08:15)
[2018-05-13] MEDS: Citalopram TAB* 20 MG PO SCH (08:17)
[2018-05-13] MEDS: busPIRone TAB* 10 MG PO SCH ×3 (08:17→20:23)
[2018-05-13] MEDS: Gabapentin CAP(*) 300 MG PO SCH ×3 (08:17→20:23)
[2018-05-13] MEDS: OLANzapine TAB* 10 MG PO SCH (08:18)
[2018-05-13] MEDS: Vitamin THERAPEUTIC TAB PO SCH (08:18)
[2018-05-13] MEDS: Nicotine Inhaler* 10 MG AMP INH PRN ×4 (08:29→21:06)
[2018-05-13] MEDS: Nicotine GUM* 2 MG PO PRN ×4 (08:29→21:06)
--- NOTE | 2018-05-13 11:44 | PN ---
[facility]: Group Therapy Note - Service Type Service Type: [id number] Group Psychotherapy - Cognitive Behavioral Group Therapy ( CBT):Patient was attentive and participatory in CBT programming this morning, and remained in good behavioral control. Patient expressed positive insights regarding relevant treatment interventions and goals.
--- NOTE | 2018-05-13 14:09 | PN ---
Subjective - Subjective Date of Service: 05/13/18 Service Type: 90942 Hosp care 15 min low complexity Subjective: Patient was seen by self, discussed with treatment team, chart was reviewed. Patient has been compliant with his medications, no reported side effects. Patient reports improvement in his symptoms and requesting for Klonopin to be TID for unspecified reason. Patient mood was table this morning and behavior was in control. Patient has been asking for PRN medication and was reportedly sleeping most of the time on weekend. Patient reports insufficent sleep at bedtime and hence he is sleeping during the day. patient was educated about sleep hygiene. Patient eating has been good. Patient has been superficially cooperative with staff, medication seeking behavior. Patient behavior has been in control and was encouraged to follow up with therapy to help learn coping strategies to manage distress. Patient was counseled about drug /alcohol abuse. Patient has been reporting no suicidal or homicidal ideation. No psychotic symptoms of delusions or hallucinations. Patient also reported his difficulties with homelessness and working with social staff worker on that. Patient reportedly had a charge of likely having Klonopin without prescription on him and will be in State Police custody upon discharge. Objective - Appearance Appearance: Healthy Appearing Dysmorphic Features: No Hygiene: Normal Grooming: Fairly Well Kept - Behavior Psychomotor Activities: Normal Exhibits Abnormal Movement: No - Attitude and Relatedness Attitude and Relatedness: Superficially Cooperative Eye Contact: Fair - Speech Quality: Unpressured Latencies: Normal Quantity: Appropriate - Mood Patient's Decription of Mood: "Okay" - Affect Observed Affect: Fair Affect Consistent with: Euthymia - Thought Process Patient's Thought Process: Goal Directed Thought Content: No Passive Wish, No Suicidal Planning, No Homicidal Ideation, No Paranoid Ideation - Sensorium Experiencing Hallucinations: No, Sensorium is Clear Type of Hallucinations: Visual: No, Auditory: No, Command: No - Level of Consciousness Level of Consciousness: Alert Orientation: Yes Intact, Yes Orientated to Time, Yes Orientated to Place, Yes Orientated to Person - Impulse Control Impulse Control: Intact - Insight and Judgement Insight and Judgement: Poor - with some improvement - Group Participation Particating in Group Activities: Yes - Medication Management Medication Management Adherence: Yes Assessment - Assessment Merits Inpatient Hospitalization: For Immediate Safety, For Stabilization, For Discharge Planning Inpatient DSM-V Dx: F19.14 Clinical Impression: Patient with history of Mood Disorder with heavy substance abuse and alcohol abuse. Patient currently admitted due to worsening of substance abuse, was found trespassing and arrested by police and made suicidal and homicidal statements in E.D and was admitted to inpatient unit. Patient reports that has also struggled with his housing situation. Patient is a danger to self and others if discharged hence will be stabilized on inpatient unit with medication adjustments and therapy. Plan - Plan Treatment Plan: Name: YOVANA SHELTON Birthdate: 1980 [id number] - Patient continues to be hospitalized due to mood instability/substance abuse, making vague si/hi statements. - Patient's medications were adjusted after informed consent with increment in Zyprexa to 15 mg HS and Klonopin was reduced to 0.5 mg BID, reduced Haldol PRN to Q8HRS, continued with other medications. - Patient will be monitored for improvement and side effects. Risk and benefits were discussed. - Patient was encouraged to continue his participation in the milieu, group and individual therapy. Medications: Current Medications Acetaminophen (Tylenol Tab*) 650 mg PO Q4H PRN PRN Reason: PAIN or TEMP > 101 F Last Admin: 05/11/18 20:14 Dose: 650 mg Al Hydrox/Mg Hydrox/Simethicone (Maalox Plus*) 30 ml PO Q4H PRN PRN Reason: INDIGESTION Last Admin: 05/12/18 20:19 Dose: 30 ml Buspirone HCl (Buspar Tab*) 10 mg PO TID [facility] Last Admin: 05/13/18 08:17 Dose: 10 mg Citalopram Hydrobromide (Celexa Tab*) 20 mg PO DAILY [facility] Last Admin: 05/13/18 08:17 Dose: 20 mg Clonazepam (Klonopin Tab(*)) 0.5 mg PO BID [facility] Device (Nicotine Mouth Piece*) 1 each INH .CARTRIDGE [facility] Last Admin: 05/11/18 08:20 Dose: 1 each Diphenhydramine HCl (Benadryl Po*) 50 mg PO Q6H PRN PRN Reason: AGITATION Last Admin: 05/13/18 11:21 Dose: 50 mg Gabapentin (Neurontin Cap(*)) 600 mg PO TID [facility] Last Admin: 05/13/18 08:17 Dose: 600 mg Haloperidol (Haldol Tab*) 5 mg PO Q8H PRN PRN Reason: AGITATION Multivitamins (Theragran Tab*) 1 tab PO DAILY [facility] Last Admin: 05/13/18 08:18 Dose: 1 tab Nicotine (Nicotine Inhaler*) 10 mg INH Q2H PRN PRN Reason: CRAVING Last Admin: 05/13/18 11:22 Dose: 10 mg Nicotine Polacrilex (Nicotine Gum*) 2 mg PO Q2H PRN PRN Reason: CRAVING Last Admin: 05/13/18 11:17 Dose: 2 mg Olanzapine (Zyprexa Tab*) 15 mg PO DAILY [facility] Trazodone HCl (Desyrel Tab*) 100 mg PO BEDTIME PRN PRN Reason: INSOMNIA Last Admin: 05/11/18 23:43 Dose: 100 mg
[2018-05-13] MEDS: Al Hydrox/Mg Hydrox/Simet LIQ* 30 ML UDC PO PRN (15:45)
[2018-05-13] MEDS: clonazePAM TAB(*) 0.5 MG PO SCH (20:23)
[2018-05-14] MEDS: Gabapentin CAP(*) 300 MG PO SCH ×2 (08:15→14:28)
[2018-05-14] MEDS: clonazePAM TAB(*) 0.5 MG PO SCH (08:16)
[2018-05-14] MEDS: busPIRone TAB* 10 MG PO SCH ×2 (08:16→14:28)
[2018-05-14] MEDS: Vitamin THERAPEUTIC TAB PO SCH (08:16)
[2018-05-14] MEDS: Citalopram TAB* 20 MG PO SCH (08:17)
[2018-05-14] MEDS: Nicotine Inhaler* 10 MG AMP INH PRN ×2 (08:18→11:11)
[2018-05-14] MEDS: Nicotine GUM* 2 MG PO PRN (08:19)
[2018-05-14] MEDS ORDERED: OLANzapine TAB* 5 MG PO SCH (09:00)
[2018-05-14] MEDS: Al Hydrox/Mg Hydrox/Simet LIQ* 30 ML UDC PO PRN (11:09)
[2018-05-14] MEDS: Haloperidol TAB* 5 MG PO PRN (11:09)
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
== END 2018-05-14 14:30 | DRG 897 ==
LOC: ED 00:17 → BSU 22:27
PROVIDERS: ADMIT Psychiatry & Neurology Psychiatry; ATTEND Psychiatry & Neurology Psychiatry
PROC: GZHZZZZ Group Psychotherapy (ICD-10-PCS; principal; 2018-05-13)
DX: F19.14 Other psychoactive substance abuse with psychoactive substance-induced mood disorder (principal); R45.851 Suicidal ideations; R45.850 Homicidal ideations; S00.83XA Contusion of other part of head, initial encounter; X58.XXXA Exposure to other specified factors, initial encounter; F12.10 Cannabis abuse, uncomplicated; F10.10 Alcohol abuse, uncomplicated; F13.10 Sedative, hypnotic or anxiolytic abuse, uncomplicated; F60.2 Antisocial personality disorder; F41.9 Anxiety disorder, unspecified; I10 Essential (primary) hypertension; M79.7 Fibromyalgia; F41.0 Panic disorder [episodic paroxysmal anxiety]; F43.10 Post-traumatic stress disorder, unspecified; F20.9 Schizophrenia, unspecified; F31.9 Bipolar disorder, unspecified; Z82.49 Family history of ischemic heart disease and other diseases of the circulatory system; Z59.0 Homelessness; Z56.0 Unemployment, unspecified; Z91.19 Patient's noncompliance with other medical treatment and regimen; Z91.14 Patient's other noncompliance with medication regimen; Z78.1 Physical restraint status; Z91.5 Personal history of self-harm; Z81.8 Family history of other mental and behavioral disorders; Z81.1 Family history of alcohol abuse and dependence; Z80.9 Family history of malignant neoplasm, unspecified; Y92.9 Unspecified place or not applicable; Z87.820 Personal history of traumatic brain injury; Z83.3 Family history of diabetes mellitus
CPT/HCPCS: 36415; 70450; 71045; 80053; 80061; 80307; 80320; 80329; 81003; 83036; 84443; 85025; 99285; A9270-GY; G0480; J1200; J1630; J2060

== ENCOUNTER 2018-05-16 01:05 | Inpatient (IN) | payer MEDICARE, MEDICAID ==
[2018-05-16] MEDS ORDERED: chlordiazePOXIDE CAP* 25 MG ONE ×2 (02:14→04:09)
[2018-05-16] MEDS ORDERED: Nicotine Inhaler* 10 MG AMP ONE (04:21)
[2018-05-16] MEDS ORDERED: Mouth Piece, Nicotine* 1 EACH CARTRIDGE ONE (04:21)
[2018-05-16] MEDS ORDERED: hydrOXYzine HCL TAB* 50 MG PO ONE (05:22)
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
[2018-05-16 05:54] LABS: EGFR Non-African American 71.2 (>60)
[2018-05-16 05:57] LABS: ABS Basophils 0.1 10^3/ul (0-0.2); ABS Eosinophils 0 10^3/ul (0-0.6); ABS Lymphocytes 1.9 10^3/ul (1.0-4.8); ABS Monocytes 0.6 10^3/ul (0-0.8); ABS Neutrophils 7.5 10^3/ul (1.5-7.7); ABS Nucleated RBC 0 10^3/ul; Eosinophil % 0.5 % (0-6); Hematocrit 43 % (42-52); Hemoglobin 15.3 g/dl (14.0-18.0); Lymphocyte % 19.1 % (25-47); Mean Corpuscular HGB Conc 35 g/dl (31-36); Mean Corpuscular Hemoglobin 32 pg (27-31); Mean Corpuscular Volume 90 fL (80-94); Mean Platelet Volume 8.2 um3 (7.4-10.4); Nucleated Red Blood Cells % 0.1; Platelet Count 223 10^3/ul (150-450); Red Blood Count 4.81 10^6/ul (4.00-5.40); Red Cell Distribution Width 12 % (10.5-15); White Blood Count 10.1 10^3/ul (3.5-10.8)
[2018-05-16 05:58] LABS: Urine Appearance Cloudy; Urine Color Yellow; Urine Ketones Negative (Negative); Urine Protein Negative (Negative); Urine Specific Gravity 1.015 (1.010-1.030); Urine Urobilinogen Negative (Negative)
[2018-05-16 05:59] LABS: Urine Blood Negative (Negative)
[2018-05-16] MEDS: Nicotine Inhaler* 10 MG AMP INH PRN (06:34)
--- NOTE | 2018-05-16 07:07 | ED ---
Progress - Progress Note Progress Note: Sign out from overnight. At discharge, the patient was given back his posessions. He poured gabapentin pills in in mouth and put his belt around his neck. Poison control consulted; 6 hours observation. Patient requested ativan for agitation and agreed to take charcoal. The ativan was given IM. Re-Evaluation - Re-Evaluation First Eval Re-Evaluation Time: 17:08 Change: Worse Comment: Pt was informed of discharge, decided to try to swallow his whole bottle of pills and put a belt around his neck. Pill count, put at least 8 in his mouth, 7 were spat out. unknown amount of pills swallowed. Course/Dx - Course Course Of Treatment: Second MHE pending after medical clearance. - Diagnoses Provider Diagnoses: Suicide ideation, Alcohol abuse, Gabapentin overdose - Provider Notifications Discussed Care Of Patient With: Tariq Diggs Time Discussed With Above Provider: 17:00 Instructed by Provider To: Other - Per psychiatric non emergency services ambulance driver ángela, recommend discharge with dx depression. Discharge - Sign-Out/Discharge Documenting (check all that apply): Patient Departure - discharge, Sign-Out Patient, Receiving Sign-Out Signing out patient TO: Estrada Harris Receiving patient FROM: Amos Santamaria - Discharge Plan Condition: Stable [facility] [place] Education Materials: Depression (DC), Suicide Prevention (ED) Referrals: [facility] - Residential Facility [Outside] [facility] [Outside] No Primary Care Phys,NOPCP [Primary Care Provider] - - Billing Disposition and Condition Condition: STABLE Disposition: Psychiatric Facility [facility] [place] - Attestation Statements Document Initiated by Aida: Yes Documenting Scribe: Peter Noble Provider For Whom Aida is Documenting (Include Credential): Dr. Robert Desai MD Scribe Attestation: Peter Charlton scryayoed for Dr. Robert Desai MD on 05/16/18 at 1754. Scribe Documentation Reviewed: Yes Provider Attestation: The documentation as recorded by the Peter han accurately reflects the service I personally performed and the decisions made by me, Dr. Robert Desai MD
[2018-05-16] MEDS ORDERED: LORazepam TAB(*) 1 MG PO ONE ×2 (07:31→17:22)
[2018-05-16] MEDS ORDERED: Al Hydrox/Mg Hydrox/Simet LIQ* 30 ML UDC PO ONE (08:10)
[2018-05-16] MEDS ORDERED: ALPRAZolam TAB* 0.25 MG PO ONE (10:07)
[2018-05-16] MEDS ORDERED: Nicotine PATCH 21 MG/24 HR* PATCH TRANSDERM ONE (10:07)
[2018-05-16] MEDS ORDERED: Ibuprofen TAB* 600 MG PO ONE (10:07)
--- NOTE | 2018-05-16 10:50 | RAD ---
HISTORY: LAI COMPARISONS: May 09, 2018 TECHNIQUE: Multiple contiguous axial CT scans were obtained of the head without intravenous contrast. FINDINGS: HEMORRHAGE/INFARCT: There is no hemorrhage or acute infarct. MASSES/SHIFT: There is no mass or shift. EXTRA-AXIAL SPACES: There are no extra-axial fluid collections. SULCI AND VENTRICLES: The sulci and ventricles are normal in size and position for the patient's stated age. CEREBRUM: There are no focal parenchymal abnormalities. BRAINSTEM: There are no focal parenchymal abnormalities. CEREBELLUM: There are no focal parenchymal abnormalities. VESSELS: The vessels are grossly normal. PARANASAL SINUSES: The paranasal sinuses are clear. ORBITS: The orbits are unremarkable. BONES AND SOFT TISSUE: No bone or soft tissue abnormalities are noted. OTHER: None IMPRESSION: NO ACUTE INTRACRANIAL PATHOLOGY.
[2018-05-16] MEDS ORDERED: Charcoal ACTIVATED* 25 GM/120 ML BTL PO ONE (17:46)
[2018-05-16] MEDS ORDERED: LORazepam INJ* 2 MG/ML 1 ML VIAL IM ONE (17:49)
--- NOTE | 2018-05-16 23:22 | ED ---
Progress - Progress Note Progress Note: Sign out from Robert Desai MD, day shift. [place] [facility] [place] beginning of the [place] shift. Flex nurse stated that pt wanted ativan at 0413. 0552 Pt requested nicotine patch even though he already has nicotine inhaler, request denied. Course/Dx - Course Course Of Treatment: Assumed care from Dr. Desai. Patient had been evaluated and was to be discharged but then took a purposeful overdose of gabapentin after trying to choke himself with a belt. He was observed for several hours with no effect of the medication. Poison control had followed up with him. He was then cleared to go back to mental health worries observed through the night. He is very demanding asking for Ativan, Xanax, various methods of nicotine replacement. He is to be evaluated by the psychiatrist in the morning. He will be signed out to the [facility] ER physician Dr. Mcneal. - Diagnoses Provider Diagnoses: Gabapentin overdose, Suicide gesture, Unspecified mood [affective] disorder, Substance abuse Discharge - Sign-Out/Discharge Documenting (check all that apply): Sign-Out Patient, Receiving Sign-Out Signing out patient TO: Morris Mcneal Receiving patient FROM: Robert Desai - Discharge Plan Condition: Stable [place] [place] Education Materials: Depression (DC), Suicide Prevention (ED) Referrals: [facility] - Residential Facility [Outside] [facility] [Outside] - Billing Disposition and Condition Condition: STABLE Disposition: [place] [facility] [place] Attestation Statements Document Initiated by Scribe: Yes Documenting Scribe: Evelia Weeks Provider For Whom Aida is Documenting (Include Credential): Estrada Harris MD. Scribe Attestation: Evelia Charlton, scribed for Estrada Harris MD. on 05/17/18 at 0624. Scribe Documentation Reviewed: Yes Provider Attestation: The documentation as recorded by the Evelia han accurately reflects the service I personally performed and the decisions made by , Estrada Harris MD.
[2018-05-17] MEDS ORDERED: Nicotine Inhaler* 10 MG AMP INH ONE (01:07)
[2018-05-17] MEDS ORDERED: Mouth Piece, Nicotine* 1 EACH CARTRIDGE INH PRN (01:07)
[2018-05-17] MEDS: Mouth Piece, Nicotine* 1 EACH CARTRIDGE INH PRN (01:15)
[2018-05-17] MEDS ORDERED: LORazepam TAB(*) 1 MG PO ONE (04:16)
[2018-05-17] MEDS: Nicotine Inhaler* 10 MG AMP INH PRN ×2 (04:28→11:08)
--- NOTE | 2018-05-17 07:37 | PN ---
ED Flex Patient Progress Note Date of Service: 05/17/18 Subjective: This is a 37 year-old M who is pending observed secondary to suicidal ideation. walked into patient having sheet wrapped around neck. security helped removed the sheet and patient was red in the face. Objective: Vitals: Most recent vital signs documented below. General NAD, Alert and oriented x3. speaking full sentences Heart: rrr at 90bpm Lungs: CTA or with rales, rhonchi, wheezing Laboratory: Current laboratory results documented below. Assessment: suicidal ideation Plan: Pending psychiatric to observe will follow up daily until dispo made condition:Stable dispo: observation Vital Signs Temp Pulse Resp BP Pulse Ox 99.2 F 92 17 115/71 96 05/16/18 20:51 05/16/18 20:51 05/17/18 04:24 05/16/18 20:51 05/16/18 20:51 Lab Results - Entire Visit 05/16/18 05/16/18 05/16/18 02:32 02:32 02:32 WBC RBC Hgb Hct MCV MCH MCHC RDW Plt Count MPV Neut % (Auto) Lymph % (Auto) [place] % (Auto) Eos % (Auto) Baso % (Auto) Absolute Neuts (auto) Absolute Lymphs (auto) Absolute Monos (auto) Absolute Eos (auto) Absolute Basos (auto) Absolute Nucleated RBC Nucleated RBC % Sodium 141 Potassium 3.5 Chloride 107 Carbon Dioxide 26 Anion Gap 8 BUN 11 Creatinine 1.15 Est GFR ( Amer) 86.1 Est GFR (Non-Af Amer) 71.2 BUN/Creatinine Ratio 9.6 Glucose 119 H Calcium 9.1 Total Bilirubin 0.30 AST 26 ALT 34 Alkaline Phosphatase 88 Total Protein 6.7 Albumin 4.4 Globulin 2.3 Albumin/Globulin Ratio 1.9 Urine Color Yellow Urine Appearance Cloudy Urine pH 7 Ur Specific [place] 1.015 Urine Protein Negative Urine Ketones Negative Urine Blood Negative Urine Nitrate Negative Urine Bilirubin Negative Urine Urobilinogen Negative Ur Leukocyte Esterase Negative Urine Glucose Negative Urine Opiates Screen None detected Ur Barbiturates Screen None detected Ur Phencyclidine Scrn None detected Ur Amphetamines Screen None detected U Benzodiazepines Scrn None detected Urine Cocaine Screen None detected U Cannabinoids Screen None detected Serum Alcohol < 10 05/16/18 02:32 WBC 10.1 RBC 4.81 Hgb 15.3 Hct 43 MCV 90 MCH 32 H MCHC 35 RDW 12 Plt Count 223 MPV 8.2 Neut % (Auto) 73.9 Lymph % (Auto) 19.1 L [place] % (Auto) 5.8 Eos % (Auto) 0.5 Baso % (Auto) 0.7 Absolute Neuts (auto) 7.5 Absolute Lymphs (auto) 1.9 Absolute Monos (auto) 0.6 Absolute Eos (auto) 0 Absolute Basos (auto) 0.1 Absolute Nucleated RBC 0 Nucleated RBC % 0.1 Sodium Potassium Chloride Carbon Dioxide Anion Gap BUN Creatinine Est GFR ( Amer) Est GFR (Non-Af Amer) BUN/Creatinine Ratio Glucose Calcium Total Bilirubin AST ALT Alkaline Phosphatase Total Protein Albumin Globulin Albumin/Globulin Ratio Urine Color Urine Appearance Urine pH Ur Specific [place] Urine Protein Urine Ketones Urine Blood Urine Nitrate Urine Bilirubin Urine Urobilinogen Ur Leukocyte Esterase Urine Glucose Urine Opiates Screen Ur Barbiturates Screen Ur Phencyclidine Scrn Ur Amphetamines Screen U Benzodiazepines Scrn Urine Cocaine Screen U Cannabinoids Screen Serum Alcohol
[2018-05-17] MEDS ORDERED: Nicotine PATCH 7 MG/24 HR* PATCH TRANSDERM ONE (07:50)
[2018-05-17] MEDS ORDERED: Nicotine PATCH 21 MG/24 HR* PATCH ONE (07:55)
--- NOTE | 2018-05-17 10:43 | ED ---
Progress - Progress Note Progress Note: Patient was received as a sign-out from Dr. Harris at 0700. At 07, Ranjit Mitchell and FINN Drake walked into patients room where patient was found to have bed linen wrapped around neck. Linen was tethered to hospital bed railing. Patients fingers were noted to be wedged between bed linen and his throat. Security that was present assisted in removing bed linen. Patient was red in color and able to voluntarily cough and carry conversation. No LOC noted. 08: Dr. Diggs and Dr. Mcneal reviewed patients case. Patient will be admitted by Dr. Diggs on status with diagnosis of depressive disorder. - Consult/PCP Time Called: 14:00 Re-Evaluation - Re-Evaluation First Eval Re-Evaluation Time: 07:25 Comment: At 07, Ranjit Mitchell and FINN Drake walked into patients room where patient was found to have bed linen wrapped around neck. Linen was tethered to hospital bed railing. Patients fingers were noted to be wedged between bed linen and his throat. Security that was present assisted in removing bed linen. Patient was red in color and able to voluntarily cough and carry conversation. No LOC noted. Course/Dx - Course Course Of Treatment: Patient was received as a sign-out from Dr. Harris at 0700. At 07, Ranjit Drake walked into patients room where patient was found to have bed linen wrapped around neck. Linen was tethered to hospital bed railing. Patients fingers were noted to be wedged between bed linen and his throat. Security that was present assisted in removing bed linen. Patient was red in color and able to voluntarily cough and carry conversation. No LOC noted. 08: Dr. Diggs and Dr. Mcneal reviewed patients case. Patient will be admitted on status with diagnosis of depressive disorder. - Diagnoses Provider Diagnoses: Depressive disorder - Provider Notifications Discussed Care Of Patient With: Tariq Diggs Time Discussed With Above Provider: 08:41 Instructed by Provider To: Other - 0841: Dr. Diggs and Dr. Mcneal reviewed patients case. Patient will be admitted by Dr. Diggs on status with diagnosis of depressive disorder. Discharge - Sign-Out/Discharge Documenting (check all that apply): Patient Departure - admit, Receiving Sign- Out Signing out patient TO: Morris Mcneal Receiving patient FROM: Estrada Harris - Discharge Plan Condition: Good Disposition: [facility]AT[facility] [place] - Billing Disposition and Condition Condition: GOOD Disposition: Psychiatric Facility [facility] - Attestation Statements Document Initiated by Aida: Yes Documenting Scribe: Orville Palm Provider For Whom Aida is Documenting (Include Credential): Morris Mcneal M.D. Scribe Attestation: Orville Charlton, scribed for Morris Mcneal M.D. on 05/17/18 at 1833. Scribe Documentation Reviewed: Yes Provider Attestation: The documentation as recorded by the Orville han accurately reflects the service I personally performed and the decisions made by Morris daley M.D.
[2018-05-17] MEDS ORDERED: Mouth Piece, Nicotine* 1 EACH CARTRIDGE INH ONE (11:00)
[2018-05-17] MEDS: Al Hydrox/Mg Hydrox/Simet LIQ* 30 ML UDC PO PRN ×2 (11:09→17:24)
[2018-05-17] MEDS: Nicotine Patch Removal NOTE FOLLOW UP SCH ×2 (12:39→21:59)
--- NOTE | 2018-05-17 13:10 | PN ---
[facility]: Group Therapy Note - Service Type Service Type: [id number] Group Psychotherapy - Cognitive Behavioral Group Therapy ( CBT):Patient was attentive and participatory in CBT programming this morning, and remained in good behavioral control. Patient expressed positive insights regarding relevant treatment interventions and goals.
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
[2018-05-17] MEDS: hydrOXYzine HCL TAB* 50 MG PO PRN (17:22)
[2018-05-17] MEDS: OLANzapine TAB* 5 MG PO SCH ×2 (17:22→21:16)
[2018-05-17] MEDS ORDERED: OLANzapine TAB* 5 MG PO SCH (21:00)
[2018-05-18] MEDS: Nicotine Patch Removal NOTE PATCH OFF SCH ×2 (05:03→20:54)
[2018-05-18] MEDS: Vitamin THERAPEUTIC TAB PO SCH (08:39)
[2018-05-18] MEDS: OLANzapine TAB* 5 MG PO SCH ×2 (08:40→20:53)
[2018-05-18] MEDS: Nicotine Inhaler* 10 MG AMP INH PRN ×5 (08:42→20:56)
[2018-05-18] MEDS: Nicotine PATCH 21 MG/24 HR* PATCH TRANSDERM SCH (10:23)
[2018-05-18] MEDS: Acetaminophen TAB* 325 MG PO PRN ×2 (11:13→16:44)
[2018-05-18] MEDS: Al Hydrox/Mg Hydrox/Simet LIQ* 30 ML UDC PO PRN ×2 (12:45→16:44)
[2018-05-18] MEDS: Nicotine GUM* 2 MG PO PRN ×3 (12:45→20:56)
[2018-05-18] MEDS: hydrOXYzine HCL TAB* 50 MG PO PRN ×2 (12:45→20:56)
--- NOTE | 2018-05-18 15:10 | PN ---
Subjective - Subjective Date of Service: 05/18/18 Service Type: [id number] Hosp care 15 min low complexity Subjective: Ranjit is seen in weekend coverage for Dr. Llanes. He remains med-seeking and manipulative, attempting to talk me into resuming clonazepam. He is also requesting gabapentin 600mg PO TID for treatment of his anxiety and chronic pain issues. He denies SI but says he would likely resume self-harm in the event that we discharged him without inpatient substance abuse or housing services in place. Staff report that he is superficially engaged in milieu activities and is often observed smiling and laughing with peers. Objective - Appearance Appearance: Well Developed/Nourished Dysmorphic Features: No Hygiene: Normal Grooming: Fairly Well Kept - Behavior Psychomotor Activities: Normal Exhibits Abnormal Movement: No - Attitude and Relatedness Attitude and Relatedness: Superficially Cooperative Eye Contact: Fair - Speech Quality: Unpressured Latencies: Normal Quantity: Appropriate - Mood Patient's Decription of Mood: "Anxious" - Affect Observed Affect: Good Affect Consistent with: Euthymia - Thought Process Patient's Thought Process: Goal Directed Thought Content: No Passive Wish, No Suicidal Planning, No Homicidal Ideation, No Paranoid Ideation - Sensorium Experiencing Hallucinations: No, Sensorium is Clear Type of Hallucinations: Visual: No, Auditory: No, Command: No - Impulse Control Impulse Control: Tenuous - Insight and Judgement Insight and Judgement: Impaired - Group Participation Particating in Group Activities: Yes - Medication Management Medication Management Adherence: Yes Assessment - Assessment Merits Inpatient Hospitalization: Pending Safe DC Plan Inpatient DSM-V Dx: F10.24 Clinical Impression: 37 y.o. single, white male, homeless, [place] with a history of polysubstance misuse and antisocial personality traits who returns to the hospital less than 48 hours after his most recent [facility] discharge due to complaints of depressed mood and threats to self-harm. Plan - Plan Treatment Plan: Name: RANJIT SHELTON Birthdate: 1980 [id number] The patient is on a combination of olanzapine, mirtazapine and prn hydroxyzine. Will resume low dose gabapentin 300mg PO TID until Dr. Llanes can reevaluate the need for higher doses of this medication. Patient pending referral to inpatient substance recovery program. Continued Medication Management: Start Medication Medications: Current Medications Acetaminophen (Tylenol Tab*) 650 mg PO Q4H PRN PRN Reason: PAIN or TEMP > 101 F Last Admin: 05/18/18 11:13 Dose: 650 mg Al Hydrox/Mg Hydrox/Simethicone (Maalox Plus*) 30 ml PO Q4H PRN PRN Reason: INDIGESTION Last Admin: 05/18/18 12:45 Dose: 30 ml Device (Nicotine Mouth Piece*) 1 each INH .USE WITH NICOTROL PRN PRN Reason: CRAVING Last Admin: 05/17/18 01:15 Dose: 1 each Hydroxyzine HCl (Atarax Tab*) 50 mg PO Q6H PRN PRN Reason: ANXIETY Last Admin: 05/18/18 12:45 Dose: 50 mg Mirtazapine (Remeron Tab*) 15 mg PO BEDTIME PRN PRN Reason: SLEEP Multivitamins (Theragran Tab*) 1 tab PO DAILY [facility] Last Admin: 05/18/18 08:39 Dose: 1 tab Nicotine (Nicotine Inhaler*) 10 mg INH Q2H PRN PRN Reason: CRAVING Last Admin: 05/18/18 14:42 Dose: 10 mg Nicotine (Nicotine Inhaler*) 10 mg INH Q2H PRN PRN Reason: CRAVING Nicotine (Nicotine Patch 21 Mg/24 Hr*) 1 patch TRANSDERM DAILY [facility] Last Admin: 05/18/18 10:23 Dose: 1 patch Nicotine Polacrilex (Nicotine Gum*) 2 mg PO Q2H PRN PRN Reason: CRAVING Last Admin: 05/18/18 12:45 Dose: 2 mg Olanzapine (Zyprexa Tab*) 10 mg PO BEDTIME [facility] Last Admin: 05/17/18 21:16 Dose: 10 mg Olanzapine (Zyprexa Tab*) 5 mg PO QAM [facility] Last Admin: 05/18/18 08:40 Dose: 5 mg Pharmacy Profile Note (Nicotine Patch Removal Note*) 1 note FOLLOW UP 2099 [facility] Last Admin: 05/17/18 21:59 Dose: Not Given Pharmacy Profile Note (Nicotine Patch Removal Note*) 1 note PATCH OFF 2099 [facility] Last Admin: 05/18/18 05:03 Dose: Not Given - Discharge Plan Discharge Plan: Drug/Alcohol Rehab Lab Results - Lab Results Lab Results: 08/23/18 08/23/18 08/23/18 02:32 02:32 02:32 WBC 10.1 RBC 4.81 Hgb 15.3 Hct 43 MCV 90 MCH 32 H MCHC 35 RDW 12 Plt Count 223 MPV 8.2 Neut % (Auto) 73.9 Lymph % (Auto) 19.1 L [place] % (Auto) 5.8 Eos % (Auto) 0.5 Baso % (Auto) 0.7 Absolute Neuts (auto) 7.5 Absolute Lymphs (auto) 1.9 Absolute Monos (auto) 0.6 Absolute Eos (auto) 0 Absolute Basos (auto) 0.1 Absolute Nucleated RBC 0 Nucleated RBC % 0.1 Sodium 141 Potassium 3.5 Chloride 107 Carbon Dioxide 26 Anion Gap 8 BUN 11 Creatinine 1.15 Est GFR ( Amer) 86.1 Est GFR (Non-Af Amer) 71.2 BUN/Creatinine Ratio 9.6 Glucose 119 H Calcium 9.1 Total Bilirubin 0.30 AST 26 ALT 34 Alkaline Phosphatase 88 Total Protein 6.7 Albumin 4.4 Globulin 2.3 Albumin/Globulin Ratio 1.9 Urine Color Yellow Urine Appearance Cloudy Urine pH 7 Ur Specific [place] 1.015 Urine Protein Negative Urine Ketones Negative Urine Blood Negative Urine Nitrate Negative Urine Bilirubin Negative Urine Urobilinogen Negative Ur Leukocyte Esterase Negative Urine Glucose Negative Urine Opiates Screen Ur Barbiturates Screen Ur Phencyclidine Scrn Ur Amphetamines Screen U Benzodiazepines Scrn Urine Cocaine Screen U Cannabinoids Screen Serum Alcohol < 10 Lyme Disease Serology 05/16/18 05/16/18 02:32 02:32 WBC RBC Hgb Hct MCV MCH MCHC RDW Plt Count MPV Neut % (Auto) Lymph % (Auto) P[place] % (Auto) Eos % (Auto) Baso % (Auto) Absolute Neuts (auto) Absolute Lymphs (auto) Absolute Monos (auto) Absolute Eos (auto) Absolute Basos (auto) Absolute Nucleated RBC Nucleated RBC % Sodium Potassium Chloride Carbon Dioxide Anion Gap BUN Creatinine Est GFR ( Amer) Est GFR (Non-Af Amer) BUN/Creatinine Ratio Glucose Calcium Total Bilirubin AST ALT Alkaline Phosphatase Total Protein Albumin Globulin Albumin/Globulin Ratio Urine Color Urine Appearance Urine pH Ur Specific [place] Urine Protein Urine Ketones Urine Blood Urine Nitrate Urine Bilirubin Urine Urobilinogen Ur Leukocyte Esterase Urine Glucose Urine Opiates Screen None detected Ur Barbiturates Screen None detected Ur Phencyclidine Scrn None detected Ur Amphetamines Screen None detected U Benzodiazepines Scrn None detected Urine Cocaine Screen None detected U Cannabinoids Screen None detected Serum Alcohol Lyme Disease Serology Negative
[2018-05-18] MEDS: Gabapentin CAP(*) 300 MG PO SCH (20:56)
[2018-05-18] MEDS: Mirtazapine TAB* 15 MG PO PRN (22:21)
[2018-05-19] MEDS: Nicotine Inhaler* 10 MG AMP INH PRN ×4 (05:07→17:28)
[2018-05-19] MEDS: hydrOXYzine HCL TAB* 50 MG PO PRN ×3 (05:07→17:28)
[2018-05-19] MEDS: Nicotine GUM* 2 MG PO PRN ×4 (05:07→17:28)
[2018-05-19] MEDS: Nicotine PATCH 21 MG/24 HR* PATCH TRANSDERM SCH (07:35)
[2018-05-19] MEDS: Vitamin THERAPEUTIC TAB PO SCH (07:36)
[2018-05-19] MEDS: Gabapentin CAP(*) 300 MG PO SCH ×3 (07:36→19:41)
[2018-05-19] MEDS: OLANzapine TAB* 5 MG PO SCH ×2 (07:36→19:41)
[2018-05-19] MEDS: Acetaminophen TAB* 325 MG PO PRN ×3 (10:07→19:13)
[2018-05-19] MEDS: Mirtazapine TAB* 15 MG PO PRN (20:20)
[2018-05-19] MEDS: Nicotine Patch Removal NOTE PATCH OFF SCH (20:53)
[2018-05-20] MEDS: Nicotine Inhaler* 10 MG AMP INH PRN ×3 (06:36→12:50)
[2018-05-20] MEDS: Nicotine GUM* 2 MG PO PRN ×3 (06:37→12:50)
[2018-05-20] MEDS: Nicotine PATCH 21 MG/24 HR* PATCH TRANSDERM SCH (08:49)
[2018-05-20] MEDS: Gabapentin CAP(*) 300 MG PO SCH (08:50)
[2018-05-20] MEDS: hydrOXYzine HCL TAB* 50 MG PO PRN ×2 (08:51→16:03)
[2018-05-20] MEDS: OLANzapine TAB* 5 MG PO SCH ×2 (08:51→21:47)
[2018-05-20] MEDS: Vitamin THERAPEUTIC TAB PO SCH (08:51)
--- NOTE | 2018-05-20 11:37 | PN ---
MHU: Group Therapy Note - Service Type Service Type: [id number] Group Psychotherapy - Cognitive Behavioral Group Therapy ( CBT):Patient was attentive and participatory in CBT programming this morning, and remained in good behavioral control. Patient expressed positive insights regarding relevant treatment interventions and goals.
--- NOTE | 2018-05-20 11:38 | PN ---
MHU: Group Therapy Note - Service Type Service Type: [id number] Group Psychotherapy - Cognitive Behavioral Group Therapy ( CBT):Patient was attentive and participatory in CBT programming this morning, and remained in good behavioral control. Patient expressed positive insights regarding relevant treatment interventions and goals.
[2018-05-20] MEDS: Acetaminophen TAB* 325 MG PO PRN (12:48)
--- NOTE | 2018-05-20 13:11 | PN ---
Subjective - Subjective Date of Service: 05/20/18 Service Type: 54498 Hosp care 15 min low complexity Subjective: Patient was seen by self, discussed with treatment team, chart was reviewed. Patient has been compliant with his medications but manipulative about his medications and over the weekend was requesting for Klonopin. Patient asking for increase in Gabapentin that he needs for anxiety and chronic unspecified pain. Patient reported no side effects. Patient has been euthymic on the unit and appeared in no distress. patient if focused on his housing at [employer] or rehab and believes that will help him stay away from substance/alcohol abuse. Patient reports that he is at high risk for relapse if he gets discharged. Patient reportedly showed limited interest in groups as per staff but patient reports that he needs to work on that and is going to attend most of the groups.Patient sleeping has been fine, mood has been stable. Patient eating has been fair. Patient has been cooperative with staff. Patient behavior has been in control. Patient has been reporting no suicidal or homicidal ideation. No psychotic symptoms of delusions or hallucinations. Objective - Appearance Appearance: Healthy Appearing Dysmorphic Features: No Hygiene: Normal Grooming: Fairly Well Kept - Behavior Psychomotor Activities: Normal Exhibits Abnormal Movement: No - Attitude and Relatedness Attitude and Relatedness: Cooperative Eye Contact: Fair - Speech Quality: Unpressured Latencies: Normal Quantity: Appropriate - Mood Patient's Decription of Mood: "Anxious" - Affect Observed Affect: Fair Affect Consistent with: Euthymia - Thought Process Patient's Thought Process: Goal Directed Thought Content: No Passive Wish, No Suicidal Planning, No Homicidal Ideation, No Paranoid Ideation - Sensorium Experiencing Hallucinations: No, Sensorium is Clear Type of Hallucinations: Visual: No, Auditory: No, Command: No - Level of Consciousness Level of Consciousness: Alert Orientation: Yes Intact, Yes Orientated to Time, Yes Orientated to Place, Yes Orientated to Person - Impulse Control Impulse Control: Intact - Insight and Judgement Insight and Judgement: Fair - Group Participation Particating in Group Activities: Yes - Medication Management Medication Management Adherence: Yes - fairly Assessment - Assessment Merits Inpatient Hospitalization: For Immediate Safety, For Stabilization, For Discharge Planning Inpatient DSM-V Dx: F10.24 Clinical Impression: Patient with history of Mood Disorder with heavy substance abuse and alcohol abuse. Patient currently admitted due to worsening of suicidal ideation and attempts in E.D. Patient wants to recover and get help with his life struggles Patient reports that has also struggled with his housing situation but currently is focused on getting better and then enter a rehab. Patient is a danger to self and others if discharged hence will be stabilized on inpatient unit with medication adjustments and therapy. Plan - Plan Treatment Plan: Name: YOVANA SHELTON Birthdate: 1980 [id number] - Patient continues to be hospitalized due to recent suicidal attempt, anxiety and impulsivity. - Patient's medications were adjusted after informed consent with increment in Gabapentin to 400mg TID and continue with other medications. - Patient will be monitored for improvement and side effects. Risk and benefits were discussed. - Patient was encouraged to continue his participation in the milieu, group and individual therapy. Medications: Current Medications Acetaminophen (Tylenol Tab*) 650 mg PO Q4H PRN PRN Reason: PAIN or TEMP > 101 F Last Admin: 05/20/18 12:48 Dose: 650 mg Al Hydrox/Mg Hydrox/Simethicone (Maalox Plus*) 30 ml PO Q4H PRN PRN Reason: INDIGESTION Last Admin: 05/18/18 16:44 Dose: 30 ml Device (Nicotine Mouth Piece*) 1 each INH .USE WITH NICOTROL PRN PRN Reason: CRAVING Last Admin: 05/17/18 01:15 Dose: 1 each Gabapentin (Neurontin Cap(*)) 400 mg PO TID [facility] Hydroxyzine HCl (Atarax Tab*) 50 mg PO Q6H PRN PRN Reason: ANXIETY Last Admin: 05/20/18 08:51 Dose: 50 mg Mirtazapine (Remeron Tab*) 15 mg PO BEDTIME PRN PRN Reason: SLEEP Last Admin: 05/19/18 20:20 Dose: 15 mg Multivitamins (Theragran Tab*) 1 tab PO DAILY [facility] Last Admin: 05/20/18 08:51 Dose: 1 tab Nicotine (Nicotine Inhaler*) 10 mg INH Q2H PRN PRN Reason: CRAVING Last Admin: 05/20/18 12:50 Dose: 10 mg Nicotine (Nicotine Inhaler*) 10 mg INH Q2H PRN PRN Reason: CRAVING Nicotine (Nicotine Patch 21 Mg/24 Hr*) 1 patch TRANSDERM DAILY [facility] Last Admin: 05/20/18 08:49 Dose: 1 patch Nicotine Polacrilex (Nicotine Gum*) 2 mg PO Q2H PRN PRN Reason: CRAVING Last Admin: 05/20/18 12:50 Dose: 2 mg Olanzapine (Zyprexa Tab*) 10 mg PO BEDTIME [facility] Last Admin: 05/19/18 19:41 Dose: 10 mg Olanzapine (Zyprexa Tab*) 5 mg PO QAM [facility] Last Admin: 05/20/18 08:51 Dose: 5 mg Pharmacy Profile Note (Nicotine Patch Removal Note*) 1 note PATCH OFF 2100 [facility] Last Admin: 05/19/18 20:53 Dose: 1 note
[2018-05-20] MEDS: Gabapentin CAP(*) 400 MG PO SCH ×2 (13:46→21:47)
[2018-05-20] MEDS: Nicotine Patch Removal NOTE PATCH OFF SCH (21:52)
[2018-05-21] MEDS: Nicotine Inhaler* 10 MG AMP INH PRN ×4 (07:36→16:02)
[2018-05-21] MEDS: Nicotine GUM* 2 MG PO PRN ×4 (07:37→16:00)
[2018-05-21] MEDS: Nicotine PATCH 21 MG/24 HR* PATCH TRANSDERM SCH (08:26)
[2018-05-21] MEDS: OLANzapine TAB* 5 MG PO SCH ×2 (08:28→20:52)
[2018-05-21] MEDS: Vitamin THERAPEUTIC TAB PO SCH (08:29)
[2018-05-21] MEDS: Gabapentin CAP(*) 400 MG PO SCH (08:29)
[2018-05-21] MEDS: hydrOXYzine HCL TAB* 50 MG PO PRN ×2 (08:31→16:00)
--- NOTE | 2018-05-21 12:02 | PN ---
Subjective - Subjective Date of Service: 05/21/18 Service Type: [id number] Hosp care 15 min low complexity Subjective: Patient was seen by self, discussed with treatment team, chart was reviewed. Patient has been compliant with his medications but continues to be manipulative about his medications. Patient later in the day was insisting upon having Percocet for pain despite of education about controlled substance and his struggle with substance use and efforts has been putting to get to inpatient rehab. Patient was able comprehend with multiple redirections. Patient has been euthymic on the unit, socializing well with others. Patient has been attending groups and was hoping to get into housing at [place] but reportedly has not been on their list. Patient showing some eagerness to go into inpatient rehab and work on his substance/alcohol addiction. Patient reports still having anxiety and vague generalized malaise, asking for increase in Gabapentin. Patient reported no side effects. Patient has been euthymic on the unit and appears in no distress. Patient reports that he is at high risk for relapse if he gets discharged. Patient reportedly attending groups as per staff and is going to attend most of the groups.Patient sleeping has been fine, mood has been stable. Patient eating has been fair. Patient has been cooperative with staff. Patient behavior has been in control. Patient has been reporting no suicidal or homicidal ideation. No psychotic symptoms of delusions or hallucinations. Objective - Appearance Appearance: Healthy Appearing Dysmorphic Features: No Hygiene: Normal Grooming: Well Kept - Behavior Psychomotor Activities: Normal Exhibits Abnormal Movement: No - Attitude and Relatedness Attitude and Relatedness: Cooperative Eye Contact: Fair - Speech Quality: Unpressured Latencies: Normal Quantity: Appropriate - Mood Patient's Decription of Mood: "Anxious" - Affect Observed Affect: Tense - mildly Affect Consistent with: Euthymia - Thought Process Patient's Thought Process: Coherent Thought Content: No Passive Wish, No Suicidal Planning, No Homicidal Ideation, No Paranoid Ideation - Sensorium Experiencing Hallucinations: No, Sensorium is Clear Type of Hallucinations: Visual: No, Auditory: No, Command: No - Level of Consciousness Level of Consciousness: Alert Orientation: Yes Intact, Yes Orientated to Time, Yes Orientated to Place, Yes Orientated to Person - Impulse Control Impulse Control: Intact - Insight and Judgement Insight and Judgement: Fair - Group Participation Particating in Group Activities: Yes - Medication Management Medication Management Adherence: Yes Assessment - Assessment Merits Inpatient Hospitalization: For Immediate Safety, For Stabilization, For Discharge Planning Inpatient DSM-V Dx: F10.24 Clinical Impression: Patient with history of Mood Disorder with heavy substance abuse and alcohol abuse. Patient currently admitted due to worsening of suicidal ideation and attempts in E.D. Patient wants to recover and get help with his life struggles Patient reports that has also struggled with his housing situation but currently is focused on getting better and then enter a rehab. Patient is a danger to self and others if discharged hence will be stabilized on inpatient unit with medication adjustments and therapy. Plan - Plan Treatment Plan: Name: YOVANA SHELTON Birthdate: 1980 [id number] - Patient continues to be hospitalized due to recent suicidal attempt, anxiety and impulsivity. - Patient's medications were adjusted after informed consent with increment in Gabapentin to 600mg TID and continue with other medications. - Patient will be monitored for improvement and side effects. Risk and benefits were discussed. - Patient was encouraged to continue his participation in the milieu, group and individual therapy. Medications: Current Medications Acetaminophen (Tylenol Tab*) 650 mg PO Q4H PRN PRN Reason: PAIN or TEMP > 101 F Last Admin: 05/20/18 12:48 Dose: 650 mg Al Hydrox/Mg Hydrox/Simethicone (Maalox Plus*) 30 ml PO Q4H PRN PRN Reason: INDIGESTION Last Admin: 05/18/18 16:44 Dose: 30 ml Device (Nicotine Mouth Piece*) 1 each INH .USE WITH NICOTROL PRN PRN Reason: CRAVING Last Admin: 05/17/18 01:15 Dose: 1 each Gabapentin (Neurontin Cap(*)) 600 mg PO TID [facility] Hydroxyzine HCl (Atarax Tab*) 50 mg PO Q6H PRN PRN Reason: ANXIETY Last Admin: 05/21/18 08:31 Dose: 50 mg Mirtazapine (Remeron Tab*) 15 mg PO BEDTIME PRN PRN Reason: SLEEP Last Admin: 05/19/18 20:20 Dose: 15 mg Multivitamins (Theragran Tab*) 1 tab PO DAILY [facility] Last Admin: 05/21/18 08:29 Dose: 1 tab Nicotine (Nicotine Inhaler*) 10 mg INH Q2H PRN PRN Reason: CRAVING Last Admin: 05/21/18 10:19 Dose: 10 mg Nicotine (Nicotine Inhaler*) 10 mg INH Q2H PRN PRN Reason: CRAVING Nicotine (Nicotine Patch 21 Mg/24 Hr*) 1 patch TRANSDERM DAILY [facility] Last Admin: 05/21/18 08:26 Dose: 1 patch Nicotine Polacrilex (Nicotine Gum*) 2 mg PO Q2H PRN PRN Reason: CRAVING Last Admin: 05/21/18 10:19 Dose: 2 mg Olanzapine (Zyprexa Tab*) 10 mg PO BEDTIME [facility] Last Admin: 05/20/18 21:47 Dose: 10 mg Olanzapine (Zyprexa Tab*) 5 mg PO QAM [facility] Last Admin: 05/21/18 08:28 Dose: 5 mg Pharmacy Profile Note (Nicotine Patch Removal Note*) 1 note PATCH OFF 2100 [facility] Last Admin: 05/20/18 21:52 Dose: 1 note - Discharge Plan Discharge Plan: Drug/Alcohol Rehab - patietn completed CATHIE packet
[2018-05-21] MEDS: Gabapentin CAP(*) 300 MG PO SCH ×2 (13:39→20:52)
[2018-05-21] MEDS: Acetaminophen TAB* 325 MG PO PRN (17:20)
[2018-05-21] MEDS: Nicotine Patch Removal NOTE PATCH OFF SCH (20:57)
[2018-05-22] MEDS: Gabapentin CAP(*) 300 MG PO SCH ×3 (07:56→20:19)
[2018-05-22] MEDS: Nicotine GUM* 2 MG PO PRN ×6 (07:57→20:21)
[2018-05-22] MEDS: OLANzapine TAB* 5 MG PO SCH ×2 (07:57→20:20)
[2018-05-22] MEDS: Nicotine Inhaler* 10 MG AMP INH PRN ×6 (07:57→20:22)
[2018-05-22] MEDS: Vitamin THERAPEUTIC TAB PO SCH (07:57)
[2018-05-22] MEDS: hydrOXYzine HCL TAB* 50 MG PO PRN ×2 (07:58→14:27)
[2018-05-22] MEDS: Nicotine PATCH 21 MG/24 HR* PATCH TRANSDERM SCH (07:59)
--- NOTE | 2018-05-22 11:33 | PN ---
Subjective - Subjective Date of Service: 05/22/18 Service Type: 72565 Hosp care 15 min low complexity Subjective: Patient was seen by self, discussed with treatment team, chart was reviewed. Patient has been compliant with his medications and more cooperative with treatment. Patient reports that yesterday he attended more of the groups during the day but went to sleep early hence might have missed evening groups. Patient wanted to explore his options of inpatient rehab with social welfare administrator. Patient has been anxious about his discharge planning but socializing well with others. Patient has been attending groups and working on coping skills to manage anxiety and substance/alcohol addiction. Patient reports improvement in anxiety and vague generalized malaise, after increase in Gabapentin. Patient reported no side effects. Patient reports that he is at high risk for relapse if he gets discharged. Patient sleeping early yesterday but will try to work on his sleep schedule for later time today. Patient mood has been stable. Patient eating has been fair. Patient has been cooperative with staff. Patient behavior has been in control. Patient has been reporting no suicidal or homicidal ideation. No psychotic symptoms of delusions or hallucinations. Objective - Appearance Appearance: Healthy Appearing Dysmorphic Features: No Hygiene: Normal Grooming: Fairly Well Kept - Behavior Psychomotor Activities: Normal Exhibits Abnormal Movement: No - Attitude and Relatedness Attitude and Relatedness: Cooperative - more Eye Contact: Fair - Speech Quality: Unpressured Latencies: Normal Quantity: Appropriate - Mood Patient's Decription of Mood: "bettter" - Affect Observed Affect: Tense - less Affect Consistent with: Euthymia - Thought Process Patient's Thought Process: Coherent, Goal Directed Thought Content: No Passive Wish, No Suicidal Planning, No Homicidal Ideation, No Paranoid Ideation - Sensorium Experiencing Hallucinations: No, Sensorium is Clear Type of Hallucinations: Visual: No, Auditory: No, Command: No - Level of Consciousness Level of Consciousness: Alert Orientation: Yes Intact, Yes Orientated to Time, Yes Orientated to Place, Yes Orientated to Person - Impulse Control Impulse Control: Intact - Insight and Judgement Insight and Judgement: Fair - Group Participation Particating in Group Activities: Yes - Medication Management Medication Management Adherence: Yes Assessment - Assessment Merits Inpatient Hospitalization: For Immediate Safety, For Stabilization, For Discharge Planning Inpatient DSM-V Dx: F10.24 Clinical Impression: Patient with history of Mood Disorder with heavy substance abuse and alcohol abuse. Patient currently admitted due to worsening of suicidal ideation and attempts in E.D. Patient wants to recover and get help with his life struggles Patient reports that has also struggled with his housing situation but currently is focused on getting better and then enter a rehab. Patient is a danger to self and others if discharged hence will be stabilized on inpatient unit with medication adjustments and therapy. Plan - Plan Treatment Plan: Name: YOVANA SHELTON Birthdate: 1980 [id number] - Patient continues to be hospitalized due to recent suicidal attempt, anxiety and impulsivity. - Patient's medications were adjusted after informed consent with increment in Remeron to 30 mg at Bedtime and continue with other medications. - Patient will be monitored for improvement and side effects. Risk and benefits were discussed. - Patient was encouraged to continue his participation in the milieu, group and individual therapy. Medications: Current Medications Acetaminophen (Tylenol Tab*) 650 mg PO Q4H PRN PRN Reason: PAIN or TEMP > 101 F Last Admin: 05/21/18 17:20 Dose: 650 mg Al Hydrox/Mg Hydrox/Simethicone (Maalox Plus*) 30 ml PO Q4H PRN PRN Reason: INDIGESTION Last Admin: 05/18/18 16:44 Dose: 30 ml Device (Nicotine Mouth Piece*) 1 each INH .USE WITH NICOTROL PRN PRN Reason: CRAVING Last Admin: 05/17/18 01:15 Dose: 1 each Gabapentin (Neurontin Cap(*)) 600 mg PO TID [facility] Last Admin: 05/22/18 07:56 Dose: 600 mg Hydroxyzine HCl (Atarax Tab*) 50 mg PO Q6H PRN PRN Reason: ANXIETY Last Admin: 05/22/18 07:58 Dose: 50 mg Mirtazapine (Remeron Tab*) 15 mg PO BEDTIME PRN PRN Reason: SLEEP Last Admin: 05/19/18 20:20 Dose: 15 mg Multivitamins (Theragran Tab*) 1 tab PO DAILY [facility] Last Admin: 05/22/18 07:57 Dose: 1 tab Nicotine (Nicotine Inhaler*) 10 mg INH Q2H PRN PRN Reason: CRAVING Last Admin: 05/22/18 10:06 Dose: 10 mg Nicotine (Nicotine Inhaler*) 10 mg INH Q2H PRN PRN Reason: CRAVING Last Admin: 05/21/18 16:02 Dose: 10 mg Nicotine (Nicotine Patch 21 Mg/24 Hr*) 1 patch TRANSDERM DAILY [facility] Last Admin: 05/22/18 07:59 Dose: 1 patch Nicotine Polacrilex (Nicotine Gum*) 2 mg PO Q2H PRN PRN Reason: CRAVING Last Admin: 05/22/18 10:06 Dose: 2 mg Olanzapine (Zyprexa Tab*) 10 mg PO BEDTIME [facility] Last Admin: 05/21/18 20:52 Dose: 10 mg Olanzapine (Zyprexa Tab*) 5 mg PO QAM [facility] Last Admin: 05/22/18 07:57 Dose: 5 mg Pharmacy Profile Note (Nicotine Patch Removal Note*) 1 note PATCH OFF 2100 [facility] Last Admin: 05/21/18 20:57 Dose: 1 note
--- NOTE | 2018-05-22 16:05 | PN ---
MHU: Group Therapy Note - Service Type Service Type: [id number] Group Psychotherapy - Medication Education Group: Patient was attentive and participatory in group, and remained in good behavioral control. Patient expressed positive insights regarding relevant treatment interventions. Patient stated understanding of material discussed and had appropriate questions.
[2018-05-22] MEDS: Al Hydrox/Mg Hydrox/Simet LIQ* 30 ML UDC PO PRN (17:46)
[2018-05-22] MEDS: Mirtazapine TAB* 15 MG PO PRN (21:17)
[2018-05-22] MEDS: Nicotine Patch Removal NOTE PATCH OFF SCH (22:07)
[2018-05-23] MEDS: Nicotine Inhaler* 10 MG AMP INH PRN ×6 (08:39→19:52)
[2018-05-23] MEDS: Mouth Piece, Nicotine* 1 EACH CARTRIDGE INH PRN ×2 (08:39→12:49)
[2018-05-23] MEDS: Nicotine PATCH 21 MG/24 HR* PATCH TRANSDERM SCH (08:40)
[2018-05-23] MEDS: Gabapentin CAP(*) 300 MG PO SCH ×3 (08:41→20:03)
[2018-05-23] MEDS: Vitamin THERAPEUTIC TAB PO SCH (08:42)
[2018-05-23] MEDS: OLANzapine TAB* 5 MG PO SCH ×2 (08:42→20:04)
[2018-05-23] MEDS: Nicotine GUM* 2 MG PO PRN ×3 (10:56→19:52)
--- NOTE | 2018-05-23 11:55 | PN ---
Subjective - Subjective Date of Service: 05/23/18 Service Type: 34324 Hosp care 15 min low complexity Subjective: Patient was seen by self, discussed with treatment team, chart was reviewed. Patient has been compliant with his medications and more cooperative with treatment. Patient attended most of the groups, participating in therapy and meetings. Patient is working with social services assistant for inpatient rehab referrals. Patient mood was better today, slept better last night and socializing well with others. Patient reports having a back up plan of moving to [place] as he will be getting his check from social sciences lecturer soon. Patient has been attending groups and working on coping skills to manage anxiety and substance/alcohol addiction. Patient reported no side effects. Patient reports that he is at high risk for relapse if he gets discharged. Patient eating has been fair. Patient has been cooperative with staff. Patient behavior has been in control with no unpredictability. Patient has been reporting no suicidal or homicidal ideation. No psychotic symptoms of delusions or hallucinations. Patient's Lyme serology was negative Objective - Appearance Appearance: Healthy Appearing Dysmorphic Features: No Hygiene: Normal Grooming: Fairly Well Kept - Behavior Psychomotor Activities: Normal Exhibits Abnormal Movement: No - Attitude and Relatedness Attitude and Relatedness: Cooperative Eye Contact: Fair - Speech Quality: Unpressured Latencies: Normal Quantity: Appropriate - Mood Patient's Decription of Mood: "better" - Affect Observed Affect: Fair Affect Consistent with: Euthymia - Thought Process Patient's Thought Process: Coherent, Goal Directed Thought Content: No Passive Wish, No Suicidal Planning, No Homicidal Ideation, No Paranoid Ideation - Sensorium Experiencing Hallucinations: No, Sensorium is Clear Type of Hallucinations: Visual: No, Auditory: No, Command: No - Level of Consciousness Level of Consciousness: Alert Orientation: Yes Intact, Yes Orientated to Time, Yes Orientated to Place, Yes Orientated to Person - Impulse Control Impulse Control: Intact - Insight and Judgement Insight and Judgement: Fair - Group Participation Particating in Group Activities: Yes - Medication Management Medication Management Adherence: Yes Assessment - Assessment Merits Inpatient Hospitalization: For Immediate Safety, For Stabilization, For Discharge Planning Inpatient DSM-V Dx: F10.24 Clinical Impression: Patient with history of Mood Disorder with heavy substance abuse and alcohol abuse. Patient currently admitted due to worsening of suicidal ideation and attempts in E.D. Patient wants to recover and get help with his life struggles Patient reports that has also struggled with his housing situation but currently is focused on getting better and then enter a rehab. Patient is a danger to self and others if discharged hence will be stabilized on inpatient unit with medication adjustments and therapy. Plan - Plan Treatment Plan: Name: YOVANA SHELTON Birthdate: 1980 [id number] - Patient continues to be hospitalized due to recent suicidal attempt, anxiety and impulsivity. - Patient's medications were adjusted after informed consent with continue of his medications. - Patient will be monitored for improvement and side effects. Risk and benefits were discussed. - Patient was encouraged to continue his participation in the milieu, group and individual therapy. Medications: Current Medications Acetaminophen (Tylenol Tab*) 650 mg PO Q4H PRN PRN Reason: PAIN or TEMP > 101 F Last Admin: 05/21/18 17:20 Dose: 650 mg Al Hydrox/Mg Hydrox/Simethicone (Maalox Plus*) 30 ml PO Q4H PRN PRN Reason: INDIGESTION Last Admin: 05/22/18 17:46 Dose: 30 ml Device (Nicotine Mouth Piece*) 1 each INH .USE WITH NICOTROL PRN PRN Reason: CRAVING Last Admin: 05/23/18 08:39 Dose: 1 each Gabapentin (Neurontin Cap(*)) 600 mg PO TID [facility] Last Admin: 05/23/18 08:41 Dose: 600 mg Hydroxyzine HCl (Atarax Tab*) 50 mg PO Q6H PRN PRN Reason: ANXIETY Last Admin: 05/22/18 14:27 Dose: 50 mg Mirtazapine (Remeron Tab*) 30 mg PO BEDTIME PRN PRN Reason: SLEEP Last Admin: 05/22/18 21:17 Dose: 30 mg Multivitamins (Theragran Tab*) 1 tab PO DAILY [facility] Last Admin: 05/23/18 08:42 Dose: 1 tab Nicotine (Nicotine Inhaler*) 10 mg INH Q2H PRN PRN Reason: CRAVING Last Admin: 05/23/18 10:55 Dose: 10 mg Nicotine (Nicotine Inhaler*) 10 mg INH Q2H PRN PRN Reason: CRAVING Last Admin: 05/21/18 16:02 Dose: 10 mg Nicotine (Nicotine Patch 21 Mg/24 Hr*) 1 patch TRANSDERM DAILY [facility] Last Admin: 05/23/18 08:40 Dose: 1 patch Nicotine Polacrilex (Nicotine Gum*) 2 mg PO Q2H PRN PRN Reason: CRAVING Last Admin: 05/23/18 10:56 Dose: 2 mg Olanzapine (Zyprexa Tab*) 10 mg PO BEDTIME [facility] Last Admin: 05/22/18 20:20 Dose: 10 mg Olanzapine (Zyprexa Tab*) 5 mg PO QAM [facility] Last Admin: 05/23/18 08:42 Dose: 5 mg Pharmacy Profile Note (Nicotine Patch Removal Note*) 1 note PATCH OFF 2100 [facility] Last Admin: 05/22/18 22:07 Dose: 1 note
[2018-05-23] MEDS: hydrOXYzine HCL TAB* 50 MG PO PRN (14:24)
[2018-05-23] MEDS: Acetaminophen TAB* 325 MG PO PRN (20:06)
[2018-05-23] MEDS: Mirtazapine TAB* 15 MG PO PRN (20:07)
[2018-05-23] MEDS: Nicotine Patch Removal NOTE PATCH OFF SCH (21:28)
[2018-05-24 08:09] VITALS: BP 124/85
[2018-05-24] MEDS: Vitamin THERAPEUTIC TAB PO SCH (08:19)
[2018-05-24] MEDS: Gabapentin CAP(*) 300 MG PO SCH (08:20)
[2018-05-24] MEDS: OLANzapine TAB* 5 MG PO SCH (08:21)
[2018-05-24] MEDS: Nicotine PATCH 21 MG/24 HR* PATCH TRANSDERM SCH (08:23)
[2018-05-24] MEDS: Nicotine Inhaler* 10 MG AMP INH PRN ×2 (08:23→10:27)
[2018-05-24] MEDS: Nicotine GUM* 2 MG PO PRN (10:26)
--- NOTE | 2018-05-24 11:27 | PN ---
MHU: Group Therapy Note - Service Type Service Type: 48959 Group Psychotherapy - Cognitive Behavioral Group Therapy ( CBT):Patient was attentive and participatory in CBT programming this morning, and remained in good behavioral control. Patient expressed positive insights regarding relevant treatment interventions and goals.
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
[2018-05-24] MEDS ORDERED: OLANzapine TAB* 10 MG PO SCH (21:00)
[2018-05-24] MEDS ORDERED: Gabapentin TAB(NF) 600 MG PO SCH (21:00)
[2018-05-24] MEDS ORDERED: Mirtazapine TAB* 15 MG PO SCH (21:00)
[2018-05-25] MEDS ORDERED: OLANzapine TAB* 5 MG PO SCH (09:00)
== END 2018-05-24 12:54 | disposition home or self-care (01) | DRG 897 ==
LOC: ED 01:05 → BSU 05-17 10:51 → UNDODISIN 05-20 14:26
PROVIDERS: ADMIT Psychiatry & Neurology Psychiatry; ATTEND Psychiatry & Neurology Psychiatry
PROC: GZHZZZZ Group Psychotherapy (ICD-10-PCS; principal; 2018-05-17)
DX: F10.24 Alcohol dependence with alcohol-induced mood disorder (principal); F32.9 Major depressive disorder, single episode, unspecified; G47.00 Insomnia, unspecified; F13.10 Sedative, hypnotic or anxiolytic abuse, uncomplicated; F12.10 Cannabis abuse, uncomplicated; Y90.0 Blood alcohol level of less than 20 mg/100 ml; G89.29 Other chronic pain; S00.83XA Contusion of other part of head, initial encounter; T42.6X2A Poisoning by other antiepileptic and sedative-hypnotic drugs, intentional self-harm, initial encounter; F17.210 Nicotine dependence, cigarettes, uncomplicated; I10 Essential (primary) hypertension; M79.7 Fibromyalgia; M79.2 Neuralgia and neuritis, unspecified; F41.0 Panic disorder [episodic paroxysmal anxiety]; F43.10 Post-traumatic stress disorder, unspecified; F20.9 Schizophrenia, unspecified; Z56.0 Unemployment, unspecified; Z81.8 Family history of other mental and behavioral disorders; Z76.5 Malingerer [conscious simulation]; Z81.1 Family history of alcohol abuse and dependence; X83.8XXA Intentional self-harm by other specified means, initial encounter; Y92.9 Unspecified place or not applicable; Z91.5 Personal history of self-harm; Z82.49 Family history of ischemic heart disease and other diseases of the circulatory system; Z83.3 Family history of diabetes mellitus; Z80.9 Family history of malignant neoplasm, unspecified; Z88.8 Allergy status to other drugs, medicaments and biological substances
CPT/HCPCS: 36415; 70450; 80053; 80061; 80307; 80320; 81003; 83036; 85025; 86618; 90853; 99222; 99231; 99238; 99284; A9270-GY; G0480; J2060

== ENCOUNTER 2018-05-26 18:01 | Inpatient (IN) | payer MEDICARE, MEDICAID ==
[~2018-05-26 18:01] MED LIST: Haloperidol INJ IV/IM* 5 MG/ML AMP ONE; LORazepam INJ* 2 MG/ML 1 ML VIAL ONE; diPHENhydraMINE IV* 50 MG/ML 1 ml VIAL (BENADRYL) ONE
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
[2018-05-26 19:12] LABS: Urine Appearance Clear; Urine Blood Negative (Negative); Urine Color Yellow; Urine Ketones Negative (Negative); Urine Protein Negative (Negative); Urine Specific Gravity 1.008 (1.010-1.030); Urine Urobilinogen Negative (Negative)
[2018-05-26 19:23] LABS: ABS Basophils 0.1 10^3/ul (0-0.2); ABS Eosinophils 0.2 10^3/ul (0-0.6); ABS Lymphocytes 2.5 10^3/ul (1.0-4.8); ABS Monocytes 0.7 10^3/ul (0-0.8); ABS Neutrophils 5.3 10^3/ul (1.5-7.7); ABS Nucleated RBC 0 10^3/ul; Eosinophil % 2.4 % (0-6); Hematocrit 44 % (42-52); Hemoglobin 15.2 g/dl (14.0-18.0); Lymphocyte % 28.6 % (25-47); Mean Corpuscular HGB Conc 35 g/dl (31-36); Mean Corpuscular Hemoglobin 32 pg (27-31); Mean Corpuscular Volume 91 fL (80-94); Mean Platelet Volume 7.9 um3 (7.4-10.4); Nucleated Red Blood Cells % 0.1; Platelet Count 242 10^3/ul (150-450); Red Cell Distribution Width 13 % (10.5-15); White Blood Count 8.9 10^3/ul (3.5-10.8)
[2018-05-26 19:31] LABS: EGFR Non-African American 90.9 (>60)
[2018-05-26] MEDS ORDERED: LORazepam TAB(*) 1 MG PO ONE (19:53)
[2018-05-26] MEDS ORDERED: Acetaminophen TAB* 325 MG PO ONE (19:53)
[2018-05-26] MEDS ORDERED: Mouth Piece, Nicotine* 1 EACH CARTRIDGE INH PRN (19:53)
[2018-05-26] MEDS ORDERED: Nicotine Inhaler* 10 MG AMP INH PRN ×2 (19:53→21:00)
[2018-05-26] MEDS ORDERED: Mouth Piece, Nicotine* 1 EACH CARTRIDGE INH ONE (21:00)
--- NOTE | 2018-05-27 01:43 | PN ---
Progress Note - Progress Note Date of Service: 05/27/18 Note: January Charlton, scribed for Dr. Fatuma Pickering MD on 05/27/18 at 00:55. The documentation as recorded by the scribeJanuary accurately reflects the service I personally performed and the decisions made by la, Dr. Fatuma Pickering MD SIGN-OUT FROM DR. LEXUS MILES MD AT SHIFT CHANGE PENDING MHE. CONSULT AT 0136 THIS DATE: Per special librarian, will transfer pt. EKG AT 02:06: SR at 76 bpm, nml axis, nml interval, no ischemic changes. DX: depression, anxiety. SIGN-OUT TO DR. JULIETH HODGOSN MD AT SHIFT CHANGE PENDING TRANSFER BED AVAILABLE.
--- NOTE | 2018-05-27 07:25 | ED ---
Progress - Progress Note Progress Note: Patient was signed out to Dr. Damián Pickering via Dr. Amos Head, awaiting medical clearance, pending disposition at shift change on 05/27/2018 at 2200. - Consult/PCP Time Called: 23:30 Course/Dx - Course Course Of Treatment: Medications reviewed. Allergies noted. Patient was signed out to Dr. Damián Pickering via Dr. Robert Desai, awaiting MHE, pending medical clearance and disposition at shift change on May 26, 2018 at 2200. Patient was signed out from Dr. Pickering to Dr. Hays upon provider shift change pending transfer. Pt signed out to Dr. Henderson from Dr. Hays upon shift change pending transfer. - Diagnoses Provider Diagnoses: Mental health problem Discharge - Sign-Out/Discharge Documenting (check all that apply): Sign-Out Patient Signing out patient TO: Damián Pickering - Discharge Plan Condition: Stable [place] [place]errals: No Primary Care Phys,NOPCP [Primary Care Provider] - - Attestation Statements Document Initiated by Scribe: Yes Documenting Scribe: Carey Patrick Provider For Whom Scribe is Documenting (Include Credential): Holland Hays MD Scribe Attestation: ICarey, scribed for Holland Hays MD on 05/28/18 at 0552.
[2018-05-27] MEDS ORDERED: LORazepam TAB(*) 1 MG PO ONE (16:11)
[2018-05-28] MEDS ORDERED: LORazepam TAB(*) 1 MG PO ONE ×2 (02:48→10:59)
--- NOTE | 2018-05-28 05:54 | ED ---
Progress - Progress Note Progress Note: Patient was signed out to Dr. Damián Pickering via Dr. Holland Hays, awaiting medical clearance, pending disposition at shift change on 05/27/2018 at 1900. EKG at 0206 revealed NSR 76 BPM, normal axis, normal interval, no ischemic changes. Patient was signed out to Dr. Fatuma Segura via Dr. Damián Pickering, awaiting medical clearance, pending disposition at shift change on 05/28/2018 at 0700. - Consult/PCP Time Called: 23:30 Course/Dx - Course Course Of Treatment: A 37 y/o male presents to ED c/o SI without plan reaching 8 /10 in severity. No laboratory scans were done. Blood work and UA were done. An EKG revealed revealed NSR 76 BPM, normal axis, normal interval, no ischemic changes. In the ED course, the patient received Nicotine and Ativan. Patient was signed out to Dr. Fatuma Segura via Dr. Damián Pickering, awaiting medical clearance, pending disposition at shift change on 05/28/2018 at 0700. Discharge - Sign-Out/Discharge Documenting (check all that apply): Sign-Out Patient Signing out patient TO: Fatuma Segura Receiving patient FROM: Damián Pickering - Discharge Plan Condition: Stable Referrals: No Primary Care Phys,NOPCP [Primary Care Provider] - - Attestation Statements Document Initiated by Scribe: Yes Documenting Scribe: David Goodson Provider For Whom Scribe is Documenting (Include Credential): Damián Pickering Scribe Attestation: David Charlton, scribed for Damián Pickering on 05/28/18 at 0641.
--- NOTE | 2018-05-28 07:50 | ED ---
Progress - Progress Note Progress Note: Patient was signed out to Dr. Fatuma Segura via Dr. Damián Pickering, pending disposition at shift change on 05/28/2018 at 07:00. - Consult/PCP Time Called: 23:30 Re-Evaluation - Re-Evaluation First Eval Re-Evaluation Time: 07:00 Change: Unchanged Comment: He has a sheet over his head at this time. Pt is awake and states he is still suicidal. Pts plan would be to take drugs or alcohol to kill himself. Second Eval Re-Evaluation Time: 10:57 Change: Unchanged Comment: Informed pt of pending transfer. Pt wanted to be discharged. He requests more Lorazapem, stating he feels overwhelmed. Third Eval Re-Evaluation Time: 12:30 Change: Improved Comment: pt asleep after needing medication for attempting to leave the ED. Given haldol 5mg, benadryl 50mg, ativan 2mg IM at 12noon via emergency kit, after having been given ativan 2mg po at 11:15 Fourth Eval Re-Evaluation Time: 14:30 Change: Unchanged Comment: remains asleep with 1:[address], rouses to stimuli. Course/Dx - Course Course Of Treatment: Appearance: Well-appearing, moderate pain distress, well- nourished. Skin: Warm, color reflects adequate perfusion, dry. Head: Normal Head/Face inspection, atraumatic. Eyes: Conjunctiva clear. ENT: Normal inspection. Neck: Supple, no nodes, no JVD. Respiratory: Lungs clear, normal breath sounds, no respiratory distress. Cardio: RRR, No murmur, pulses normal, brisk capillary refill. Abdomen: Soft, nontender. Bowel sounds: Present. Musculoskeletal: Strength Intact/ROM intact, no calf tenderness, no edema. Psychological: Normal. Neuro: Alert, muscle tone normal, no focal deficit. At 11:50 patient walked out of his room in an attempt to leave the ED. Security was called, and the pt was escorted back to his room. Will give another Halodol , Ativan, and Benadryl. - Diagnoses Provider Diagnoses: Substance abuse, Behavioral disorder - Provider Notifications Discussed Care Of Patient With: Tariq Diggs Time Discussed With Above Provider: 16:10 Instructed by Provider To: Other - scrap yard worker is meeting with pt. Will be admitted. Discharge - Sign-Out/Discharge Documenting (check all that apply): Patient Departure - admit - Discharge Plan Condition: Stable Disposition: [place]IATRIC FAC[place] [place] Referrals: [facility] PHYSICIAN REFERRAL [Outside] - Attestation Statements Document Initiated by Scribe: Yes Documenting Scribe: Ivy Morel Provider For Whom Scribe is Documenting (Include Credential): Fatuam Segura MD Scribe Attestation: Ivy Charlton, scribed for Fatuma Segura MD on 05/28/18 at 1653.
[2018-05-28] MEDS: Gabapentin CAP(*) 300 MG PO SCH ×3 (10:12→21:24)
[2018-05-28] MEDS: OLANzapine TAB* 5 MG PO SCH ×2 (10:12→21:24)
--- NOTE | 2018-05-28 11:07 | PN ---
Progress Note - Progress Note Date of Service: 05/28/18 Note: S: This is ED day #3 for this 37 y.o. single, white male with a history of polysubstance dependence, depression and self-harm who arrives seeking hospitalization for self reported depression, inability to stop using drugs and alcohol and suicidal ideation. He continues to report that he will kill himself if discharged. "Look, I just want to get on the unit and then get into rehab." He refuses to contract for safety. O: young white male with reddish thinning hair; superficially cooperative; endorses SI if discharged; complains of depressed mood; mostly observed sleeping A/P: depression: the patient is requesting transfer to an outside facility and has shown willingness to enact suicidal gestures when not granted admission. Continue 1:1. Will reassess tomorrow.
[2018-05-28] MEDS ORDERED: Nicotine PATCH 14 MG/24 HR* PATCH TRANSDERM ONE (12:06)
[2018-05-28] MEDS: Mirtazapine TAB* 15 MG PO SCH (21:24)
[2018-05-28] MEDS ORDERED: Mouth Piece, Nicotine* 1 EACH CARTRIDGE INH SCH (23:22)
[2018-05-28] MEDS ORDERED: Al Hydrox/Mg Hydrox/Simet LIQ* 30 ML UDC PO PRN (23:22)
[2018-05-29] MEDS ORDERED: Nicotine Patch Removal NOTE FOLLOW UP SCH (06:00)
[2018-05-29] MEDS: Nicotine PATCH 14 MG/24 HR* PATCH TRANSDERM SCH (08:42)
[2018-05-29] MEDS: Gabapentin CAP(*) 300 MG PO SCH ×3 (08:43→20:24)
[2018-05-29] MEDS: Vitamin THERAPEUTIC TAB PO SCH (08:44)
[2018-05-29] MEDS: OLANzapine TAB* 5 MG PO SCH ×2 (08:44→20:24)
[2018-05-29] MEDS: Nicotine Inhaler* 10 MG AMP INH PRN ×5 (08:44→20:23)
[2018-05-29] MEDS: Nicotine GUM* 2 MG PO PRN ×4 (08:44→18:28)
--- NOTE | 2018-05-29 12:08 | PN ---
MHU: Group Therapy Note - Service Type Service Type: 20874 Group Psychotherapy - Cognitive Behavioral Group Therapy ( CBT):Patient was attentive and participatory in CBT programming this morning, and remained in good behavioral control. Patient expressed positive insights regarding relevant treatment interventions and goals.
[2018-05-29] MEDS: Mirtazapine TAB* 15 MG PO SCH (20:24)
[2018-05-29] MEDS: Nicotine Patch Removal NOTE PATCH OFF SCH (20:49)
--- NOTE | 2018-05-29 21:11 | HP ---
PSYCHIATRIC HISTORY AND PHYSICAL: DATE OF ADMISSION: 05/28/18 JUSTIFICATION FOR ADMISSION: The patient is in need of 24-hour supervision and treatment secondary to suicidal ideations. CHIEF COMPLAINT: "It just didn't work out there. I really need to go to rehab. " HISTORY OF PRESENT ILLNESS: The patient is a 37-year-old single white male with a history of alcohol and cocaine abuse as well as psychotic and affective problems, who was just discharged from our service on the 05/24/18, who then returns less than 24 hours later having already spent all of his money for the check he received on the of the month on substances of abuse, who now presents with suicidal ideations and request for substance abuse treatment. The patient states that he used hallucinogenic drugs that he purchased from a friend and has no further monetary resources for the month. For further history , please refer to the psychiatric H and P, which was written by Dr. Evy Llanes on 05/17/18. At this time, the patient is willing to go to rehab despite his refusal to do so during his last several admissions and in fact he already signed the CATHIE packet in the emergency room along with consent forms to contact regional substance abuse inpatient rehabs. MENTAL STATUS EXAM: The patient is a young white male with reddish thinning hair. He has a goatee chong. He is wearing street clothing. He is irritable, makes limited eye contact, appears to be withdrawing from drugs. Speech has limited spontaneity and he typically answers with 2 to 3-word answers, which are not fairly descriptive. Thought process is linear and goal directed. Thought content is significant for his willingness to go to rehab. He is currently endorsing suicidal ideations to the effect that if he is discharged without being sent to rehab, he will try to overdose on drugs or hang himself. He is denying auditory or visual hallucinations. Insight and judgment appear to be fair given his willingness to go to rehab. Cognitively, he is awake and alert with what would appear to be an average intellect. DIAGNOSTIC STUDIES/LAB DATA: Routine urine drug screen was completed, which was negative for all substances tested. Notably, our panel does not cover hallucinogenic drugs. DIAGNOSES: Follows: Holcomb I: Alcohol-induced depressive disorder. Alcohol use disorder. Cocaine use disorder. Hallucinogen use disorder. Holcomb II: Antisocial personality traits. IMPRESSION: The patient is a 37-year-old single white male with a history of polysubstance abuse as well as psychotic and affective problems, who comes back to the hospital within 24 hours of his most recent discharge, having already spent most of his money for the month on drugs. He is endorsing suicidality, but appears to have ulterior motives and that he would like to be sent to rehab and to penitentiary housing program thereafter. The patient was willing to sign paperwork allowing his information to be sent to inpatient substance abuse recovery programs, which is further than we have been able to get in his recent spate of psychiatric admissions. PLAN/RECOMMENDATIONS: The patient is readmitted to the Adult Behavioral Health Unit where he is placed on q.15 minutes checks for his own safety. We will resume his most recent medication regimen including gabapentin 600 mg t.i.d., olanzapine 5 mg in the morning, and 10 mg in the evening, and Remeron 30 mg at bedtime. While he is here, he is certainly encouraged to avail himself of all groups and cooperate with milieu treatments. We will do everything we can to get him referred and transferred to a qualified Substance Abuse Recovery Program. [id number]/CPS #: [id number]
[2018-05-30] MEDS: Gabapentin CAP(*) 300 MG PO SCH (09:20)
[2018-05-30] MEDS: Vitamin THERAPEUTIC TAB PO SCH (09:21)
[2018-05-30] MEDS: OLANzapine TAB* 5 MG PO SCH (09:21)
[2018-05-30] MEDS: Nicotine PATCH 14 MG/24 HR* PATCH TRANSDERM SCH (09:21)
[2018-05-30] MEDS: Nicotine GUM* 2 MG PO PRN ×4 (09:22→21:12)
[2018-05-30] MEDS: Nicotine Inhaler* 10 MG AMP INH PRN ×5 (09:22→21:12)
[2018-05-30 09:27] VITALS: BP 106/76
--- NOTE | 2018-05-30 11:35 | PN ---
Subjective - Subjective Date of Service: 05/30/18 Service Type: 21348 Hosp care 15 min low complexity Subjective: Ranjit became upset at the treatment team this AM, storming to his room and cursing loudly when he perceived we were pushing him to hard to work on his recovery by cleaning himself up for his meeting with the [employer] agency. Nonetheless, he did meet with that underwriting account representative and agreed to be referred to a [facility] substance abuse recovery program in [place], [place]. The plan is for him to get a ride from [employer] tomorrow to the bus station in [place], [place] and then take a bus to [place]. He will be granted bagged meals from the hospital in order to sustain himself on the trip. His bus ticket will be partially paid for by the public assistance funds he received at the beginning of month and partially underwritten by the hospital. He denies SI or HI. It is my understanding that the [facility] program is a religiously based program and will not allow him to smoke cigarettes or take medications. Ranjit expresses understanding of this and is agreeable with the immediate discontinuation of meds. Objective - Appearance Appearance: Well Developed/Nourished Dysmorphic Features: No Hygiene: Normal Grooming: Well Kept - Behavior Psychomotor Activities: Normal Exhibits Abnormal Movement: No - Attitude and Relatedness Attitude and Relatedness: Cooperative Eye Contact: Good - Speech Quality: Unpressured Latencies: Normal Quantity: Terse - Mood Patient's Decription of Mood: "Fine" - Affect Observed Affect: Tense Affect Consistent with: Dysphoria - Thought Process Patient's Thought Process: Goal Directed Thought Content: No Passive Wish, No Suicidal Planning, No Homicidal Ideation, No Paranoid Ideation - Sensorium Experiencing Hallucinations: No, Sensorium is Clear Type of Hallucinations: Visual: No, Auditory: No, Command: No - Level of Consciousness Level of Consciousness: Alert Orientation: Yes Intact, Yes Orientated to Time, Yes Orientated to Place, Yes Orientated to Person - Impulse Control Impulse Control: Poor - Insight and Judgement Insight and Judgement: Impaired - Group Participation Particating in Group Activities: Yes - Medication Management Medication Management Adherence: Yes Assessment - Assessment Merits Inpatient Hospitalization: For Discharge Planning Inpatient DSM-V Dx: F10.24 Clinical Impression: 37 y.o. single, white male with a history of polysubstance misuse (cocaine, hallucinogens, alcohol) who presents voluntarily from the community less than 24 hours following his most recent discharge from [facility] due to rapid relapse into drug abuse and resumption of SI. Plan - Plan Treatment Plan: Name: RANJIT SHELTON Birthdate: 1980 [id number] We will discontinue all psych meds except prn hydroxyzine. The patient will be discharged tomorrow AM to [facility], who will take him to the [facility] in [place], [place] and then on to his [place], [place] for substance abuse rehab at [facility]. Medications: Current Medications Acetaminophen (Tylenol Tab*) 650 mg PO Q4H PRN PRN Reason: PAIN or TEMP > 101 F Al Hydrox/Mg Hydrox/Simethicone (Maalox Plus*) 30 ml PO Q4H PRN PRN Reason: INDIGESTION Device (Nicotine Mouth Piece*) 1 each INH .[facility] Last Admin: 05/29/18 08:49 Dose: 1 each Gabapentin (Neurontin Cap(*)) 600 mg PO TID [facility] Last Admin: 05/30/18 09:20 Dose: 600 mg Mirtazapine (Remeron Tab*) 30 mg PO BEDTIME [facility] Last Admin: 05/29/18 20:24 Dose: 30 mg Multivitamins (Theragran Tab*) 1 tab PO DAILY [facility] Last Admin: 05/30/18 09:21 Dose: 1 tab Nicotine (Nicotine Inhaler*) 10 mg INH Q2H PRN PRN Reason: CRAVING Last Admin: 05/30/18 11:08 Dose: 10 mg Nicotine (Nicotine Patch 14 Mg/24 Hr*) 1 patch TRANSDERM DAILY [facility] Last Admin: 05/30/18 09:21 Dose: 1 patch Nicotine Polacrilex (Nicotine Gum*) 2 mg PO Q2H PRN PRN Reason: CRAVING Last Admin: 05/30/18 11:08 Dose: 2 mg Olanzapine (Zyprexa Tab*) 10 mg PO BEDTIME [facility] Last Admin: 05/29/18 20:24 Dose: 10 mg Olanzapine (Zyprexa Tab*) 5 mg PO QAM [facility] Last Admin: 05/30/18 09:21 Dose: 5 mg Pharmacy Profile Note (Nicotine Patch Removal Note*) 1 note PATCH OFF [address] [facility] Last Admin: 05/29/18 20:49 Dose: 1 note - Discharge Plan Discharge Plan: Drug/Alcohol Rehab
[2018-05-30] MEDS: Acetaminophen TAB* 325 MG PO PRN (21:12)
[2018-05-30] MEDS: hydrOXYzine HCL TAB* 50 MG PO PRN (21:12)
[2018-05-30] MEDS: Nicotine Patch Removal NOTE PATCH OFF SCH (22:07)
[2018-05-31] MEDS: Nicotine GUM* 2 MG PO PRN (08:41)
[2018-05-31] MEDS: Vitamin THERAPEUTIC TAB PO SCH (08:41)
[2018-05-31] MEDS: Nicotine Inhaler* 10 MG AMP INH PRN (08:41)
[2018-05-31] MEDS: Acetaminophen TAB* 325 MG PO PRN (08:41)
[2018-05-31] MEDS: hydrOXYzine HCL TAB* 50 MG PO PRN (08:41)
[2018-05-31] MEDS: Nicotine PATCH 14 MG/24 HR* PATCH TRANSDERM SCH (08:42)
--- NOTE | 2018-05-31 21:24 | DS ---
DISCHARGE SUMMARY: DATE OF ADMISSION: 05/28/18 DATE OF DISCHARGE: 05/31/18 DISCHARGE DIAGNOSES: As follows: [place] I: Malingering, alcohol induced depressive disorder, alcohol use disorder , cocaine use disorder, hallucinogen use disorder. [place] II: Antisocial personality traits. CONDITION AT THE TIME OF DISCHARGE: Stable. The patient shows no evidence of drug or alcohol withdrawal. He has actually been more cooperative than multiple of his recent admissions. As evidence of this he filled out his CATHIE packet and allowed us to refer him to a substance abuse work program in [place], [place]. He is agreeable to transportation to that program and he is denying suicidal or homicidal ideations. The treatment team is encouraged that Ranjit is finally getting the substance abuse treatment in a long- term program that he desperately needs. MENTAL STATUS EXAM: The patient is a young white male with reddish, tinning hair. He has a goatee chong, he is wearing street clothing. He is calm, cooperative, makes good eye contact. Speech: Has a normal rate, tone, and volume. Thought process in linear and goal directed. Thought content is significant for his desire to go to rehab. He denies suicidal or homicidal ideations. He denies auditory or visual hallucinations. Insight and judgement appear to be fair given his willingness to go to Rehab. Cognitively, he is awake and alert with what would appear to be an average intellect. LABS: Most recent metabolic testing was completed on the 05/19/18. At that time his hemoglobin A1c was 4.8%, triglycerides 319, cholesterol 174, LDL cholesterol 67, and HDL cholesterol 42.9. DISCHARGE INSTRUCTIONS: To the patient are as follows: A: Medications: None. B. Diet: Regular. C. Activities: As per [facility] protocol. The patient is a smoker, however, he is declining nicotine replacement therapy given the fact that he is moving to [place]. He is not given any local resources for nicotine discontinuation. There are no laboratory or diagnostic studies pending at the time of discharge. D. Followup-care. The patient will follow up with the [facility] in [place], [place]. They will be responsible for all referrals from that setting. E. Substance abuse followup. Again the patient is referred to the [facility] in [place], [place]. HOSPITAL COURSE - PART A: Reason for Admission: The patient is a 37-year-old single white male with a history of alcohol and cocaine abuse as well as psychotic and affect problems who was just discharged from our service on who returned to our emergency room 24 hours later having already spent all of his money for the cheque he received on the first of the month, presumably on substance abuse; who now presents with suicidal ideations and requests for substance abuse treatment. The patient was held in the emergency room for close to 3 days while we tried to find an Inpatient Rehab who would accept him; however, there were none available. He did state that he had been using hallucinogenic drugs which he had purchased from a friend following discharge and he had no monitory resources for the rest of the month. At that time, the patient was willing to go to a Rehab despite his refusal to do so during his last several admission and in fact he was also willing to sign the CATHIE packet right in our emergency room along with consent forms to contract for substance abuse recovery programs. HOSPITAL COURSE - PART B: Psychiatric treatment rendered. The patient was admitted to the Adult Behavioral Health Unit and placed on q.15 minute checks for his own safety. As previously noted he had already signed all the forms necessary for us to start looking for substance abuse programs. None of the regional substance abuse inpatient facilities would accept him due to his well- documented history of antisocial personality traits and malingering; however, we were able to locate a program in his [place], [place], which was a [facility] [email or web address] work program. They necessitated that he not be on any psychiatric or other medications and for that reason we took him off Zyprexa, Remeron, and gabapentin which he had most recently been on. The patient tolerated the discontinuation of his meds well. Working with the [employer] we were able to get him transportation from [place] to [place] where his plan was to accept a one-way bus ticket from [place], [place] to [place], [place] where he would be picked up at the bus station by the [facility] [email or web address] program. Ranjit was cooperative throughout this process and eager for substance abuse treatment. He was fairly easy to work with during this brief hospitalization. Throughout the hospital stay he denied suicidal ideations as long as his housing needs were met and he denies any thoughts of self harm or hurting other people on his day of discharge. We wish Ranjit the best for a healthy, safe, and sober future. [id number]/[facility] #: [id number] NATHALY
== END 2018-05-31 10:30 | DRG 897 ==
LOC: ED 18:01 → BSU 05-28 19:05
PROVIDERS: ADMIT Psychiatry & Neurology Psychiatry; ATTEND Psychiatry & Neurology Psychiatry
PROC: GZHZZZZ Group Psychotherapy (ICD-10-PCS; principal; 2018-05-28)
DX: F10.14 Alcohol abuse with alcohol-induced mood disorder (principal); R45.851 Suicidal ideations; F32.9 Major depressive disorder, single episode, unspecified; F41.0 Panic disorder [episodic paroxysmal anxiety]; I10 Essential (primary) hypertension; M79.7 Fibromyalgia; G89.29 Other chronic pain; M79.2 Neuralgia and neuritis, unspecified; F43.10 Post-traumatic stress disorder, unspecified; F20.9 Schizophrenia, unspecified; F17.210 Nicotine dependence, cigarettes, uncomplicated; F16.10 Hallucinogen abuse, uncomplicated; Y90.9 Presence of alcohol in blood, level not specified; F14.10 Cocaine abuse, uncomplicated; Z82.49 Family history of ischemic heart disease and other diseases of the circulatory system; Z83.3 Family history of diabetes mellitus; Z81.8 Family history of other mental and behavioral disorders; Z76.5 Malingerer [conscious simulation]; Z91.5 Personal history of self-harm; Z88.8 Allergy status to other drugs, medicaments and biological substances
CPT/HCPCS: 36415; 80053; 80307; 80320; 80329; 81003; 84443; 85025; 90853; 93005; 99222; 99231; 99238; 99284; A9270-GY; G0480; J1200; J1630; J2060